=== PATIENT | male | born 1950 | race Hispanic/Latino ===

== ENCOUNTER 2019-02-23 00:08 | Emergency (ER) | payer MEDICARE ==
[2019-02-23] MEDS ORDERED: NACL 0.9% 1000 ML 1,000 ML IV ONE (00:55)
[2019-02-23 01:23] LABS: Basophils % (Auto) 0.7 % (0.0-1.8); Eosinophils # (Auto) 0.1 K/mm3 (0.0-0.4); Eosinophils % (Auto) 2.7 % (0.0-4.3); Hematocrit 44.5 % (35.5-45.6); Hemoglobin 15.5 gm/dl (11.8-15.2); Lymphocytes # (Auto) 1.1 K/mm3 (1.2-5.4); Lymphocytes % (Auto) 27.4 % (13.4-35.0); Mean Corpuscular HGB Conc 35 % (32-34); Mean Corpuscular Volume 98 fl (84-94); Monocytes # (Auto) 0.5 K/mm3 (0.0-0.8); Monocytes % (Auto) 11.7 % (0.0-7.3); Platelet Count 166 K/mm3 (140-440); Red Blood Count 4.55 M/mm3 (3.65-5.03); Red Cell Distribution Width 16.2 % (13.2-15.2)
[2019-02-23 01:31] LABS: INR 0.88 (0.87-1.13)
[2019-02-23 01:43] LABS: Albumin 3.7 g/dL (3.9-5); Calcium 9.4 mg/dL (8.4-10.2)
[2019-02-23 04:02] VITALS: BP 150/85
--- NOTE | 2019-02-23 04:38 | Cat Scan Report ---
PROCEDURE: CT HEAD/BRAIN WO CON TECHNIQUE: Computerized tomography of the head was performed without contrast material. HISTORY: weakness COMPARISONS: None . FINDINGS: Skull and scalp: Normal . Paranasal sinuses: Normal . Ventricles and subarachnoid spaces: Normal . Cerebrum: No evidence of hemorrhage, acute infarction or mass. Mild atrophy is noted . Cerebellum and brainstem: No evidence of hemorrhage, acute infarction or mass . Vasculature: Normal . Other: None . ASPECTS: 10 IMPRESSION: There is no evidence of an acute intracranial process. . This document is electronically signed by Sunshine Holley DO., Feb 23 2019 04:36:45 AM ET
--- NOTE | 2019-02-23 04:55 | Emergency Department Report ---
- General Chief complaint: Weakness Stated complaint: WEAKNESS Time Seen by Provider: 02/23/19 00:54 Source: patient, EMS Mode of arrival: Wheelchair Limitations: Physical Limitation - History of Present Illness Initial comments: Patient presents with generalized weakness, frequent fall for the past two - three months. He denies any focal weakness, n/v, chest pain or sob. His symptoms gets worse after taking his medications. no alleviating factors. he gets around with a cane, which helps a lot. - Related Data Home Medications Medication Instructions Recorded Confirmed Last Taken Divalproex ER [Depakote ER] 500 mg PO QHS 12/18/13 08/01/14 Unknown traZODone [Desyrel] 150 mg PO QHS 12/18/13 08/01/14 Unknown Allergies Allergy/AdvReac Type Severity Reaction Status Date / Time No Known Allergies Allergy Verified 08/01/14 07:29 ED Review of Systems ROS: Stated complaint: WEAKNESS Other details as noted in HPI Comment: All other systems reviewed and negative Respiratory: denies: cough Cardiovascular: denies: chest pain, dyspnea on exertion Gastrointestinal: denies: abdominal pain, nausea, vomiting Genitourinary: denies: urgency Musculoskeletal: denies: back pain Skin: denies: rash Neurological: weakness. denies: headache ED Past Medical Hx - Past Medical History Previous Medical History?: Yes Hx Psychiatric Treatment: Yes Additional medical history: Bipolar, anxiety, hyperlipidemia - Social History Smoking Status: Never Smoker Substance Use Type: Alcohol - Medications Home Medications: Home Medications Medication Instructions Recorded Confirmed Last Taken Type Divalproex ER [Depakote ER] 500 mg PO QHS 12/18/13 08/01/14 Unknown History traZODone [Desyrel] 150 mg PO QHS 12/18/13 08/01/14 Unknown History ED Physical Exam - General Limitations: Physical Limitation General appearance: alert - Head Head exam: Present: atraumatic, normocephalic - Eye Eye exam: Present: normal appearance Pupils: Present: normal accommodation - ENT ENT exam: Present: normal exam - Neck Neck exam: Present: normal inspection - Respiratory Respiratory exam: Present: normal lung sounds bilaterally - Cardiovascular Cardiovascular Exam: Present: regular rate - GI/Abdominal GI/Abdominal exam: Present: soft, normal bowel sounds - Rectal Rectal exam: Present: deferred - Extremities Exam Extremities exam: Present: normal inspection, full ROM - Back Exam Back exam: Present: normal inspection, full ROM - Neurological Exam Neurological exam: Present: alert, oriented X3, CN II-XII intact - Assessment Assessment Interval: Baseline - Level of Consciousness 1a. Level of Consciousness: alert/keenly responsive - LOC Questions 1b. LOC Questions: answers both correctly - LOC Command 1c. LOC Commands: performs tasks correctly - Best Gaze 2. Best Gaze: normal - Visual 3. Visual: no visual loss - Facial Palsy 4. Facial Palsy: normal symmetrical movement - Motor Arm 5a. Motor Arm Left: no drift 5b. Motor Arm Right: no drift - Motor Leg 6a. Motor Leg Left: no drift 6b. Motor Leg Right: no drift - Limb Ataxia 7. Limb Ataxia: absent - Sensory 8. Sensory: normal - Best Language 9. Best Language: no aphasia - Dysarthria 10. Dysarthria: normal - Extinction and Inattention 11. Extinction/Inattention: no abnormality - Scoring Total Score: 0 Stroke Severity: No Stroke Symptoms ED Course Vital Signs 02/23/19 02/23/19 02/23/19 00:12 00:15 00:16 Temperature 97.9 F Pulse Rate 82 87 Respiratory 20 19 Rate Blood Pressure 129/82 O2 Sat by Pulse 99 99 99 Oximetry 02/23/19 02/23/19 02/23/19 00:30 00:45 01:00 Temperature Pulse Rate 79 79 70 Respiratory 19 19 13 Rate Blood Pressure 155/95 156/97 152/91 O2 Sat by Pulse 96 94 94 Oximetry 02/23/19 02/23/19 02/23/19 01:16 01:30 01:46 Temperature Pulse Rate 73 80 56 L Respiratory 16 18 14 Rate Blood Pressure 152/91 152/91 151/79 O2 Sat by Pulse 100 95 100 Oximetry 02/23/19 02/23/19 02/23/19 02:00 02:15 02:30 Temperature Pulse Rate 55 L 55 L 53 L Respiratory 10 L 9 L 7 L Rate Blood Pressure 151/79 152/82 152/82 O2 Sat by Pulse 99 98 99 Oximetry 02/23/19 02/23/19 02/23/19 02:45 03:00 03:15 Temperature Pulse Rate 54 L 54 L 60 Respiratory 11 L 16 20 Rate Blood Pressure 151/83 148/79 141/74 O2 Sat by Pulse 100 100 96 Oximetry 0502/23/19 02/23/19 03:30 03:45 04:00 Temperature Pulse Rate 56 L 54 L 59 L Respiratory 16 20 14 Rate Blood Pressure 136/75 138/76 150/85 O2 Sat by Pulse 98 98 98 Oximetry ED Medical Decision Making - Lab Data Result diagrams: 02/23/19 01:08 02/23/19 01:08 Critical care attestation.: If time is entered above; I have spent that time in minutes in the direct care of this critically ill patient, excluding procedure time. ED Disposition Clinical Impression: Weakness Disposition: DC-01 TO HOME OR SELFCARE Is pt being admited?: No Does the pt Need Aspirin: No Condition: Stable Instructions: Weakness (ED) Referrals: REDDY YAO MD [Primary Care Provider] - 3-5 Days
== END 2019-02-23 06:46 | disposition home or self-care (01) ==
LOC: ED 00:08
DX: R53.1 Weakness (principal); E78.5 Hyperlipidemia, unspecified
CPT/HCPCS: 36415; 70450; 80053; 85025; 85610; 99284; J7030; 96360

== ENCOUNTER 2019-04-23 23:23 | Emergency (ER) | payer MEDICARE ==
[2019-04-24] MEDS ORDERED: ATIVAN PO ONE (00:40)
[2019-04-24] MEDS ORDERED: ATIVAN ONE (00:40)
--- NOTE | 2019-04-24 00:41 | Emergency Department Report ---
<DAVID SNYDER - Last Filed: 04/24/19 10:13> ED General Adult HPI - General Chief complaint: Urogenital-Male Stated complaint: UNCONTROLLED BADDER AND BOWELS Time Seen by Provider: 04/24/19 00:28 - Related Data Home Medications Medication Instructions Recorded Confirmed Last Taken Divalproex ER [Depakote ER] 500 mg PO QHS 12/18/13 04/24/19 Unknown traZODone [Desyrel] 100 mg PO QHS 12/18/13 04/24/19 Unknown Allergies Allergy/AdvReac Type Severity Reaction Status Date / Time No Known Allergies Allergy Verified 08/01/14 07:29 ED Past Medical Hx - Medications Home Medications: Home Medications Medication Instructions Recorded Confirmed Last Taken Type Divalproex ER [Depakote ER] 500 mg PO QHS 12/18/13 04/24/19 Unknown History traZODone [Desyrel] 100 mg PO QHS 12/18/13 04/24/19 Unknown History ED Course - Consultations Consultation #1: 04/24/19 10:13 case management consult performed. handwritten script for wheelchair provided. ED Medical Decision Making - Lab Data Result diagrams: 04/24/19 00:49 04/24/19 00:49 - Medical Decision Making case management consult compelted at 11:57 pt will have a wheelchair coming to his house Pt did receive po potassium in ed for mild hypokalemia Patient will be discharged home ED Disposition Clinical Impression: Ankle fracture, left, Unable to ambulate, Encounter for wheelchair assessment Disposition: DC-01 TO HOME OR SELFCARE Is pt being admited?: No Does the pt Need Aspirin: No Condition: Stable Instructions: Ankle Fracture (ED) Additional Instructions: . Follow up with your doctor or the clinic/doctor provided. Return if symptoms worsen as indicated by your discharge instructions Referrals: your, orthopedic doctor [Other] - 3-5 Days MICKEY BRENNAN MD [Staff Physician] - 3-5 Days (Orthopedic) Time of Disposition: 11:58 <OLGA LIDIA PISANO - Last Filed: 04/24/19 20:16> ED General Adult HPI - General Source: patient, EMS Mode of arrival: Stretcher Limitations: Physical Limitation - History of Present Illness Initial comments: Patient is 68 years old male with history of hypertension, bipolar disorder and alcohol the Bipolar disorder. Patient brought to the emergency room from home by EMS. Patient called 911 stating that he is unable to care for himself. EMS stated that patient was found crawling on the floor. Patient had a left ankle fracture status post surgery at [facility] with a left leg cast in place. Patient stated that he lived by himself but he is unable to take care of himself since this injury. Patient was recently discharged from a rehabilitation from [facility]. Patient stated that he started urinating and defecating on himself because he is unable to move. Patient denied any chest pain, shortness of breath, abdominal pain or any other symptoms. Severity scale (0 -10): 0 ED Review of Systems ROS: Stated complaint: UNCONTROLLED BADDER AND BOWELS Other details as noted in HPI Comment: All other systems reviewed and negative Constitutional: denies: chills, fever Respiratory: denies: cough, shortness of breath, SOB with exertion, wheezing Cardiovascular: denies: chest pain Gastrointestinal: denies: abdominal pain, nausea ED Past Medical Hx - Past Medical History Previous Medical History?: Yes Hx Hypertension: Yes Hx Psychiatric Treatment: Yes Additional medical history: Bipolar, anxiety, hyperlipidemia, tremors - Surgical History Past Surgical History?: Yes Additional Surgical History: left leg with cast. - Social History Smoking Status: Former Smoker Substance Use Type: None ED Physical Exam - General Limitations: Physical Limitation General appearance: alert, in no apparent distress - Head Head exam: Present: atraumatic, normocephalic, normal inspection - Eye Eye exam: Present: normal appearance, PERRL - ENT ENT exam: Present: normal exam, normal orophraynx, mucous membranes moist - Neck Neck exam: Present: normal inspection, full ROM. Absent: tenderness, meningismus, lymphadenopathy, thyromegaly - Respiratory Respiratory exam: Present: normal lung sounds bilaterally - Cardiovascular Cardiovascular Exam: Present: regular rate, normal rhythm, normal heart sounds - GI/Abdominal GI/Abdominal exam: Present: soft, normal bowel sounds. Absent: distended, tenderness, guarding, rebound, rigid, organomegaly, mass, bruit, pulsatile mass, hernia - Extremities Exam Extremities exam: Present: normal inspection, full ROM, normal capillary refill, other (left leg with a posterior splint.) - Back Exam Back exam: Present: normal inspection, full ROM. Absent: CVA tenderness (R), CVA tenderness (L) - Neurological Exam Neurological exam: Present: alert, oriented X3, CN II-XII intact - Skin Skin exam: Present: warm ED Course Vital Signs 04/23/19 04/24/19 04/24/19 23:48 04:59 06:55 Temperature 98.2 F Pulse Rate 96 H 81 Respiratory 16 16 16 Rate Blood Pressure 122/74 Blood Pressure 122/74 117/68 [Right] O2 Sat by Pulse 99 100 Oximetry ED Medical Decision Making - Lab Data Result diagrams: 04/24/19 00:49 04/24/19 00:49 - EKG Data -: EKG Interpreted by Ct EKG shows normal: sinus rhythm Rate: normal - EKG Data Interpretation: no acute changes - Medical Decision Making Patient is 68 years old male with history of hypertension, bipolar disorder and alcohol the [place]'s. Patient brought to the emergency room from home by EMS. Patient called 911 stating that he is unable to care for himself. EMS stated that patient was found crawling on the floor. Patient had a left ankle fracture status post surgery at [facility] with a left leg cast in place. Patient stated that he lived by himself but he is unable to take care of himself since this injury. Patient was recently discharged from a rehabilitation from [facility]. Patient stated that he started urinating and defecating on himself because he is unable to move. Patient denied any chest pain, shortness of breath, abdominal pain or any other symptoms. Patient labs reviewed that is unremarkable. Patient will need placement. Patient is for social consult in the morning. Critical care attestation.: If time is entered above; I have spent that time in minutes in the direct care of this critically ill patient, excluding procedure time.
[2019-04-24 01:05] LABS: Hematocrit 39.3 % (35.5-45.6); Mean Corpuscular HGB Conc 36 % (32-34); Mean Corpuscular Volume 97 fl (84-94); Platelet Count 243 K/mm3 (140-440); Red Blood Count 4.04 M/mm3 (3.65-5.03); Red Cell Distribution Width 14.6 % (13.2-15.2)
[2019-04-24 01:27] LABS: Alanine Aminotransferase 43 units/L (7-56); Albumin 3.5 g/dL (3.9-5); BUN/Creatinine Ratio 24; Blood Urea Nitrogen 17 mg/dL (9-20); Hemolysis Index 15
[2019-04-24 01:42] LABS: Bilirubin,Direct < 0.2 mg/dL (0-0.2)
[2019-04-24 05:00] VITALS: BP 117/68
[2019-04-24] MEDS ORDERED: K-DUR PO ONE (06:44)
[2019-04-24] MEDS ORDERED: IBUPROFEN PO ONE (06:45)
[2019-04-24] MEDS ORDERED: IBUPROFEN ONE (06:49)
== END 2019-04-24 13:22 | disposition home or self-care (01) ==
LOC: ED 23:23
DX: S82.892A Other fracture of left lower leg, initial encounter for closed fracture (principal); I10 Essential (primary) hypertension; F31.9 Bipolar disorder, unspecified; F41.9 Anxiety disorder, unspecified; E78.5 Hyperlipidemia, unspecified; Z87.891 Personal history of nicotine dependence; Z79.899 Other long term (current) drug therapy; X58.XXXA Exposure to other specified factors, initial encounter; Y93.89 Activity, other specified; Y92.89 Other specified places as the place of occurrence of the external cause; Y99.8 Other external cause status
CPT/HCPCS: 36415; 80053; 80076; 82550; 84484; 85027; 93005; 93010

== ENCOUNTER 2019-06-11 22:52 | Emergency (ER) | payer MEDICARE ==
--- NOTE | 2019-06-11 23:35 | Emergency Department Report ---
HPI - General Chief Complaint: Psych Time Seen by Provider: 06/11/19 23:10 - HPI HPI: 68-year-old male presents to the emergency department via EMS from home with the complaint of depression and suicidal ideations. The patient broke his left ankle about 3 months ago and he has been living at home alone trying to take care of himself, his pet, and says that he is fed up with the living situation. The patient was previously at the [facility] after his injury. He was also in our emergency department in late April for com plaints of having difficulty taking care of himself but he was more of a case management issue then psychiatric, at that time. He says that he has a history of manic depression but previous records state there is a history of bipolar disorder. The patient follows with Dr. Benoit Araiza for psychiatry. He says he is previously on clonazepam but he has been out of this medication for the past month or 2 as he says someone else "picked it up" and therefore he was told he was not able to get any refill. Patient says that he has thoughts of harming himself "if I have to continue living like this." He denies any homicidal ideations. He denies any current hallucinations but says that he will have them sometimes. ED Past Medical Hx - Past Medical History Previous Medical History?: Yes Hx Hypertension: Yes Hx Psychiatric Treatment: Yes Additional medical history: Bipolar, anxiety, hyperlipidemia, tremors - Surgical History Past Surgical History?: Yes Additional Surgical History: left leg with cast. - Social History Smoking Status: Never Smoker Substance Use Type: Alcohol - Medications Home Medications: Home Medications Medication Instructions Recorded Confirmed Last Taken Type Divalproex ER [Depakote ER] 500 mg PO QHS 12/18/13 06/12/19 Unknown History traZODone [Desyrel] 100 mg PO QHS 12/18/13 06/12/19 Unknown History ED Review of Systems ROS: Stated complaint: MH EVAL Other details as noted in HPI Comment: All other systems reviewed and negative Constitutional: denies: chills, fever Eyes: denies: eye pain, vision change ENT: denies: ear pain, throat pain Respiratory: denies: cough, shortness of breath Cardiovascular: denies: chest pain, palpitations Gastrointestinal: denies: abdominal pain, vomiting Genitourinary: denies: dysuria, discharge Musculoskeletal: arthralgia (chronic left ankle and leg pain from fracture). denies: back pain Skin: denies: rash, lesions Neurological: denies: headache, numbness Psychiatric: depression, suicidal thoughts. denies: homicidal thoughts Physical Exam - Physical Exam Vital Signs: Vital Signs 06/11/19 23:24 Temperature 98.2 F Pulse Rate 67 Respiratory 19 Rate Blood Pressure 107/61 [Left] O2 Sat by Pulse 99 Oximetry Physical Exam: GENERAL: The patient is well-developed well-nourished. HENT: Normocephalic. Atraumatic. Patient has moist mucous membranes. EYES: Extraocular motions are intact. NECK: Supple. Trachea is midline. CHEST/LUNGS: Clear to auscultation. There is no respiratory distress noted. HEART/CARDIOVASCULAR: Regular. There is no tachycardia. There is no murmur. ABDOMEN: Abdomen is soft, nontender. Patient has normal bowel sounds. There is no abdominal distention. SKIN: Skin is warm and dry. NEURO: The patient is awake, alert, and oriented. The patient is cooperative. The patient has no focal neurologic deficits. Normal speech. MUSCULOSKELETAL: There is no tenderness or deformity. Left lower extremity in a cast. Capillary refill less than 2 seconds to the affected left toes. ED Course Vital Signs 06/11/19 23:24 Temperature 98.2 F Pulse Rate 67 Respiratory 19 Rate Blood Pressure 107/61 [Left] O2 Sat by Pulse 99 Oximetry ED Medical Decision Making - Lab Data Result diagrams: 06/11/19 23:33 06/11/19 23:33 - Medical Decision Making This patient presents to the emergency department with suicidal ideations and depression secondary to his current living situation. He is having difficulty taking care of himself, his pet, with the broken ankle/leg. He also appears to have a psychiatric history of manic depression versus bipolar disorder and has not been on his medications. He was made a 1013. Labs are unremarkable. Vital signs stable throughout his ED course. The patient is medically cleared for psychiatric placement. - Differential Diagnosis depression, bipolar disorder, substance abuse Critical Care Time: No Critical care attestation.: If time is entered above; I have spent that time in minutes in the direct care of this critically ill patient, excluding procedure time. ED Disposition Clinical Impression: Suicidal ideations Depression Qualifiers: Depression Type: unspecified Qualified Code(s): F32.9 - Major depressive disorder, single episode, unspecified Is pt being admited?: No Condition: Stable Time of Disposition: 06:27
[2019-06-11 23:43] LABS: Basophils % (Auto) 0.8 % (0.0-1.8); Eosinophils % (Auto) 0.9 % (0.0-4.3); Hematocrit 40.2 % (35.5-45.6); Hemoglobin 13.7 gm/dl (11.8-15.2); Lymphocytes # (Auto) 1.4 K/mm3 (1.2-5.4); Lymphocytes % (Auto) 25.3 % (13.4-35.0); Mean Corpuscular HGB Conc 34 % (32-34); Mean Corpuscular Volume 93 fl (84-94); Monocytes # (Auto) 0.4 K/mm3 (0.0-0.8); Monocytes % (Auto) 7.9 % (0.0-7.3); Platelet Count 280 K/mm3 (140-440); Red Blood Count 4.32 M/mm3 (3.65-5.03); Red Cell Distribution Width 13.4 % (13.2-15.2)
[2019-06-12 00:03] LABS: BUN/Creatinine Ratio 11; Blood Urea Nitrogen 12 mg/dL (9-20); Calcium 9.1 mg/dL (8.4-10.2); Hemolysis Index 12
[2019-06-12] MEDS ORDERED: IBUPROFEN PO ONE (01:19)
[2019-06-12] MEDS ORDERED: XANAX PO ONE (01:19)
[2019-06-12 05:38] LABS: Amphetamine Screen,Urine PRESUMPTIVE NEGATIVE; Benzodiazepines Screen,Urine PRESUMPTIVE NEGATIVE; Cannabinoid Screen,Urine PRESUMPTIVE NEGATIVE; Cocaine Screen,Urine PRESUMPTIVE NEGATIVE; Methadone Screen,Urine PRESUMPTIVE NEGATIVE; Opiate Screen,Urine PRESUMPTIVE NEGATIVE
[2019-06-12 05:41] LABS: Bacteria,Urine 1+ /HPF (Negative); Bilirubin,Urine NEG (Negative); Blood,Urine NEG (Negative); Color,Urine Yellow (Yellow); Mucus,Urine FEW /HPF; Protein,Urine <15 mg/dL mg/dL (Negative); Urobilinogen,Urine < 2.0 mg/dL (<2.0)
[2019-06-12 08:07] VITALS: BP 117/80
--- NOTE | 2019-06-12 10:28 | Consultation ---
History of Present Illness - Reason for Consult Consult date: 06/12/19 Reason for consult: Mental Health Evaluation Requesting physician: MELODY GUPTA - Chief Complaint Chief complaint: "I will do it if I return home" - History of Present Psychiatric Illness 68 y.o. white male who presented to the ER for SI's. Today the patient was calm and cooperative during the assessment. He stated that he cannot take care of himself so he feel suicidal. He stated that he "broke his left ankle and was placed in a rehab facility for several weeks. He stated that he was told by staff at the rehab facility that he will have help at home when discharged, he stated, "I don't have any help. I'm all alone" He stated that life is hard for him and do not have any family support at this time. He rate his depression 7 /10, with 10 being the worse. He denies any previous suicide attempts when asked. He stated that he has a hx of depression and took Prozac in the past. He stated. "If I go home I will kill myself." He denies HI's and AVH's. He denies erratic sleep and a poor appetite. He denies recreational drug use, but acknowledged a hx of alcohol abuse. He stated that he have been sober for "21 years." Medications and Allergies Allergies Allergy/AdvReac Type Severity Reaction Status Date / Time No Known Allergies Allergy Verified 08/01/14 07:29 Home Medications Medication Instructions Recorded Confirmed Last Taken Type Divalproex ER [Depakote ER] 500 mg PO QHS 12/18/13 06/12/19 Unknown History traZODone [Desyrel] 100 mg PO QHS 12/18/13 06/12/19 Unknown History Past psychiatric history - Past Medical History Past Medical History: other (fx left ankle) Past Surgical History: No surgical history - past Psychiatric treatment and history psychiatric treatment history: H xof mood/anxiety do per the patient. Denies a fam psy hx. - Social History Social history: Lives alone Mental Status Exam - Vital signs Last Vital Signs Temp 97.5 F L 06/12/19 08:06 Pulse 64 06/12/19 08:06 Resp 18 06/12/19 08:06 BP 117/80 06/12/19 08:06 Pulse Ox 98 06/12/19 08:06 - Exam Narrative exam: MSE: Appearance: calm, cooperative Behavior: regular eye contact Speech: regular rate and low tone Mood: "okay" Affect: congruent to mood Thought Process: circumstantial Thought Content: denies HI's and AVH's Motor Activity: ambulatory Cognition: A/O x 3 Insight: variable Judgment: poor Results Result Diagrams: 06/11/19 23:33 06/11/19 23:33 Abnormal lab results 06/11/19 06/11/19 Range/Units 23:33 23:33 Lamar % (Auto) 7.9 H (0.0-7.3) % Glucose 120 H (75-100) mg/dL All other labs normal. Assessment and Plan Assessment and plan: Impression: MDD. Today the patient was calm during the assessment. The patient endorsed SI's. DDx: Bipolar DO Recommendation/Plan: Continue 1013. Dispo: The patient was accepted at [facility] for inpatient psy services. Staffed with Dr Debbie Canas.
[2019-06-12] MEDS ORDERED: ULTRAM PO ONE (11:23)
[2019-06-12] MEDS ORDERED: ATIVAN PO ONE (11:23)
== END 2019-06-12 12:19 | disposition other institution (70) ==
LOC: ED 22:52 → EEVIPCON 22:52 → ED 06-12 12:19
DX: F32.9 Major depressive disorder, single episode, unspecified (principal)
CPT/HCPCS: 36415; 80048; 80307; 80320; 81001; 85025; G0480

== ENCOUNTER 2019-07-16 02:46 | Emergency (ER) | payer MEDICARE ==
[2019-07-16] MEDS ORDERED: TORADOL IM ONE (04:31)
--- NOTE | 2019-07-16 05:22 | XRay Report ---
LEFT ANKLE, 3 VIEWS 07/16/2019 INDICATION / CLINICAL INFORMATION: ankle pain swelling. COMPARISON: None available. 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 There also appears to be a nonacute posterior tibial fracture which may be united. There are advanced degenerative changes of the ankle. There is posterior talar subluxation.. No acute fractures. Signer Name: Jose Raul Patel MD Signed: 07/16/2019 5:17 AM Workstation Name: [id number]
--- NOTE | 2019-07-16 05:30 | Emergency Department Report ---
ED Lower Extremity HPI - General Chief Complaint: Extremity Injury, Lower Stated Complaint: LEG PAIN Time Seen by Provider: 07/16/19 04:31 Source: patient, EMS Mode of arrival: Ambulatory Limitations: No Limitations - History of Present Illness Initial Comments: This is a 68-year-old white male who presents for left ankle pain patient states follow ankle fracture 4 months ago, patient was followed by orthopedics Dr. Reyes states he hadn't taken the splint off because it was bothering him and got too tight. patient presents tonight requesting splint and crutches. PT denies new fall injury or trauma, pt has been walking on ankle up to this point. symptoms include swelling and pain. MD Complaint: ankle injury Onset/Timin -: month(s) Injury: Ankle: Left (pain swelling ) Type of Injury: hyperextension Place: home Severity: moderate Severity scale (0 -10): 5 Worsens With: weight bearing, movement, palpation Context: fall Other Symptoms: other (none) Associated Symptoms: swelling, tingling, able to partially bear weight. denies: snap/pop sensation, numbness - Related Data Home Medications Medication Instructions Recorded Confirmed Last Taken Divalproex ER [Depakote ER] 500 mg PO QHS 12/18/13 06/12/19 Unknown traZODone [Desyrel] 100 mg PO QHS 12/18/13 06/12/19 Unknown Previous Rx's Medication Instructions Recorded Last Taken Type Acetaminophen/Codeine [Tylenol 1 tab PO Q6H PRN #12 tab 07/16/19 Unknown Rx /Codeine # 3 tab] Allergies Allergy/AdvReac Type Severity Reaction Status Date / Time No Known Allergies Allergy Verified 08/01/14 07:29 ED Review of Systems ROS: Stated complaint: LEG PAIN Other details as noted in HPI Constitutional: denies: chills, fever Eyes: denies: eye pain, eye discharge, vision change ENT: denies: ear pain, throat pain Respiratory: denies: cough, shortness of breath, wheezing Cardiovascular: denies: chest pain, palpitations Endocrine: no symptoms reported Gastrointestinal: denies: abdominal pain, nausea, diarrhea Genitourinary: denies: urgency, dysuria Musculoskeletal: joint swelling (left ankle ), arthralgia Skin: denies: rash, lesions Neurological: denies: headache, weakness, paresthesias Psychiatric: denies: anxiety, depression Hematological/Lymphatic: denies: easy bleeding, easy bruising ED Past Medical Hx - Past Medical History Previous Medical History?: Yes Hx Hypertension: Yes Hx Psychiatric Treatment: Yes Additional medical history: Bipolar, anxiety, hyperlipidemia, tremors - Surgical History Past Surgical History?: No Additional Surgical History: left leg with cast. - Social History Smoking Status: Never Smoker Substance Use Type: None - Medications Home Medications: Home Medications Medication Instructions Recorded Confirmed Last Taken Type Divalproex ER [Depakote ER] 500 mg PO QHS 12/18/13 06/12/19 Unknown History traZODone [Desyrel] 100 mg PO QHS 12/18/13 06/12/19 Unknown History Acetaminophen/Codeine [Tylenol 1 tab PO Q6H PRN #12 tab 07/16/19 Unknown Rx /Codeine # 3 tab] ED Physical Exam - General Limitations: No Limitations General appearance: alert, in no apparent distress - Head Head exam: Present: atraumatic, normocephalic - Eye Eye exam: Present: normal appearance, PERRL, EOMI Pupils: Present: normal accommodation - ENT ENT exam: Present: mucous membranes moist - Neck Neck exam: Present: normal inspection, full ROM. Absent: tenderness - Respiratory Respiratory exam: Present: normal lung sounds bilaterally. Absent: respiratory distress, wheezes, stridor, chest wall tenderness - Cardiovascular Cardiovascular Exam: Present: regular rate, normal rhythm, normal heart sounds. Absent: systolic murmur, diastolic murmur, rubs, gallop - GI/Abdominal GI/Abdominal exam: Present: soft, normal bowel sounds - Rectal Rectal exam: Present: deferred - Extremities Exam Extremities exam: Present: normal inspection, tenderness, normal capillary refill, joint swelling - Back Exam Back exam: Present: normal inspection, full ROM. Absent: tenderness, CVA tenderness (R), CVA tenderness (L) - Neurological Exam Neurological exam: Present: alert, oriented X3 - Psychiatric Psychiatric exam: Present: normal mood, anxious - Skin Skin exam: Present: warm, dry, intact, normal color. Absent: rash ED Course Vital Signs 07/16/19 07/16/19 02:56 04:52 Temperature 97.6 F Pulse Rate 85 Respiratory 18 16 Rate Blood Pressure 143/90 O2 Sat by Pulse 96 Oximetry ED Lower Extremity MDM - EKG Data Interpretation: normal EKG - Radiology Data Radiology results: report reviewed, image reviewed Loc: ED Attending Dr: Ordering Physician: HANH JOHNS NP Date of Service: 07/16/19 Procedure(s): XR ankle 3+V LT Accession Number(s): [id number] cc: HANH JOHNS NP Fluoro Time In Minutes: LEFT ANKLE, 3 VIEWS 07/16/2019 INDICATION / CLINICAL INFORMATION: ankle pain swelling. COMPARISON: None available. 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 There also appears to be a nonacute posterior tibial fracture which may be united. There are advanced degenerative changes of the ankle. There is posterior talar subluxation.. No acute fractures. Signer Name: Jose Raul Patel MD Signed: 07/16/2019 5:17 AM Workstation Name: [id number] Transcribed By: GA Dictated By: Jose Raul Patel MD Electronically Authenticated By: Jose Raul Patel MD Signed Date/Time: 07/16/19 0517 - Medical Decision Making Mrs. an old fracture patient continues to walk on leg and removed symptoms for plan we'll place velcro ankle stirrup, crutches and follow up with orthopedic surgery, in 2-3 days, tylenol #3 prn pain , pt verbalized agreement and understanding of discharge plan, splint check, distal pusles +2, splint spacing is appropriate. Critical care attestation.: If time is entered above; I have spent that time in minutes in the direct care of this critically ill patient, excluding procedure time. ED Disposition Clinical Impression: Musculoskeletal pain Ankle fracture, left Qualifiers: Encounter type: initial encounter Fracture type: closed Qualified Code(s): S82.892A - Other fracture of left lower leg, initial encounter for closed fracture Disposition: -01 TO HOME OR SELFCARE Is pt being admited?: No Does the pt Need Aspirin: No Condition: Stable Instructions: Ankle Fracture (ED), Crutch Instructions (ED), Splint Care (ED) Prescriptions: Acetaminophen/Codeine [Tylenol /Codeine # 3 tab] 1 tab PO Q6H PRN #12 tab PRN Reason: pain Referrals: MICKEY BRENNAN MD [Staff Physician] - 3-5 Days Time of Disposition: 05:56
[2019-07-16 07:03] VITALS: BP 141/92
== END 2019-07-16 07:01 | disposition home or self-care (01) ==
LOC: ED 02:46
DX: S82.892A Other fracture of left lower leg, initial encounter for closed fracture (principal); I10 Essential (primary) hypertension; F31.9 Bipolar disorder, unspecified; Z79.899 Other long term (current) drug therapy; X58.XXXA Exposure to other specified factors, initial encounter; Y93.89 Activity, other specified; Y92.89 Other specified places as the place of occurrence of the external cause; Y99.8 Other external cause status
CPT/HCPCS: 29515; 73610; 96372; 99283; J1885

== ENCOUNTER 2019-09-23 14:33 | Emergency (ER) | payer MEDICARE ==
[2019-09-23] MEDS ORDERED: HYDROcodone/ACETAMINOPHEN 5-325 MG TAB PO ONE (19:26)
--- NOTE | 2019-09-23 19:35 | Emergency Department Report ---
ED Lower Extremity HPI - General Chief Complaint: Extremity Injury, Lower Stated Complaint: CHEST PAIN/LT ANKLE PAIN Time Seen by Provider: 09/23/19 18:36 Source: patient, EMS Mode of arrival: Ambulatory Limitations: Physical Limitation - History of Present Illness Initial Comments: Mr. Berry is a 68-year-old white male who presents for left ankle pain , this is acute on chronic 02/09, patient denies no fall injury or trauma. Patient is status post ORIF repair of same In April of this year. Mr. Peacock denies chest pain ,or shortness of breath, no nausea vomiting ,no diaphoresis. He states that quickly or chest pain, [place] have any chest pain, problems my ankle. Patient states his taken hydrocodone when necessary for pain and is out of medi cation. Mr. Flores was handed to the [facility] gait at this time witnessed by this provider and treatment and evaluation room. MD Complaint: ankle injury Onset/Timin -: month(s) Injury: Ankle: Left Type of Injury: other (hx of fx with orif ) Place: home Severity: moderate Severity scale (0 -10): 5 Improves With: NSAID Worsens With: weight bearing, movement, palpation Context: walking Associated Symptoms: swelling, ambulatory. denies: snap/pop sensation, numbness, tingling - Related Data Home Medications Medication Instructions Recorded Confirmed Last Taken Divalproex ER [Depakote ER] 500 mg PO QHS 12/18/13 08/01/19 Unknown traZODone [Desyrel] 100 mg PO QHS 12/18/13 08/01/19 Unknown Previous Rx's Medication Instructions Recorded Last Taken Type Nitrofurantoin Macrocrysta(Nf) 100 mg PO BID #10 capsule 08/01/19 Unknown Rx [Macrodantin CAP] Folic Acid [Folvite] 1 mg PO QDAY #30 tablet 08/03/19 Unknown Rx Multivitamin Tab [Multiple Vitamin 1 each PO QDAY #30 tablet 08/03/19 Unknown Rx TAB (Theragran)] Primidone [Mysoline] 50 mg PO BID #60 tablet 08/03/19 Unknown Rx Thiamine [Vitamin B-1] 100 mg PO QDAY #30 tablet 08/03/19 Unknown Rx Acetaminophen [Tylenol] 1,000 mg PO Q6HR PRN #30 tablet 09/23/19 Unknown Rx Diclofenac 1% [Diclofenac 1% 1 applicatio TP QID PRN #1 tube 09/23/19 Unknown Rx topical gel] Allergies Allergy/AdvReac Type Severity Reaction Status Date / Time No Known Allergies Allergy Verified 08/01/14 07:29 ED Review of Systems ROS: Stated complaint: CHEST PAIN/LT ANKLE PAIN Other details as noted in HPI Constitutional: denies: chills, fever Eyes: denies: eye pain, eye discharge, vision change ENT: denies: ear pain, throat pain Respiratory: denies: cough, shortness of breath, wheezing Cardiovascular: denies: chest pain, palpitations Endocrine: no symptoms reported Gastrointestinal: denies: abdominal pain, nausea, diarrhea Genitourinary: denies: urgency, dysuria Musculoskeletal: joint swelling, arthralgia, myalgia. denies: back pain Skin: denies: rash, lesions Neurological: denies: headache, weakness, paresthesias Psychiatric: denies: anxiety, depression Hematological/Lymphatic: denies: easy bleeding, easy bruising ED Past Medical Hx - Past Medical History Previous Medical History?: Yes Hx Hypertension: Yes Hx Seizures: Yes Hx Psychiatric Treatment: Yes Additional medical history: Bipolar, anxiety, hyperlipidemia, tremors, alcohol abuse, Chest pain - Surgical History Past Surgical History?: No Additional Surgical History: left leg with cast. - Social History Smoking Status: Never Smoker Substance Use Type: None - Medications Home Medications: Home Medications Medication Instructions Recorded Confirmed Last Taken Type Divalproex ER [Depakote ER] 500 mg PO QHS 12/18/13 08/01/19 Unknown History traZODone [Desyrel] 100 mg PO QHS 12/18/13 08/01/19 Unknown History Nitrofurantoin Macrocrysta(Nf) 100 mg PO BID #10 capsule 08/01/19 Unknown Rx [Macrodantin CAP] Folic Acid [Folvite] 1 mg PO QDAY #30 tablet 08/03/19 Unknown Rx Multivitamin Tab [Multiple Vitamin 1 each PO QDAY #30 tablet 08/03/19 Unknown Rx TAB (Theragran)] Primidone [Mysoline] 50 mg PO BID #60 tablet 08/03/19 Unknown Rx Thiamine [Vitamin B-1] 100 mg PO QDAY #30 tablet 08/03/19 Unknown Rx Acetaminophen [Tylenol] 1,000 mg PO Q6HR PRN #30 tablet 09/23/19 Unknown Rx Diclofenac 1% [Diclofenac 1% 1 applicatio TP QID PRN #1 tube 09/23/19 Unknown Rx topical gel] ED Physical Exam - General Limitations: Physical Limitation General appearance: alert, in no apparent distress - Head Head exam: Present: atraumatic, normocephalic - Eye Eye exam: Present: normal appearance, PERRL, EOMI Pupils: Present: normal accommodation - ENT ENT exam: Present: mucous membranes moist - Neck Neck exam: Present: normal inspection - Respiratory Respiratory exam: Present: normal lung sounds bilaterally, chest wall tenderness. Absent: respiratory distress, wheezes, stridor - Cardiovascular Cardiovascular Exam: Present: regular rate, normal rhythm, normal heart sounds. Absent: systolic murmur, diastolic murmur, rubs, gallop - GI/Abdominal GI/Abdominal exam: Present: soft, normal bowel sounds. Absent: distended, tenderness, bruit, hernia - Rectal Rectal exam: Present: deferred - Extremities Exam Extremities exam: Present: normal inspection, full ROM, normal capillary refill, joint swelling. Absent: tenderness - Expanded Lower Extremity Exam Left Ankle exam: Present: full ROM, swelling, deformity (this is chronic ). Absent: tenderness, abrasion, laceration, ecchymosis, crepidus, dislocation, erythema, anterior draw sign Foot/Toe exam: Present: full ROM. Absent: tenderness, swelling Neuro vascular tendon exam: Absent: pulse deficit, motor deficit, sensory deficit, tendon deficit - Back Exam Back exam: Present: normal inspection, full ROM - Neurological Exam Neurological exam: Present: alert, oriented X3, CN II-XII intact, normal gait, reflexes normal. Absent: motor sensory deficit - Psychiatric Psychiatric exam: Present: normal affect, normal mood - Skin Skin exam: Present: warm, dry, intact, normal color. Absent: rash ED Course Vital Signs 09/23/19 15:17 Temperature 97.8 F Pulse Rate 63 Respiratory 18 Rate Blood Pressure 115/75 O2 Sat by Pulse 100 Oximetry ED Lower Extremity MDM - Medical Decision Making This is arthralgia, chronic ankle pain, plan: DC home prescription for Tylenol allergies mom follow-up with PCP in 2-3 days patient's alert oriented 3 and a steady gait DC'd in stable condition at this time Critical care attestation.: If time is entered above; I have spent that time in minutes in the direct care of this critically ill patient, excluding procedure time. ED Disposition Clinical Impression: Ankle pain, left Qualifiers: Chronicity: acute Qualified Code(s): M25.572 - Pain in left ankle and joints of left foot Disposition: TO HOME OR SELFCARE Is pt being admited?: No Does the pt Need Aspirin: No Condition: Stable Instructions: Arthralgia (ED) Prescriptions: Acetaminophen [Tylenol] 1,000 mg PO Q6HR PRN #30 tablet PRN Reason: pain Diclofenac 1% [Diclofenac 1% topical gel] 1 applicatio TP QID PRN #1 tube PRN Reason: pain Referrals: EDUAR YEE MD [Staff Physician] - 3-5 Days Forms: Work/School Release Form(ED) Time of Disposition: 19:44
[2019-09-23 20:26] VITALS: BP 118/77
[2019-09-24] MEDS ORDERED: ACETAMINOPHEN 325 MG TAB PO ONE (03:30)
[2019-09-24] MEDS ORDERED: ACETAMINOPHEN 325 MG TAB ONE (03:31)
== END 2019-09-24 04:30 | disposition home or self-care (01) ==
LOC: ED 14:33
DX: M25.572 Pain in left ankle and joints of left foot (principal); I10 Essential (primary) hypertension; G40.909 Epilepsy, unspecified, not intractable, without status epilepticus; F31.9 Bipolar disorder, unspecified; Z98.890 Other specified postprocedural states; Z79.899 Other long term (current) drug therapy

== ENCOUNTER 2019-10-30 19:17 | Observation (INO) | payer MEDICARE ==
[2019-10-30 21:19] LABS: Basophils % (Auto) 0.4 % (0.0-1.8); Eosinophils # (Auto) 0.1 K/mm3 (0.0-0.4); Eosinophils % (Auto) 1.6 % (0.0-4.3); Hematocrit 38.4 % (35.5-45.6); Hemoglobin 13.7 gm/dl (11.8-15.2); Lymphocytes # (Auto) 1.6 K/mm3 (1.2-5.4); Lymphocytes % (Auto) 21.7 % (13.4-35.0); Mean Corpuscular HGB Conc 36 % (32-34); Mean Corpuscular Volume 91 fl (84-94); Monocytes # (Auto) 0.5 K/mm3 (0.0-0.8); Monocytes % (Auto) 7.3 % (0.0-7.3); Platelet Count 197 K/mm3 (140-440); Red Blood Count 4.22 M/mm3 (3.65-5.03); Red Cell Distribution Width 13.9 % (13.2-15.2)
[2019-10-30 21:46] LABS: Alanine Aminotransferase 19 units/L (7-56); Albumin 4.1 g/dL (3.9-5); BUN/Creatinine Ratio 10; Blood Urea Nitrogen 13 mg/dL (9-20); Calcium 9.5 mg/dL (8.4-10.2); Hemolysis Index 3
--- NOTE | 2019-10-30 22:32 | Cat Scan Report ---
CT HEAD WITHOUT CONTRAST INDICATION / CLINICAL INFORMATION: Syncope. TECHNIQUE: All CT scans at this location are performed using CT dose reduction for ALARA by means of automated e xposure control. COMPARISON: Head CT dated 05/26/2019 FINDINGS: HEMORRHAGE: No evidence of intracranial hemorrhage or extra-axial fluid collection. EXTRA-AXIAL SPACES: Cortical sulci and sylvian fissures are enlarged reflecting a degree of parenchym al volume loss which is within normal limits for the patient's age. Basilar cisterns have an unremark able appearance. VENTRICULAR SYSTEM: The third and lateral ventricles are enlarged reflecting resonance of age related parenchymal volume loss. CEREBRAL PARENCHYMA: Mild periventricular and deep white matter lucency is observed. This is probably secondary to microvascular ischemic change. There is no indication of recent infarction. No areas of encephalomalacia are identified. MIDLINE SHIFT OR HERNIATION: There is no mass effect. CEREBELLUM / BRAINSTEM: Brainstem and cerebellum have an unremarkable appearance. INTRACRANIAL VESSELS:Calcified atherosclerotic plaque is present along the course of the cavernous se gments of both internal carotid arteries. Similar findings are seen at the distal vertebral arteries. ORBITS: visualized portions of the orbits have an unremarkable appearance. SOFT TISSUES of HEAD: No significant abnormality. CALVARIUM: Evaluation of bone windows reveals no abnormalities. PARANASAL SINUSES / MASTOID AIR CELLS: Paranasal sinuses are free from inflammatory mucosal disease. Mastoid air cells are normally pneumatized. IMPRESSION: 1. Mild age-related involutional changes of parenchymal volume loss and microvascular ischemia. 2. No acute intracranial abnormality. No interval change. Signer Name: Blaine Haas MD Signed: 10/30/2019 10:28 PM Workstation Name: [id number]
[2019-10-30 22:44] LABS: Bilirubin,Urine NEG (Negative); Blood,Urine NEG (Negative); Color,Urine Yellow (Yellow); Protein,Urine <15 mg/dL mg/dL (Negative); Urobilinogen,Urine < 2.0 mg/dL (<2.0); WBC,Urine < 1.0 /HPF (0.0-6.0)
--- NOTE | 2019-10-30 23:04 | Emergency Department Report ---
HPI <DAVID PRUITT - Last Filed: 10/31/19 05:14> - HPI HPI: 68-year-old male presents to the emergency department via EMS from his correction or assisted living facility after he had a syncopal episode. The patient says that he has to go upstairs to use the bathroom and was unable to make it. The patient soiled himself. Shortly after this the patient became lightheaded and passed out. Either prior to passing out or just afterwards the patient also vomited on himself. 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 He has a history of hypertension, bipolar disorder and early dementia. He did not take anything and was not given anything for his symptoms prior to presentation. At the time of my examination the patient has no complaints. He has a history of a broken ankle from March 2019 and still has some difficulty with ambulation secondary to this injury. <CANDYMELODY - Last Filed: 10/31/19 22:05> - General Chief Complaint: Syncope Time Seen by Provider: 10/30/19 20:47 ED Past Medical Hx <DAVID PRUITT - Last Filed: 10/31/19 05:14> - Past Medical History Hx Hypertension: Yes Hx Seizures: Yes Hx Psychiatric Treatment: Yes Additional medical history: Bipolar, anxiety, hyperlipidemia, tremors, alcohol abuse, Chest pain - Surgical History Additional Surgical History: left leg with cast. - Social History Smoking Status: Never Smoker Substance Use Type: None <MELODY GUPTA - Last Filed: 10/31/19 22:05> - Medications Home Medications: Home Medications Medication Instructions Recorded Confirmed Last Taken Type Propranolol [Inderal] 10 mg PO DAILY 10/31/19 10/31/19 Unknown History Ramelteon 8 mg PO DAILY 10/31/19 10/31/19 Unknown History Trazodone HCl [traZODone] 150 mg PO DAILY 10/31/19 10/31/19 Unknown History clonazePAM [Klonopin] 1 mg PO DAILY 10/31/19 10/31/19 Unknown History ED Review of Systems ROS: Stated complaint: SYNCOPE Other details as noted in HPI <DAVID PRUITT - Last Filed: 10/31/19 05:14> ROS: Stated complaint: SYNCOPE Other details as noted in HPI Comment: All other systems reviewed and negative Constitutional: denies: chills, fever Eyes: denies: eye pain, vision change ENT: denies: ear pain, throat pain Respiratory: denies: cough, shortness of breath Cardiovascular: syncope. denies: chest pain Gastrointestinal: other (one episode of bowel incontinence). denies: vomiting Genitourinary: denies: dysuria, discharge Musculoskeletal: denies: back pain, arthralgia Skin: denies: rash, lesions Neurological: denies: headache, weakness <SHEAR,MELODY S - Last Filed: 10/31/19 22:05> Physical Exam - Physical Exam Vital Signs: Vital Signs 10/30/19 10/30/19 10/30/19 20:40 20:41 20:42 Temperature 97.6 F Pulse Rate 51 L Respiratory 14 7 L Rate Blood Pressure 105/50 Blood Pressure [Right] O2 Sat by Pulse 97 97 Oximetry 10/30/19 10/30/19 10/30/19 20:45 21:00 21:15 Temperature Pulse Rate 51 L 50 L 52 L Respiratory 9 L 16 16 Rate Blood Pressure 97/59 106/63 96/61 Blood Pressure [Right] O2 Sat by Pulse 98 98 98 Oximetry 10/30/19 10/30/19 10/30/19 22:16 22:30 22:46 Temperature Pulse Rate 48 L 49 L 62 Respiratory 10 L 19 16 Rate Blood Pressure 108/59 107/57 114/57 Blood Pressure [Right] O2 Sat by Pulse 98 99 96 Oximetry 10/30/19 10/30/19 10/30/19 23:00 23:30 23:46 Temperature Pulse Rate 53 L 53 L 54 L Respiratory 17 19 18 Rate Blood Pressure 114/57 98/56 94/61 Blood Pressure [Right] O2 Sat by Pulse 97 98 94 Oximetry 10/31/19 10/31/19 10/31/19 00:00 00:15 00:30 Temperature Pulse Rate 50 L 51 L 51 L Respiratory 22 23 22 Rate Blood Pressure 93/49 90/52 89/53 Blood Pressure [Right] O2 Sat by Pulse 97 98 97 Oximetry 10/31/19 10/31/19 10/31/19 00:45 01:15 01:16 Temperature 98.0 F Pulse Rate 50 L 54 L 55 L Respiratory 23 12 18 Rate Blood Pressure 94/53 90/42 Blood Pressure 104/58 [Right] O2 Sat by Pulse 96 99 100 Oximetry 10/31/19 10/31/19 10/31/19 01:45 02:00 02:15 Temperature Pulse Rate 53 L 56 L 60 Respiratory 13 13 22 Rate Blood Pressure 108/62 108/62 105/53 Blood Pressure [Right] O2 Sat by Pulse 100 99 100 Oximetry 10/31/19 10/31/19 10/31/19 02:30 02:45 03:00 Temperature Pulse Rate 63 62 60 Respiratory 11 L 22 21 Rate Blood Pressure 111/50 105/49 104/45 Blood Pressure [Right] O2 Sat by Pulse 100 100 98 Oximetry <DAVID PRUITT - Last Filed: 10/31/19 05:14> - Physical Exam Vital Signs: Vital Signs 10/30/19 10/30/19 10/30/19 20:40 20:41 20:42 Temperature 97.6 F Pulse Rate 51 L Respiratory 14 7 L Rate Blood Pressure 105/50 O2 Sat by Pulse 97 97 Oximetry 10/30/19 10/30/19 10/30/19 20:45 21:00 21:15 Temperature Pulse Rate 51 L 50 L 52 L Respiratory 9 L 16 16 Rate Blood Pressure 97/59 106/63 96/61 O2 Sat by Pulse 98 98 98 Oximetry 10/30/19 22:16 Temperature Pulse Rate 48 L Respiratory 10 L Rate Blood Pressure 108/59 O2 Sat by Pulse 98 Oximetry Physical Exam: GENERAL: The patient is well-developed well-nourished. HEENT: Normocephalic. Atraumatic. Patient has moist mucous membranes. EYES: Extraocular motions are intact. Pupils equal and reactive to light bilat erally. No nystagmus. NECK: Supple. Trachea is midline. CHEST/LUNGS: Clear to auscultation. There is no respiratory distress noted. HEART/CARDIOVASCULAR: Regular. There is no tachycardia. There is no murmur. ABDOMEN: Abdomen is soft, nontender. Patient has normal bowel sounds. There is no abdominal distention. SKIN:Skin is warm and dry. . NEURO: The patient is awake, alert, and cooperative. The patient has no focal neurologic deficits. Normal speech. Cranial nerves II through XII grossly intact. No facial asymmetry. No pronator drift. MUSCULOSKELETAL: There is no tenderness or deformity. There is no evidence of acute injury. <SHEAR,MELODY S - Last Filed: 10/31/19 22:05> ED Course Vital Signs 10/30/19 10/30/19 10/30/19 20:40 20:41 20:42 Temperature 97.6 F Pulse Rate 51 L Respiratory 14 7 L Rate Blood Pressure 105/50 Blood Pressure [Right] O2 Sat by Pulse 97 97 Oximetry 10/30/19 10/30/19 10/30/19 20:45 21:00 21:15 Temperature Pulse Rate 51 L 50 L 52 L Respiratory 9 L 16 16 Rate Blood Pressure 97/59 106/63 96/61 Blood Pressure [Right] O2 Sat by Pulse 98 98 98 Oximetry 10/30/19 10/30/19 10/30/19 22:16 22:30 22:46 Temperature Pulse Rate 48 L 49 L 62 Respiratory 10 L 19 16 Rate Blood Pressure 108/59 107/57 114/57 Blood Pressure [Right] O2 Sat by Pulse 98 99 96 Oximetry 10/30/19 10/30/19 10/30/19 23:00 23:30 23:46 Temperature Pulse Rate 53 L 53 L 54 L Respiratory 17 19 18 Rate Blood Pressure 114/57 98/56 94/61 Blood Pressure [Right] O2 Sat by Pulse 97 98 94 Oximetry 10/31/19 10/31/19 10/31/19 00:00 00:15 00:30 Temperature Pulse Rate 50 L 51 L 51 L Respiratory 22 23 22 Rate Blood Pressure 93/49 90/52 89/53 Blood Pressure [Right] O2 Sat by Pulse 97 98 97 Oximetry 10/31/19 10/31/19 10/31/19 00:45 01:15 01:16 Temperature 98.0 F Pulse Rate 50 L 54 L 55 L Respiratory 23 12 18 Rate Blood Pressure 94/53 90/42 Blood Pressure 104/58 [Right] O2 Sat by Pulse 96 99 100 Oximetry 10/31/19 10/31/19 10/31/19 01:45 02:00 02:15 Temperature Pulse Rate 53 L 56 L 60 Respiratory 13 13 22 Rate Blood Pressure 108/62 108/62 105/53 Blood Pressure [Right] O2 Sat by Pulse 100 99 100 Oximetry 10/31/19 10/31/19 10/31/19 02:30 02:45 03:00 Temperature Pulse Rate 63 62 60 Respiratory 11 L 22 21 Rate Blood Pressure 111/50 105/49 104/45 Blood Pressure [Right] O2 Sat by Pulse 100 100 98 Oximetry - Reevaluation(s) Reevaluation #1: 10/31/19 03:28 Patient was signed out to myself. I went to evaluate the patient. He was found to be bradycardic in the 40s and 50s, with an initial blood pressure 80s over 50s. IV fluids ordered. The patient complained of chest pain and abdominal pain. He is a poor historian, I was not able to further describe the nature of the pain. Nursing team contacted patient's care facility, and there was concern for a possible propanolol overdose. The patient did indicate that he may have taken some propanolol. CT scan chest, abdomen and pelvis ordered because of complaint of chest pain, abdominal pain, bradycardia and hypotension. D-dimer is elevated. In addition, Poison Control Center was contacted, and they recommend o bservation, and further inpatient management. I agree with this plan of care. Blood pressure is improved after IV fluids, patient is mentating at what appears to be his baseline. Once CT scan results, we will admit the patient to the medical service for bradycardia, and observation for possible overdose, syncope evaluation. Reevaluation #2: 10/31/19 05:14 CT scan chest, abdomen and pelvis negative for acute disease. Case presented to Hospital physician, Dr. Orona, who graciously accepts the patient to the medical service. <DAVID PRUITT - Last Filed: 10/31/19 05:14> Vital Signs 10/30/19 10/30/19 10/30/19 20:40 20:41 20:42 Temperature 97.6 F Pulse Rate 51 L Respiratory 14 7 L Rate Blood Pressure 105/50 O2 Sat by Pulse 97 97 Oximetry 10/30/19 10/30/19 10/30/19 20:45 21:00 21:15 Temperature Pulse Rate 51 L 50 L 52 L Respiratory 9 L 16 16 Rate Blood Pressure 97/59 106/63 96/61 O2 Sat by Pulse 98 98 98 Oximetry 10/30/19 22:16 Temperature Pulse Rate 48 L Respiratory 10 L Rate Blood Pressure 108/59 O2 Sat by Pulse 98 Oximetry <MELODY GUPTA - Last Filed: 10/31/19 22:05> ED Medical Decision Making - Lab Data Result diagrams: 10/30/19 21:03 10/30/19 21:03 Vital Signs 10/30/19 10/30/19 10/30/19 20:40 20:41 20:42 Temperature 97.6 F Pulse Rate 51 L Respiratory 14 7 L Rate Blood Pressure 105/50 Blood Pressure [Right] O2 Sat by Pulse 97 97 Oximetry 10/30/19 10/30/19 10/30/19 20:45 21:00 21:15 Temperature Pulse Rate 51 L 50 L 52 L Respiratory 9 L 16 16 Rate Blood Pressure 97/59 106/63 96/61 Blood Pressure [Right] O2 Sat by Pulse 98 98 98 Oximetry 10/30/19 10/30/19 10/30/19 22:16 22:30 22:46 Temperature Pulse Rate 48 L 49 L 62 Respiratory 10 L 19 16 Rate Blood Pressure 108/59 107/57 114/57 Blood Pressure [Right] O2 Sat by Pulse 98 99 96 Oximetry 10/30/19 10/30/19 10/30/19 23:00 23:30 23:46 Temperature Pulse Rate 53 L 53 L 54 L Respiratory 17 19 18 Rate Blood Pressure 114/57 98/56 94/61 Blood Pressure [Right] O2 Sat by Pulse 97 98 94 Oximetry 10/31/19 10/31/19 10/31/19 00:00 00:15 00:30 Temperature Pulse Rate 50 L 51 L 51 L Respiratory 22 23 22 Rate Blood Pressure 93/49 90/52 89/53 Blood Pressure [Right] O2 Sat by Pulse 97 98 97 Oximetry 10/31/19 10/31/19 10/31/19 00:45 01:15 01:16 Temperature 98.0 F Pulse Rate 50 L 54 L 55 L Respiratory 23 12 18 Rate Blood Pressure 94/53 90/42 Blood Pressure 104/58 [Right] O2 Sat by Pulse 96 99 100 Oximetry 10/31/19 10/31/19 10/31/19 01:45 02:00 02:15 Temperature Pulse Rate 53 L 56 L 60 Respiratory 13 13 22 Rate Blood Pressure 108/62 108/62 105/53 Blood Pressure [Right] O2 Sat by Pulse 100 99 100 Oximetry 10/31/19 10/31/19 10/31/19 02:30 02:45 03:00 Temperature Pulse Rate 63 62 60 Respiratory 11 L 22 21 Rate Blood Pressure 111/50 105/49 104/45 Blood Pressure [Right] O2 Sat by Pulse 100 100 98 Oximetry Lab Results 10/30/19 10/30/19 10/30/19 Range/Units 21:03 21:03 21:03 WBC 7.4 (4.5-11.0) K/mm3 RBC 4.22 (3.65-5.03) M/mm3 Hgb 13.7 (11.8-15.2) gm/dl Hct 38.4 (35.5-45.6) % MCV 91 (84-94) fl MCH 33 H (28-32) pg MCHC 36 H (32-34) % RDW 13.9 (13.2-15.2) % Plt Count 197 (140-440) K/mm3 Lymph % (Auto) 21.7 (13.4-35.0) % Daniels % (Auto) 7.3 (0.0-7.3) % Eos % (Auto) 1.6 (0.0-4.3) % Baso % (Auto) 0.4 (0.0-1.8) % Lymph # 1.6 (1.2-5.4) K/mm3 Daniels # 0.5 (0.0-0.8) K/mm3 Eos # 0.1 (0.0-0.4) K/mm3 Baso # 0.0 (0.0-0.1) K/mm3 Seg Neutrophils % 69.0 (40.0-70.0) % Seg Neutrophils # 5.1 (1.8-7.7) K/mm3 PT (12.2-14.9) Sec. INR (0.87-1.13) APTT (24.2-36.6) Sec. D-Dimer (0-234) ng/mlDDU Sodium 140 (137-145) mmol/L Potassium 3.9 (3.6-5.0) mmol/L Chloride 101.3 (98-107) mmol/L Carbon Dioxide 24 (22-30) mmol/L Anion Gap 19 mmol/L BUN 13 (9-20) mg/dL Creatinine 1.3 (0.8-1.5) mg/dL Estimated GFR 55 ml/min BUN/Creatinine Ratio 10 % Glucose 140 H (75-100) mg/dL Lactic Acid (0.7-2.0) mmol/L Calcium 9.5 (8.4-10.2) mg/dL Magnesium (1.7-2.3) mg/dL Total Bilirubin 0.30 (0.1-1.2) mg/dL AST 12 (5-40) units/L ALT 19 (7-56) units/L Alkaline Phosphatase 51 (35-129) units/L Total Creatine Kinase (55-170) units/L Troponin T < 0.010 (0.00-0.029) ng/mL Total Protein 6.7 (6.3-8.2) g/dL Albumin 4.1 (3.9-5) g/dL Albumin/Globulin Ratio 1.6 % TSH 7.300 H (0.270-4.200) mlU/mL Free T4 (0.76-1.46) ng/dL Urine Color (Yellow) Urine Turbidity (Clear) Urine pH (5.0-7.0) Ur Specific [place] (1.003-1.030) Urine Protein (Negative) mg/dL Urine Glucose (UA) (Negative) mg/dL Urine Ketones (Negative) mg/dL Urine Blood (Negative) Urine Nitrite (Negative) Urine Bilirubin (Negative) Urine Urobilinogen (<2.0) mg/dL Ur Leukocyte Esterase (Negative) Urine WBC (Auto) (0.0-6.0) /HPF Urine RBC (Auto) (0.0-6.0) /HPF Salicylates (2.8-20.0) mg/dL Acetaminophen (10.0-30.0) ug/mL Plasma/Serum Alcohol (0-0.07) % 10/30/19 10/30/19 10/31/19 Range/Units 21:03 Unknown 01:23 WBC (4.5-11.0) K/mm3 RBC (3.65-5.03) M/mm3 Hgb (11.8-15.2) gm/dl Hct (35.5-45.6) % MCV (84-94) fl MCH (28-32) pg MCHC (32-34) % RDW (13.2-15.2) % Plt Count (140-440) K/mm3 Lymph % (Auto) (13.4-35.0) % Daniels % (Auto) (0.0-7.3) % Eos % (Auto) (0.0-4.3) % Baso % (Auto) (0.0-1.8) % Lymph # (1.2-5.4) K/mm3 Daniels # (0.0-0.8) K/mm3 Eos # (0.0-0.4) K/mm3 Baso # (0.0-0.1) K/mm3 Seg Neutrophils % (40.0-70.0) % Seg Neutrophils # (1.8-7.7) K/mm3 PT (12.2-14.9) Sec. INR (0.87-1.13) APTT (24.2-36.6) Sec. D-Dimer (0-234) ng/mlDDU Sodium (137-145) mmol/L Potassium (3.6-5.0) mmol/L Chloride (98-107) mmol/L Carbon Dioxide (22-30) mmol/L Anion Gap mmol/L BUN (9-20) mg/dL Creatinine (0.8-1.5) mg/dL Estimated GFR ml/min BUN/Creatinine Ratio % Glucose (75-100) mg/dL Lactic Acid 1.00 (0.7-2.0) mmol/L Calcium (8.4-10.2) mg/dL Magnesium (1.7-2.3) mg/dL Total Bilirubin (0.1-1.2) mg/dL AST (5-40) units/L ALT (7-56) units/L Alkaline Phosphatase (35-129) units/L Total Creatine Kinase (55-170) units/L Troponin T (0.00-0.029) ng/mL Total Protein (6.3-8.2) g/dL Albumin (3.9-5) g/dL Albumin/Globulin Ratio % TSH (0.270-4.200) mlU/mL Free T4 1.25 (0.76-1.46) ng/dL Urine Color Yellow (Yellow) Urine Turbidity Clear (Clear) Urine pH 7.0 (5.0-7.0) Ur Specific [place] 1.008 (1.003-1.030) Urine Protein <15 mg/dl (Negative) mg/dL Urine Glucose (UA) Neg (Negative) mg/dL Urine Ketones Neg (Negative) mg/dL Urine Blood Neg (Negative) Urine Nitrite Neg (Negative) Urine Bilirubin Neg (Negative) Urine Urobilinogen < 2.0 (<2.0) mg/dL Ur Leukocyte Esterase Neg (Negative) Urine WBC (Auto) < 1.0 (0.0-6.0) /HPF Urine RBC (Auto) 1.0 (0.0-6.0) /HPF Salicylates (2.8-20.0) mg/dL Acetaminophen (10.0-30.0) ug/mL Plasma/Serum Alcohol (0-0.07) % 10/31/19 10/31/19 10/31/19 Range/Units 01:23 01:23 02:00 WBC (4.5-11.0) K/mm3 RBC (3.65-5.03) M/mm3 Hgb (11.8-15.2) gm/dl Hct (35.5-45.6) % MCV (84-94) fl MCH (28-32) pg MCHC (32-34) % RDW (13.2-15.2) % Plt Count (140-440) K/mm3 Lymph % (Auto) (13.4-35.0) % Daniels % (Auto) (0.0-7.3) % Eos % (Auto) (0.0-4.3) % Baso % (Auto) (0.0-1.8) % Lymph # (1.2-5.4) K/mm3 Daniels # (0.0-0.8) K/mm3 Eos # (0.0-0.4) K/mm3 Baso # (0.0-0.1) K/mm3 Seg Neutrophils % (40.0-70.0) % Seg Neutrophils # (1.8-7.7) K/mm3 PT 13.8 (12.2-14.9) Sec. INR 1.05 (0.87-1.13) APTT 27.5 (24.2-36.6) Sec. D-Dimer 282.25 H (0-234) ng/mlDDU Sodium (137-145) mmol/L Potassium (3.6-5.0) mmol/L Chloride (98-107) mmol/L Carbon Dioxide (22-30) mmol/L Anion Gap mmol/L BUN (9-20) mg/dL Creatinine (0.8-1.5) mg/dL Estimated GFR ml/min BUN/Creatinine Ratio % Glucose (75-100) mg/dL Lactic Acid (0.7-2.0) mmol/L Calcium (8.4-10.2) mg/dL Magnesium 2.10 (1.7-2.3) mg/dL Total Bilirubin (0.1-1.2) mg/dL AST (5-40) units/L ALT (7-56) units/L Alkaline Phosphatase (35-129) units/L Total Creatine Kinase 47 L (55-170) units/L Troponin T < 0.010 (0.00-0.029) ng/mL Total Protein (6.3-8.2) g/dL Albumin (3.9-5) g/dL Albumin/Globulin Ratio % TSH (0.270-4.200) mlU/mL Free T4 (0.76-1.46) ng/dL Urine Color (Yellow) Urine Turbidity (Clear) Urine pH (5.0-7.0) Ur Specific [place] (1.003-1.030) Urine Protein (Negative) mg/dL Urine Glucose (UA) (Negative) mg/dL Urine Ketones (Negative) mg/dL Urine Blood (Negative) Urine Nitrite (Negative) Urine Bilirubin (Negative) Urine Urobilinogen (<2.0) mg/dL Ur Leukocyte Esterase (Negative) Urine WBC (Auto) (0.0-6.0) /HPF Urine RBC (Auto) (0.0-6.0) /HPF Salicylates < 0.3 L (2.8-20.0) mg/dL Acetaminophen (10.0-30.0) ug/mL Plasma/Serum Alcohol (0-0.07) % 10/31/19 10/31/19 Range/Units 02:00 02:00 WBC (4.5-11.0) K/mm3 RBC (3.65-5.03) M/mm3 Hgb (11.8-15.2) gm/dl Hct (35.5-45.6) % MCV (84-94) fl MCH (28-32) pg MCHC (32-34) % RDW (13.2-15.2) % Plt Count (140-440) K/mm3 Lymph % (Auto) (13.4-35.0) % Daniels % (Auto) (0.0-7.3) % Eos % (Auto) (0.0-4.3) % Baso % (Auto) (0.0-1.8) % Lymph # (1.2-5.4) K/mm3 Daniels # (0.0-0.8) K/mm3 Eos # (0.0-0.4) K/mm3 Baso # (0.0-0.1) K/mm3 Seg Neutrophils % (40.0-70.0) % Seg Neutrophils # (1.8-7.7) K/mm3 PT (12.2-14.9) Sec. INR (0.87-1.13) APTT (24.2-36.6) Sec. D-Dimer (0-234) ng/mlDDU Sodium (137-145) mmol/L Potassium (3.6-5.0) mmol/L Chloride (98-107) mmol/L Carbon Dioxide (22-30) mmol/L Anion Gap mmol/L BUN (9-20) mg/dL Creatinine (0.8-1.5) mg/dL Estimated GFR ml/min BUN/Creatinine Ratio % Glucose (75-100) mg/dL Lactic Acid (0.7-2.0) mmol/L Calcium (8.4-10.2) mg/dL Magnesium (1.7-2.3) mg/dL Total Bilirubin (0.1-1.2) mg/dL AST (5-40) units/L ALT (7-56) units/L Alkaline Phosphatase (35-129) units/L Total Creatine Kinase (55-170) units/L Troponin T (0.00-0.029) ng/mL Total Protein (6.3-8.2) g/dL Albumin (3.9-5) g/dL Albumin/Globulin Ratio % TSH (0.270-4.200) mlU/mL Free T4 (0.76-1.46) ng/dL Urine Color (Yellow) Urine Turbidity (Clear) Urine pH (5.0-7.0) Ur Specific [place] (1.003-1.030) Urine Protein (Negative) mg/dL Urine Glucose (UA) (Negative) mg/dL Urine Ketones (Negative) mg/dL Urine Blood (Negative) Urine Nitrite (Negative) Urine Bilirubin (Negative) Urine Urobilinogen (<2.0) mg/dL Ur Leukocyte Esterase (Negative) Urine WBC (Auto) (0.0-6.0) /HPF Urine RBC (Auto) (0.0-6.0) /HPF Salicylates (2.8-20.0) mg/dL Acetaminophen < 5.0 L (10.0-30.0) ug/mL Plasma/Serum Alcohol < 0.01 (0-0.07) % - EKG Data -: EKG Interpreted by Sd EKG shows normal: sinus rhythm Rate: bradycardia - Radiology Data Radiology results: report reviewed, image reviewed <DAVID PRUITT - Last Filed: 10/31/19 05:14> - Lab Data Result diagrams: 10/30/19 21:03 10/30/19 21:03 - EKG Data -: EKG Interpreted by Sd EKG shows normal: sinus rhythm, axis, intervals (prolonged MS interval), QRS complexes (right bundle-branch block), ST-T waves Rate: bradycardia (50 bpm) - EKG Data When compared to previous EKG there are: no significant change Interpretation: unchanged when compared t (07/2019 except for current EKG has prolonged MS interval) - Radiology Data Radiology results: report reviewed CT HEAD WITHOUT CONTRAST INDICATION / CLINICAL INFORMATION: Syncope. TECHNIQUE: All CT scans at this location are performed using CT dose reduction for ALARA by means of automated exposure control. COMPARISON: Head CT dated 05/26/2019 FINDINGS: HEMORRHAGE: No evidence of intracranial hemorrhage or extra-axial fluid collection. EXTRA-AXIAL SPACES: Cortical sulci and sylvian fissures are enlarged reflecting a degree of parenchymal volume loss which is within normal limits for the patient's age. Basilar cisterns have an unremarkable appearance. VENTRICULAR SYSTEM: The third and lateral ventricles are enlarged reflecting resonance of age related parenchymal volume loss. CEREBRAL PARENCHYMA: Mild periventricular and deep white matter lucency is observed. This is probably secondary to microvascular ischemic change. There is no indication of recent infarction. No areas of encephalomalacia are identified. MIDLINE SHIFT OR HERNIATION: There is no mass effect. CEREBELLUM / BRAINSTEM: Brainstem and cerebellum have an unremarkable appearance. INTRACRANIAL VESSELS:Calcified atherosclerotic plaque is present along the course of the cavernous segments of both internal carotid arteries. Similar findings are seen at the distal vertebral arteries. ORBITS: visualized portions of the orbits have an unremarkable appearance. SOFT TISSUES of HEAD: No significant abnormality. CALVARIUM: Evaluation of bone windows reveals no abnormalities. PARANASAL SINUSES / MASTOID AIR CELLS: Paranasal sinuses are free from inflammatory mucosal disease. Mastoid air cells are normally pneumatized. IMPRESSION: 1. Mild age-related involutional changes of parenchymal volume loss and microvascular ischemia. 2. No acute intracranial abnormality. No interval change. - Medical Decision Making This patient initially presented with complaint of a syncopal episode prior to presentation. CT of the head did not show any bleed, shift, mass, ischemia, or any other acute process. EKG did not show any morphology consistent with ST elevation [place]. Labs have thus far been unremarkable. Patient was signed out to my colleague to follow the rest of the lab results including his thyroid function. In reviewing the rest of the patient's ED course it appears that he started having some significant bradycardic episodes and complaining of some chest pain. A CT of the abdomen and pelvis, as well as a CT angiography of the chest were completed, that do not appear to have shown any acute abnormalities. The patient was then admitted to the hospital for further evaluation. - Differential Diagnosis dysrhythmia, vasovagal, [place], CVA, TIA <MELODY GUPTA S - Last Filed: 10/31/19 22:05> Critical care attestation.: If time is entered above; I have spent that time in minutes in the direct care of this critically ill patient, excluding procedure time. <DAVID PRUITT - Last Filed: 10/31/19 05:14> Critical Care Time: No Critical care attestation.: If time is entered above; I have spent that time in minutes in the direct care of this critically ill patient, excluding procedure time. <MELODY GUPTA - Last Filed: 10/31/19 22:05> ED Disposition Is pt being admited?: Yes <DAVID PRUITT - Last Filed: 10/31/19 05:14> Is pt being admited?: Yes <MELODY GUPTA - Last Filed: 10/31/19 22:05> Clinical Impression: 1st degree AV block, Bradycardia, Debility, Hx of drug overdose Syncope Qualifiers: Syncope type: unspecified Qualified Code(s): R55 - Syncope and collapse Chest pain Qualifiers: Chest pain type: unspecified Qualified Code(s): R07.9 - Chest pain, unspecified Abdominal pain Qualifiers: Abdominal location: unspecified location Qualified Code(s): R10.9 - Unspecified abdominal pain Disposition: [id number] OP ADMIT IP TO THIS HOSP Condition: Fair
[2019-10-31] MEDS ORDERED: SODIUM CHLORIDE 0.9% 1000 ML 2,000 ML IV ONE (01:09)
[2019-10-31 02:07] LABS: INR 1.05 (0.87-1.13)
[2019-10-31 02:08] LABS: Partial Thromboplastin Time 27.5 Sec. (24.2-36.6)
--- NOTE | 2019-10-31 05:00 | Cat Scan Report ---
CT abdomen pelvis w con INDICATION: Abdominal pain, Bradycardia, Hypotension. TECHNIQUE: All CT scans at this location are performed using the following dose modulation technique: Automated exposure control. Helical slices were obtained through the abdomen and pelvis following the administr ation of 100 cc of Omnipaque 350 COMPARISON: Abdominal pain FINDINGS: The liver, spleen, pancreas, adrenal glands, and kidneys show no acute abnormalities. The aorta is no rmal in diameter. There is a retroaortic left renal vein which is an anatomic variant. There is no ad enopathy. There is no obstruction, inflammation, or free air. There are no abnormal fluid collections. The appe ndix is unremarkable Pelvis: There is no obstruction or inflammation. There are no abnormal fluid collections. On review of bone windows, no acute osseous abnormalities are seen. IMPRESSION: 1. There is no obstruction, inflammation, or free air. There are no abnormal fluid collections. No ac [place] abnormality is seen in the abdomen and pelvis. Signer Name: Enrike Bateman MD Signed: 10/31/2019 4:56 AM Workstation Name: [id number]
--- NOTE | 2019-10-31 05:04 | Cat Scan Report ---
CTA of the chest with 3D Reconstruction Indication: ,P.E. PROTOCOL!!! Chest pain, Bradycardia, Hypotension Technique: TECHNIQUE: Axial CT images were obtained through the chest after injection of 100 cc of Omnipaque 350 IV contrast. 3 plane MIP reconstructions were produced. All CT scans at this location are performed using CT dose reduction for ALARA by means of automated exposure control. COMPARISON: None Automatic exposure control was utilized in an attempt to reduce radiation dose. Findings: Pulmonary arteries: The main pulmonary artery and right and left pulmonary artery branches fill satis factorily with contrast. No pulmonary embolus is seen. Lungs: There is minimal dependent left basilar atelectasis Mediastinum: Heart size is normal. No adenopathy is seen. Aorta: Normal in diameter. No dissection seen within limits of this exam. Impression: No pulmonary embolus is seen Signer Name: Enrike Bateman MD Signed: 10/31/2019 4:59 AM Workstation Name: [id number]
[2019-10-31] MEDS ORDERED: ACETAMINOPHEN 325 MG TAB PO PRN (05:30)
[2019-10-31] MEDS ORDERED: ONDANSETRON 4 MG/2 ML INJ IV PRN (05:30)
[2019-10-31] MEDS ORDERED: SODIUM CHLORIDE 0.9% 1000 ML 1,000 ML ONE ×2 (05:47→10:28)
[2019-10-31] MEDS ORDERED: SODIUM CHLORIDE 0.9% 500 ML 500 ML ONE (05:48)
--- NOTE | 2019-10-31 05:51 | History and Physical Report ---
<REYNACARL Erwin - Last Filed: 10/31/19 05:53> History of Present Illness Date of examination: 10/31/19 Date of admission: 10/31/2019 Chief complaint: syncope History of present illness: 68-year-old male with history of hypertension, seizure, bipolar, anxiety, HLD, tremors, EtOH abuse, and angina who presents to [facility] ED via EMS after witnessed syncopal episode at personal-long-term. Of note pt is a poor historian and unable to provide detailed history. Patient states he was attempting to go up the stairs to use the restroom but was unable to make it. Subsequently he saw his self and shortly after became lightheaded and passed out. Patient also states that he had emesis x1 but is unsure whether this happened before or after the syncopal episode. EMS was called and patient was transported to our facility for further evaluation. Upon arrival to our facility patient was found to be profoundly hypertensive and complained of abdominal pain. CT abdomen/pelvis was negative. Patient received fluid bolus and was responsive but shortly after became hypotensive again. He was given another bolus and will be maintained on maintenance fluids. Will admit as OBS for further evaluation. Past History Past Medical History: hypertension, hyperlipidemia, seizures, other (Bipolar, anxiety, EtOH abuse, angina, tremors) Past Surgical History: Other (Left leg with cast) Social history: other (Resident of personal long-term) Family history: no significant family history Medications and Allergies Allergies Allergy/AdvReac Type Severity Reaction Status Date / Time No Known Allergies Allergy Verified 08/01/14 07:29 Home Medications Medication Instructions Recorded Confirmed Last Taken Type Propranolol [Inderal] 10 mg PO DAILY 10/31/19 10/31/19 Unknown History Ramelteon 8 mg PO DAILY 10/31/19 10/31/19 Unknown History Trazodone HCl [traZODone] 150 mg PO DAILY 10/31/19 10/31/19 Unknown History clonazePAM [Klonopin] 1 mg PO DAILY 10/31/19 10/31/19 Unknown History Review of Systems All systems: negative Cardiovascular: other (Hypotensive) Gastrointestinal: abdominal pain (Mild) Neurological: other (Syncope) Exam - Physical Exam Narrative exam: Physical exam General appearance: Present: No acute distress, alert and oriented 2, adult male - EENT Eyes: Present: PERRL, EOM intact ENT: hearing intact, missing teeth - Neck Neck: Present: supple, normal ROM - Respiratory Respiratory effort: Non-labored Respiratory: Clear throughout - Cardiovascular Heart rate: 60 (bpm) Rhythm: Sinus rhythm Heart Sounds: Present: S1 & S2. Absent: rub, click - Extremities Extremities: no ischemia, pulses intact, - Peripheral Assessment Peripheral Pulses: within normal limits - Abdominal General gastrointestinal: soft, non-tender, normal bowel sounds - Integumentary Integumentary: Present: warm, dry - Musculoskeletal Musculoskeletal: Able to move all extremities -Neurological Neurological: CN II-XII intact - Psychiatric Psychiatric: cooperative - Constitutional Vitals: Temp Pulse Resp BP Pulse Ox 98.0 F 69 18 101/58 99 10/31/19 01:16 10/31/19 05:02 10/31/19 05:02 10/31/19 05:02 10/31/19 03:30 Results - Labs CBC & Chem 7: 10/30/19 21:03 10/30/19 21:03 Labs: Laboratory Last Values WBC 7.4 K/mm3 (4.5-11.0) 10/30/19 21:03 RBC 4.22 M/mm3 (3.65-5.03) 10/30/19 21:03 Hgb 13.7 gm/dl (11.8-15.2) 10/30/19 21:03 Hct 38.4 % (35.5-45.6) 10/30/19 21:03 MCV 91 fl (84-94) 10/30/19 21:03 MCH 33 pg (28-32) H 10/30/19 21:03 MCHC 36 % (32-34) H 10/30/19 21:03 RDW 13.9 % (13.2-15.2) 10/30/19 21:03 Plt Count 197 K/mm3 (140-440) 10/30/19 21:03 Lymph % (Auto) 21.7 % (13.4-35.0) 10/30/19 21:03 [place] % (Auto) 7.3 % (0.0-7.3) 10/30/19 21:03 Eos % (Auto) 1.6 % (0.0-4.3) 10/30/19 21:03 Baso % (Auto) 0.4 % (0.0-1.8) 10/30/19 21:03 Lymph # 1.6 K/mm3 (1.2-5.4) 10/30/19 21:03 [place] # 0.5 K/mm3 (0.0-0.8) 10/30/19 21:03 Eos # 0.1 K/mm3 (0.0-0.4) 10/30/19 21:03 Baso # 0.0 K/mm3 (0.0-0.1) 10/30/19 21:03 Seg Neutrophils % 69.0 % (40.0-70.0) 10/30/19 21:03 Seg Neutrophils # 5.1 K/mm3 (1.8-7.7) 10/30/19 21:03 PT 13.8 Sec. (12.2-14.9) 10/31/19 01:23 INR 1.05 (0.87-1.13) 10/31/19 01:23 APTT 27.5 Sec. (24.2-36.6) 10/31/19 01:23 D-Dimer 282.25 ng/mlDDU (0-234) H 10/31/19 01:23 Sodium 140 mmol/L (137-145) 10/30/19 21:03 Potassium 3.9 mmol/L (3.6-5.0) 10/30/19 21:03 Chloride 101.3 mmol/L (98-107) 10/30/19 21:03 Carbon Dioxide 24 mmol/L (22-30) 10/30/19 21:03 Anion Gap 19 mmol/L 10/30/19 21:03 BUN 13 mg/dL (9-20) 10/30/19 21:03 Creatinine 1.3 mg/dL (0.8-1.5) 10/30/19 21:03 Estimated GFR 55 ml/min 10/30/19 21:03 BUN/Creatinine Ratio 10 % 10/30/19 21:03 Glucose 140 mg/dL (75-100) H 10/30/19 21:03 Lactic Acid 1.00 mmol/L (0.7-2.0) 10/31/19 01:23 Calcium 9.5 mg/dL (8.4-10.2) 10/30/19 21:03 Magnesium 2.10 mg/dL (1.7-2.3) 10/31/19 01: Total Bilirubin 0.30 mg/dL (0.1-1.2) 10/30/19 21:03 AST 12 units/L (5-40) 10/30/19 21:03 ALT 19 units/L (7-56) 10/30/19 21:03 Alkaline Phosphatase 51 units/L (35-129) 10/30/19 21:03 Total Creatine Kinase 47 units/L (55-170) L 10/31/19 01: Troponin T < 0.010 ng/mL (0.00-0.029) 10/31/19 01: Total Protein 6.7 g/dL (6.3-8.2) 10/30/19 21:03 Albumin 4.1 g/dL (3.9-5) 10/30/19 21:03 Albumin/Globulin Ratio 1.6 % 10/30/19 21:03 TSH 7.300 mlU/mL (0.270-4.200) H 10/30/19 21:03 Free T4 1.25 ng/dL (0.76-1.46) 10/30/19 21:03 Urine Color Yellow (Yellow) 10/30/19 Unknown Urine Turbidity Clear (Clear) 10/30/19 Unknown Urine pH 7.0 (5.0-7.0) 10/30/19 Unknown Ur Specific [place] 1.008 (1.003-1.030) 10/30/19 Unknown Urine Protein <15 mg/dl mg/dL (Negative) 10/30/19 Unknown Urine Glucose (UA) Neg mg/dL (Negative) 10/30/19 Unknown Urine Ketones Neg mg/dL (Negative) 10/30/19 Unknown Urine Blood Neg (Negative) 10/30/19 Unknown Urine Nitrite Neg (Negative) 10/30/19 Unknown Urine Bilirubin Neg (Negative) 10/30/19 Unknown Urine Urobilinogen < 2.0 mg/dL (<2.0) 10/30/19 Unknown Ur Leukocyte Esterase Neg (Negative) 10/30/19 Unknown Urine WBC (Auto) < 1.0 /HPF (0.0-6.0) 10/30/19 Unknown Urine RBC (Auto) 1.0 /HPF (0.0-6.0) 10/30/19 Unknown Salicylates < 0.3 mg/dL (2.8-20.0) L 10/31/19 02:00 Acetaminophen < 5.0 ug/mL (10.0-30.0) L 10/31/19 02:00 Plasma/Serum Alcohol < 0.01 % (0-0.07) 10/31/19 02:00 - Imaging and Cardiology Imaging and Cardiology: CT angio Chest: Impression: No pulmonary embolus is seen CT Abdomen/ Pelvis: FINDINGS: The liver, spleen, pancreas, adrenal glands, and kidneys show no acute abnormalities. The aorta is normal in diameter. There is a retroaortic left renal vein which is an anatomic variant. There is no adenopathy. There is no obstruction, inflammation, or free air. There are no abnormal fluid collections. The appendix is unremarkable Pelvis: There is no obstruction or inflammation. There are no abnormal fluid collections. On review of bone windows, no acute osseous abnormalities are seen. IMPRESSION: 1. There is no obstruction, inflammation, or free air. There are no abnormal fluid collections. No acute abnormality is seen in the abdomen and pelvis. Assessment and Plan Assessment and plan: 68-year-old male with history of hypertension, seizure, bipolar, anxiety, HLD, tremors, EtOH abuse, and angina who presents to [facility] ED via EMS after witnessed syncopal episode at personal-long-term. Syncope -Witnessed episode x1 -Neurochecks -Echo pending -Continue supportive care Hypotension -Initial BP 89/53 -Responsive to fluid resuscitation -On maintenance fluids -History of hypertension -Continue to monitor BP -Hold all antihypertensive meds for now -?? Possible of extra dose of Inderal ingestion -Poison control contacted and recommends monitoring patient R/o PE -Elevated d-dimer 282.25 -CT angios chest negative for PE Elevated TSH -at 7.3 -Free T4 within normal limits -Patient unsure whether he has history of hypothyroidism -Oncoming shift to follow-up on elevated TSH DVT PPX -On Heparin Advance Directives: No VTE prophylaxis?: Chemical Plan of care discussed with patient/family: Yes <LEIGH PRECIADO - Last Filed: 10/31/19 06:15> Medications and Allergies Active Meds: Active Medications Acetaminophen (Tylenol) 650 mg PO Q4H PRN PRN Reason: Pain MILD(1-3)/Fever >100.5/WINSLOW Docusate Sodium (Colace) 100 mg PO BID [place] Heparin Sodium (Porcine) (Heparin) 5,000 unit SUB-Q Q12HR [place] Sodium Chloride (Nacl 0.9% 1000 Ml) 1,000 mls @ 100 mls/hr IV DIRECT [place] Sodium Chloride (Nacl 0.9% 500 Ml) 500 mls @ 999 mls/hr IV ONCE ONE Stop: 10/31/19 06:23 Ondansetron HCl (Zofran) 4 mg IV Q8H PRN PRN Reason: Nausea And Vomiting Sodium Chloride (Sodium Chloride Flush Syringe 10 Ml) 10 ml IV BID [place] Sodium Chloride (Sodium Chloride Flush Syringe 10 Ml) 10 ml IV PRN PRN PRN Reason: LINE FLUSH Exam - Constitutional Vitals: Temp Pulse Resp BP Pulse Ox 98.0 F 69 18 101/58 99 10/31/19 01:16 10/31/19 05:02 10/31/19 05:02 10/31/19 05:02 10/31/19 03:30 Results - Labs CBC & Chem 7: 10/30/19 21:03 10/30/19 21:03 Labs: Laboratory Last Values WBC 7.4 K/mm3 (4.5-11.0) 10/30/19 21:03 RBC 4.22 M/mm3 (3.65-5.03) 10/30/19 21:03 Hgb 13.7 gm/dl (11.8-15.2) 10/30/19 21:03 Hct 38.4 % (35.5-45.6) 10/30/19 21:03 MCV 91 fl (84-94) 10/30/19 21:03 MCH 33 pg (28-32) H 10/30/19 21:03 MCHC 36 % (32-34) H 10/30/19 21:03 RDW 13.9 % (13.2-15.2) 10/30/19 21:03 Plt Count 197 K/mm3 (140-440) 10/30/19 21:03 Lymph % (Auto) 21.7 % (13.4-35.0) 10/30/19 21:03 [place] % (Auto) 7.3 % (0.0-7.3) 10/30/19 21:03 Eos % (Auto) 1.6 % (0.0-4.3) 10/30/19 21:03 Baso % (Auto) 0.4 % (0.0-1.8) 10/30/19 21:03 Lymph # 1.6 K/mm3 (1.2-5.4) 10/30/19 21:03 [place] # 0.5 K/mm3 (0.0-0.8) 10/30/19 21:03 Eos # 0.1 K/mm3 (0.0-0.4) 10/30/19 21:03 Baso # 0.0 K/mm3 (0.0-0.1) 10/30/19 21:03 Seg Neutrophils % 69.0 % (40.0-70.0) 10/30/19 21:03 Seg Neutrophils # 5.1 K/mm3 (1.8-7.7) 10/30/19 21:03 PT 13.8 Sec. (12.2-14.9) 10/31/19 01: INR 1.05 (0.87-1.13) 10/31/19 01:23 APTT 27.5 Sec. (24.2-36.6) 10/31/19 01:23 D-Dimer 282.25 ng/mlDDU (0-234) H 10/31/19 01:23 Sodium 140 mmol/L (137-145) 10/30/19 21:03 Potassium 3.9 mmol/L (3.6-5.0) 10/30/19 21:03 Chloride 101.3 mmol/L (98-107) 10/30/19 21:03 Carbon Dioxide 24 mmol/L (22-30) 10/30/19 21:03 Anion Gap 19 mmol/L 10/30/19 21:03 BUN 13 mg/dL (9-20) 10/30/19 21:03 Creatinine 1.3 mg/dL (0.8-1.5) 10/30/19 21:03 Estimated GFR 55 ml/min 10/30/19 21:03 BUN/Creatinine Ratio 10 % 10/30/19 21:03 Glucose 140 mg/dL (75-100) H 10/30/19 21:03 Lactic Acid 1.00 mmol/L (0.7-2.0) 10/31/19 01:23 Calcium 9.5 mg/dL (8.4-10.2) 10/30/19 21:03 Magnesium 2.10 mg/dL (1.7-2.3) 10/31/19 01:23 Total Bilirubin 0.30 mg/dL (0.1-1.2) 10/30/19 21:03 AST 12 units/L (5-40) 10/30/19 21:03 ALT 19 units/L (7-56) 10/30/19 21:03 Alkaline Phosphatase 51 units/L (35-129) 10/30/19 21:03 Total Creatine Kinase 47 units/L (55-170) L 10/31/19 01: Troponin T < 0.010 ng/mL (0.00-0.029) 10/31/19 01: Total Protein 6.7 g/dL (6.3-8.2) 10/30/19 21:03 Albumin 4.1 g/dL (3.9-5) 10/30/19 21:03 Albumin/Globulin Ratio 1.6 % 10/30/19 21:03 TSH 7.300 mlU/mL (0.270-4.200) H 10/30/19 21:03 Free T4 1.25 ng/dL (0.76-1.46) 10/30/19 21:03 Urine Color Yellow (Yellow) 10/30/19 Unknown Urine Turbidity Clear (Clear) 10/30/19 Unknown Urine pH 7.0 (5.0-7.0) 10/30/19 Unknown Ur Specific [place] 1.008 (1.003-1.030) 10/30/19 Unknown Urine Protein <15 mg/dl mg/dL (Negative) 10/30/19 Unknown Urine Glucose (UA) Neg mg/dL (Negative) 10/30/19 Unknown Urine Ketones Neg mg/dL (Negative) 10/30/19 Unknown Urine Blood Neg (Negative) 10/30/19 Unknown Urine Nitrite Neg (Negative) 10/30/19 Unknown Urine Bilirubin Neg (Negative) 10/30/19 Unknown Urine Urobilinogen < 2.0 mg/dL (<2.0) 10/30/19 Unknown Ur Leukocyte Esterase Neg (Negative) 10/30/19 Unknown Urine WBC (Auto) < 1.0 /HPF (0.0-6.0) 10/30/19 Unknown Urine RBC (Auto) 1.0 /HPF (0.0-6.0) 10/30/19 Unknown Salicylates < 0.3 mg/dL (2.8-20.0) L 10/31/19 02:00 Acetaminophen < 5.0 ug/mL (10.0-30.0) L 10/31/19 02:00 Plasma/Serum Alcohol < 0.01 % (0-0.07) 10/31/19 02:00 Assessment and Plan Assessment and plan: Patient seen and examined, discussed with nurse practitioner. Took extra dose of his Inderal. Agree with plan as stated above, in addition check carotid Doppler, orthostatics
[2019-10-31] MEDS ORDERED: SODIUM CHLORIDE 0.9% 500 ML 500 ML IV ONE (05:53)
[2019-10-31] MEDS ORDERED: SODIUM CHLORIDE 0.9% 1000 ML 1,000 ML IV SCH (06:00)
[2019-10-31 07:19] LABS: Creatine Kinase MB < 1.0 ng/mL (0.0-4.0)
--- NOTE | 2019-10-31 11:10 | Vascular Lab Report ---
Bilateral Carotid Doppler Ultrasound INDICATION : syncope TECHNIQUE: Grayscale and color Doppler imaging performed through the neck. COMPARISON: None FINDINGS: Right: There is mild atherosclerotic disease in the carotid bulb. Peak systolic velocity in the CCA is 93 cm/s with end-diastolic velocity of 20 cm/s. Peak systolic velocity in the proximal ICA is 98 cm/s with end-diastolic velocity of 15 cm/s. ICA to CCA ratio is less than 2. There is antegrade marielena w in the ECA and the vertebral artery. Left: There is no significant atherosclerotic disease. Peak systolic velocity in the CCA is 99 cm/s w ith end-diastolic velocity of 27 cm/s. Peak systolic velocity in the proximal ICA is 88 cm/s with end -diastolic velocity of 33 cm/s. ICA to CCA ratio is less than 2. There is antegrade flow in the ECA and the vertebral artery. IMPRESSION: No hemodynamically significant stenosis by NASCET criteria. Signer Name: Elvin Pitts MD Signed: 10/31/2019 11:05 AM Workstation Name: [id number]
[2019-10-31] MEDS: DOCUSATE SODIUM 100 MG CAP PO SCH ×3 (12:51→22:11)
[2019-10-31] MEDS: HEPARIN 5,000 UNIT/1 ML VIAL SUB-Q SCH ×2 (12:57→21:37)
[2019-10-31 14:31] LABS: Creatine Kinase MB 1.2 ng/mL (0.0-4.0)
[2019-10-31] MEDS: traZODone 50 MG TAB PO SCH (14:49)
[2019-10-31] MEDS: clonazePAM 0.5 MG TAB PO SCH (14:49)
--- NOTE | 2019-10-31 16:05 | XRay Report ---
LEFT ANKLE. INDICATION / CLINICAL INFORMATION: History of fall, pain. COMPARISON: 07/16/2019, 08/01/2019. FINDINGS: 3 views of the ankle labeled left were obtained. Evidence of remote trimalleolar fracture is again no paco with ununited medial and lateral malleolar fragments. No new acute fracture is identified. Extens nate vascular calcifications throughout the surrounding soft tissues. Moderate size superior and plant ar calcaneal spurs. IMPRESSION: Left ankle without new acute osseous injury. No significant change in remote trimalleolar fracture with ununited medial and lateral malleolar frag ments Signer Name: Nino Lyn MD Signed: 10/31/2019 4:00 PM Workstation Name: [id number]
--- NOTE | 2019-10-31 18:02 | Event Note ---
Date: 10/31/19 Patient was admitted with syncope, and elevated D-dimers Patient's echocardiogram abnormal with LV function of 40 to 45%[prelim report by cardiology] Discussed echocardiogram report with , recommended thallium stress test to rule out ischemia. Other syncope work-up CT head without contrast, carotid Doppler within normal limits CTA chest negative for PE, continue fall precautions Patient also complains of ankle swelling and pain, x-ray ankle old changes no acute fracture noted Continue current management Follow stress test tomorrow, if negative and stable patient may be discharged home Plan of care reviewed with the patient and his nurse . Patient also has elevated TSH, hypothyroidism Will add low-dose Synthroid
[2019-11-01 05:30] LABS: Basophils % (Auto) 0.2 % (0.0-1.8); Eosinophils # (Auto) 0.1 K/mm3 (0.0-0.4); Eosinophils % (Auto) 2.9 % (0.0-4.3); Hematocrit 36.5 % (35.5-45.6); Hemoglobin 12.6 gm/dl (11.8-15.2); Lymphocytes # (Auto) 1.7 K/mm3 (1.2-5.4); Lymphocytes % (Auto) 36.8 % (13.4-35.0); Mean Corpuscular HGB Conc 35 % (32-34); Mean Corpuscular Volume 91 fl (84-94); Monocytes # (Auto) 0.4 K/mm3 (0.0-0.8); Monocytes % (Auto) 8.5 % (0.0-7.3); Platelet Count 178 K/mm3 (140-440); Red Cell Distribution Width 13.9 % (13.2-15.2)
[2019-11-01 05:56] LABS: BUN/Creatinine Ratio 8; Blood Urea Nitrogen 8 mg/dL (9-20); Calcium 8.9 mg/dL (8.4-10.2); Hemolysis Index 4
[2019-11-01] MEDS ORDERED: LEVOTHYROXINE 50 MCG TAB PO SCH (06:00)
[2019-11-01] MEDS: DOCUSATE SODIUM 100 MG CAP PO SCH ×2 (09:22→13:31)
[2019-11-01] MEDS: traZODone 50 MG TAB PO SCH ×2 (09:22→13:31)
[2019-11-01] MEDS: HEPARIN 5,000 UNIT/1 ML VIAL SUB-Q SCH (09:23)
[2019-11-01] MEDS: clonazePAM 0.5 MG TAB PO SCH ×2 (09:23→13:30)
[2019-11-01] MEDS: PROPRANOLOL 10 MG TAB PO SCH ×2 (09:23→13:33)
[2019-11-01] MEDS ORDERED: RAMELTEON 8 MG PO SCH (10:00)
[2019-11-01] MEDS ORDERED: REGADENOSON 0.4 MG/5 ML INJ IV ONE (10:23)
[2019-11-01 12:07] VITALS: BP 119/75
--- NOTE | 2019-11-01 16:41 | Discharge Summary ---
Providers - Providers Date of Admission: 10/31/19 05:30 Date of discharge: 11/01/19 Attending physician: PERLA NOLASCO Primary care physician: REDDY YAO MD Hospitalization Condition: Fair Disposition: DC/[place]-70 ANOTHER TYPE [facility] Time spent for discharge: 32 min Core Measure Documentation - Palliative Care Palliative Care/ Comfort Measures: Not Applicable - Core Measures Any of the following diagnoses?: none Exam - Constitutional Vitals: Temp Pulse Resp BP Pulse Ox 98.2 F 68 20 119/75 99 11/01/19 04:02 11/01/19 13:33 11/01/19 10:00 11/01/19 13:33 11/01/19 12:03 General appearance: Present: no acute distress, well-nourished - EENT Eyes: Present: PERRL, EOM intact - Neck Neck: Present: supple, normal ROM - Respiratory Respiratory effort: normal Respiratory: bilateral: diminished, negative: rales, rhonchi, wheezing - Cardiovascular Rhythm: regular Heart Sounds: Present: S1 & S2 - Extremities Extremities: no ischemia, No edema - Abdominal General gastrointestinal: Present: soft, non-tender, non-distended, normal bowel sounds - Integumentary Integumentary: Present: clear, warm - Musculoskeletal Musculoskeletal: strength equal bilaterally - Psychiatric Psychiatric: appropriate mood/affect, cooperative - Neurologic Neurologic: CNII-XII intact, moves all extremities Plan Activity: advance as tolerated, fall precautions Diet: regular Additional Instructions: Fall Precautions. Advised to see private neurologist if you have recurrent syncope Follow up with: REDDY YAO MD [Primary Care Provider] - 2-3 Days VIVIAN BAUMANN MD [Staff Physician] - 7 Days SOUMYA WORLEY MD [Staff Physician] - 7 Days Prescriptions: Levothyroxine [Synthroid] 50 mcg PO DAILY@0600 #30 tablet
--- NOTE | 2019-11-01 21:07 | Treadmill Report ---
THALLIUM STRESS TEST LEFT VENTRICLE: Left ventricular chamber size is within normal spread. Perfusion study demonstrates homogeneous uptake of the tracer in all segments, no significant defects identified. Gated analysis demonstrates normal left ventricular systolic function with ejection fraction calculated at 70%. CONCLUSION: Normal myocardial perfusion study. JOB# [id number] CA/NTS
== END 2019-11-01 17:47 | disposition other institution (70) ==
LOC: ED 19:17 → 4A 10-31 05:30
PROVIDERS: ADMIT Internal Medicine; ATTEND Internal Medicine
DX: I95.9 Hypotension, unspecified (principal); R55 Syncope and collapse; I10 Essential (primary) hypertension; F31.9 Bipolar disorder, unspecified; F41.9 Anxiety disorder, unspecified; E78.5 Hyperlipidemia, unspecified; I20.9 Angina pectoris, unspecified; R56.9 Unspecified convulsions; G25.1 Drug-induced tremor; R94.6 Abnormal results of thyroid function studies; R07.89 Other chest pain; Z79.899 Other long term (current) drug therapy
CPT/HCPCS: 36415; 70450; 71275; 73610; 74177; 78452; 80048; 80053; 81001; 82140; 82550; 82553; 83735; 84439; 84443; 84484; 85025; 85379; 85610; 85730; 87040; 87116; 93005; 93010; 93017; 93306; 93880; 96360; 96361; 96372; 99284; A9502; G0378; J1644; J7030; J7040; Q9967; 80320; G0480

== ENCOUNTER 2020-02-24 16:48 | Emergency (ER) | payer MEDICARE ==
[2020-02-24] MEDS ORDERED: BUTALB/ACETAMINOPHEN/CAFFEINE TAB PO ONE (18:01)
--- NOTE | 2020-02-24 18:14 | Emergency Department Report ---
ED Headache HPI - General Chief Complaint: Headache Stated Complaint: HEADACHE Time Seen by Provider: 02/24/20 18:01 Source: patient Exam Limitations: no limitations - History of Present Illness Initial Comments: 69-year-old male presents to ED with complaint of headache x2 weeks. Patient states pain is mainly located above the right eye, but does shoot across forehead to the left side at times. He denies neck pain. Patient reports chronic congestion of the right nostril for several years. States he has had sinus infections in the past. Patient reports this feels similar. Patient states pain is usually not present in the morning, but becomes worse throughout the day. States he has been taking ibuprofen for his headaches. Patient denies any nausea or vomiting, recent fevers. Patient states he tested positive for COVID approximately 1.5 weeks ago. Patient states he was tested at [facility] drive-through site. Patient reports he experienced diarrhea approximately a month ago, and currently has a cough, but denies any shortness of breath. Patient also denies sore throat and loss of smell or taste. Timing/Duration: other (2 WEEKS) Quality: moderate Associated Symptoms: nasal congestion. denies: fever/chills, nausea/vomiting, stiff neck Allergies/Adverse Reactions: Allergies No Known Allergies Allergy (Verified 08/01/14 07:29) Home Medications: Ambulatory Orders Ramelteon 8 mg PO DAILY 10/31/19 Trazodone HCl [traZODone] 150 mg PO DAILY 10/31/19 clonazePAM [Klonopin] 1 mg PO DAILY 10/31/19 propranoloL [Inderal] 10 mg PO DAILY 10/31/19 Levothyroxine [Synthroid] 50 mcg PO DAILY@0600 #30 tablet 11/01/19 Dicyclomine [Bentyl] 20 mg PO Q6H PRN #20 tablet 01/11/20 Diphenoxylate/Atropine [Lomotil] 1 - 2 tab PO Q4H PRN #15 tablet 01/11/20 Loratadine [Claritin] 10 mg PO DAILY #30 tablet 01/11/20 Amoxicillin/Potassium Clav [Amox-Clav ER 1,000-62.5 mg Tab] 2 each PO Q12HR 14 Days #56 tab.er.12h 02/24/20 ED Review of Systems ROS: Stated complaint: HEADACHE Other details as noted in HPI Comment: All other systems reviewed and negative Constitutional: denies: chills, fever ENT: congestion. denies: throat pain Respiratory: cough. denies: shortness of breath Gastrointestinal: denies: nausea, vomiting Musculoskeletal: other (Denies neck pain) Neurological: headache ED Past Medical Hx - Past Medical History Previous Medical History?: Yes Hx Hypertension: Yes Hx Arthritis: Yes (hands) Hx Seizures: Yes Hx Psychiatric Treatment: Yes Additional medical history: Bipolar, anxiety, hyperlipidemia, tremors, alcohol abuse, Chest pain - Surgical History Past Surgical History?: Yes Additional Surgical History: left leg with cast. - Social History Smoking Status: Never Smoker Substance Use Type: None - Medications Home Medications: Home Medications Medication Instructions Recorded Confirmed Last Taken Type Ramelteon 8 mg PO DAILY 10/31/19 10/31/19 Unknown History Trazodone HCl [traZODone] 150 mg PO DAILY 10/31/19 10/31/19 Unknown History clonazePAM [Klonopin] 1 mg PO DAILY 10/31/19 10/31/19 Unknown History propranoloL [Inderal] 10 mg PO DAILY 10/31/19 10/31/19 Unknown History Levothyroxine [Synthroid] 50 mcg PO DAILY@0600 #30 tablet 11/01/19 Unknown Rx Dicyclomine [Bentyl] 20 mg PO Q6H PRN #20 tablet 01/11/20 Unknown Rx Diphenoxylate/Atropine [Lomotil] 1 - 2 tab PO Q4H PRN #15 tablet 01/11/20 U nknown Rx Loratadine [Claritin] 10 mg PO DAILY #30 tablet 01/11/20 Unknown Rx Amoxicillin/Potassium Clav 2 each PO Q12HR 14 Days #56 02/24/20 Unknown Rx [Amox-Clav ER 1,000-62.5 mg Tab] tab.er.12h ED Physical Exam - General Limitations: Other General appearance: alert, in no apparent distress - Head Head exam: Present: atraumatic, normocephalic, other (Frontal and maxillary sinus tenderness present on the right; no tenderness present at the anabapt[employer]) - Eye Eye exam: Present: normal appearance, PERRL, EOMI - ENT ENT exam: Present: mucous membranes moist - Neck Neck exam: Present: normal inspection. Absent: tenderness, meningismus - Respiratory Respiratory exam: Present: normal lung sounds bilaterally. Absent: respiratory distress - Cardiovascular Cardiovascular Exam: Present: regular rate, normal rhythm - GI/Abdominal GI/Abdominal exam: Present: soft. Absent: distended, tenderness - Extremities Exam Extremities exam: Present: normal inspection - Neurological Exam Neurological exam: Present: alert, oriented X3, CN II-XII intact. Absent: motor sensory deficit - Psychiatric Psychiatric exam: Present: normal affect, normal mood - Skin Skin exam: Present: warm, dry, intact, normal color ED Course Vital Signs 02/24/20 02/24/20 02/24/20 16:52 19:25 19:30 Temperature 97.7 F Pulse Rate 63 62 Respiratory 15 20 Rate Blood Pressure 131/94 O2 Sat by Pulse 100 99 98 Oximetry 02/24/20 02/24/20 02/24/20 19:31 19:45 20:00 Temperature Pulse Rate Respiratory 20 Rate Blood Pressure 140/75 140/75 118/65 O2 Sat by Pulse 97 99 99 Oximetry 02/24/20 02/24/20 02/24/20 20:15 20:31 20:45 Temperature Pulse Rate Respiratory Rate Blood Pressure 118/65 140/75 140/75 O2 Sat by Pulse 97 97 99 Oximetry 02/24/20 02/24/20 02/24/20 21:00 21:15 21:31 Temperature Pulse Rate Respiratory Rate Blood Pressure 120/71 120/71 120/71 O2 Sat by Pulse 97 99 95 Oximetry 02/24/20 02/24/20 02/24/20 21:45 22:01 22:15 Temperature Pulse Rate Respiratory Rate Blood Pressure 167/59 135/63 135/63 O2 Sat by Pulse 98 98 95 Oximetry ED Medical Decision Making - Lab Data Result diagrams: 02/24/20 18:10 02/24/20 18:10 - Radiology Data Radiology results: report reviewed, image reviewed - Medical Decision Making 69 yo M w/ right sided WINSLOW x 2 weeks. Pt reports he tested COVID+ 1.5 weeks ago. Vitals normal here in ED, pt afebrile. No meningismus on exam. Chart states pt has hx dementia and bipolar d/o, however, pt seems pretty reliable with his history. He is A&Ox3. No neuro deficits on exam. CT shows evidence of sinusitis. Labs normal. Due to age >65, high dose augmentin prescribed for sinusitis. PCP follow-up advised. - Differential Diagnosis sinusitis, tension WINSLOW, temproal arteritis Critical care attestation.: If time is entered above; I have spent that time in minutes in the direct care of this critically ill patient, excluding procedure time. ED Disposition Clinical Impression: Acute sinusitis Disposition: DC- TO HOME OR SELFCARE Is pt being admited?: No Condition: Stable Instructions: Sinusitis (ED) Prescriptions: Amoxicillin/Potassium Clav [Amox-Clav ER 1,000-62.5 mg Tab] 2 each PO Q12HR 14 Days #56 tab.er.12h Referrals: PRIMARY MD ROSA [Primary Care Provider] - 3-5 Days MITESH TAMEZ MD [Staff Physician] - 3-5 Days [facility] [Provider Group] - 3-5 Days Time of Disposition: 19:50
[2020-02-24 18:32] LABS: Basophils % (Auto) 0.6 % (0.0-1.8); Eosinophils # (Auto) 0.2 K/mm3 (0.0-0.4); Eosinophils % (Auto) 2.1 % (0.0-4.3); Hematocrit 38.2 % (35.5-45.6); Hemoglobin 12.9 gm/dl (11.8-15.2); Lymphocytes # (Auto) 2.1 K/mm3 (1.2-5.4); Lymphocytes % (Auto) 28.4 % (13.4-35.0); Mean Corpuscular HGB Conc 34 % (32-34); Mean Corpuscular Volume 87 fl (84-94); Monocytes # (Auto) 0.6 K/mm3 (0.0-0.8); Monocytes % (Auto) 7.7 % (0.0-7.3); Platelet Count 404 K/mm3 (140-440); Red Blood Count 4.38 M/mm3 (3.65-5.03); Red Cell Distribution Width 14.4 % (13.2-15.2)
[2020-02-24 18:46] LABS: BUN/Creatinine Ratio 16; Blood Urea Nitrogen 16 mg/dL (9-20); Calcium 9.3 mg/dL (8.4-10.2); Hemolysis Index 8
--- NOTE | 2020-02-24 19:37 | Cat Scan Report ---
CT head/brain wo con INDICATION: headache. TECHNIQUE: Routine CT head without contrast. All CT scans at this location are performed using CT dos e reduction for ALARA by means of automated exposure control. COMPARISON: Brain CT 10/30/2019 FINDINGS: BRAIN / INTRACRANIAL CONTENTS: No acute hemorrhage, mass effect, midline shift, or hydrocephalus. No appreciable acute large territorial or lacunar infarct. Unchanged prominence of the ventricular syste m. ORBITS: No significant abnormality of visualized orbits. SINUSES / MASTOIDS: The right frontal sinus, right ethmoid air cells, and right maxillary sinus are c ompletely opacified to the extent visualized. The left-sided sinuses and the right sphenoid sinus are clear. ADDITIONAL FINDINGS: None. IMPRESSION: 1. No acute intracranial abnormality. 2. Sinus opacification described above is compatible with acute sinusitis in the appropriate clinical setting. Signer Name: Ole Blackmon MD Signed: 02/24/2020 7:33 PM Workstation Name: [id number]
[2020-02-24 22:23] VITALS: BP 135/63
== END 2020-02-25 00:05 | disposition home or self-care (01) ==
LOC: ED 16:48
DX: J01.80 Other acute sinusitis (principal); I10 Essential (primary) hypertension; M13.88 Other specified arthritis, other site; F41.9 Anxiety disorder, unspecified; F31.9 Bipolar disorder, unspecified; Z79.899 Other long term (current) drug therapy
CPT/HCPCS: 36415; 70450; 80048; 85025

== ENCOUNTER 2020-03-31 06:26 | Emergency (ER) | payer MEDICARE ==
[2020-03-31] MEDS ORDERED: DICYCLOMINE 20 MG/2 ML INJ IM ONE (06:49)
[2020-03-31] MEDS ORDERED: ONDANSETRON 4 MG/2 ML INJ IV ONE (06:49)
--- NOTE | 2020-03-31 06:53 | Emergency Department Report ---
ED Abdominal Pain HPI - General Chief Complaint: Abdominal Pain Stated Complaint: EMESIS Time Seen by Provider: 03/31/20 06:42 Source: patient Mode of arrival: Stretcher Limitations: No Limitations - History of Present Illness Initial Comments: Patient is 69 years old male with history of hypertension, chronic alcoholism, bipolar disorder and seizure. Patient presented to the ER via EMS from [facility] for evaluation of abdominal pain, nausea, vomiting and watery diarrhea. Patient stated that symptoms started this morning after he ate a roasted beef. Patient denied any fever or chills. He also denied any hematemesis, hematochezia or melena. Patient describes his pain as cramping in nature with no radiation. Patient denied any chest pain or shortness of breath. MD Complaint: abdominal pain -: This morning Location: diffuse Radiation: none Migration to: no migration Severity scale (0 -10): 5 Quality: cramping Consistency: intermittent - Related Data Home Medications Medication Instructions Recorded Confirmed Last Taken Ramelteon 8 mg PO DAILY 10/31/19 10/31/19 Unknown Trazodone HCl [traZODone] 150 mg PO DAILY 10/31/19 10/31/19 Unknown clonazePAM [Klonopin] 1 mg PO DAILY 10/31/19 10/31/19 Unknown propranoloL [Inderal] 10 mg PO DAILY 10/31/19 10/31/19 Unknown Previous Rx's Medication Instructions Recorded Last Taken Type Levothyroxine [Synthroid] 50 mcg PO DAILY@0600 #30 tablet 11/01/19 Unknown Rx Dicyclomine [Bentyl] 20 mg PO Q6H PRN #20 tablet 01/11/20 Unknown Rx Diphenoxylate/Atropine [Lomotil] 1 - 2 tab PO Q4H PRN #15 tablet 01/11/20 Unkno wn Rx Loratadine [Claritin] 10 mg PO DAILY #30 tablet 01/11/20 Unknown Rx Amoxicillin/Potassium Clav 2 each PO Q12HR 14 Days #56 02/24/20 Unknown Rx [Amox-Clav ER 1,000-62.5 mg Tab] tab.er.12h Allergies Allergy/AdvReac Type Severity Reaction Status Date / Time No Known Allergies Allergy Verified 08/01/14 07:29 ED Review of Systems ROS: Stated complaint: EMESIS Other details as noted in HPI Comment: All other systems reviewed and negative Constitutional: denies: chills, fever Respiratory: denies: cough, shortness of breath, SOB with exertion, wheezing Cardiovascular: denies: chest pain, palpitations Gastrointestinal: abdominal pain, nausea, vomiting, diarrhea. denies: hematemesis, melena, hematochezia Musculoskeletal: denies: back pain Neurological: denies: headache, weakness, numbness, paresthesias, confusion, abnormal gait ED Past Medical Hx - Past Medical History Hx Hypertension: Yes Hx Arthritis: Yes (hands) Hx Seizures: Yes Hx Psychiatric Treatment: Yes Additional medical history: Bipolar, anxiety, hyperlipidemia, tremors, alcohol abuse, Chest pain - Surgical History Additional Surgical History: left leg with cast. - Social History Smoking Status: Unknown if ever smoked Substance Use Type: None - Medications Home Medications: Home Medications Medication Instructions Recorded Confirmed Last Taken Type Ramelteon 8 mg PO DAILY 10/31/19 10/31/19 Unknown History Trazodone HCl [traZODone] 150 mg PO DAILY 10/31/19 10/31/19 Unknown History clonazePAM [Klonopin] 1 mg PO DAILY 10/31/19 10/31/19 Unknown History propranoloL [Inderal] 10 mg PO DAILY 10/31/19 10/31/19 Unknown History Levothyroxine [Synthroid] 50 mcg PO DAILY@0600 #30 tablet 11/01/19 Unknown Rx Dicyclomine [Bentyl] 20 mg PO Q6H PRN #20 tablet 01/11/20 Unknown Rx Diphenoxylate/Atropine [Lomotil] 1 - 2 tab PO Q4H PRN #15 tablet 01/11/20 Unknown Rx Loratadine [Claritin] 10 mg PO DAILY #30 tablet 01/11/20 Unknown Rx Amoxicillin/Potassium Clav 2 each PO Q12HR 14 Days #56 02/24/20 Unknown Rx [Amox-Clav ER 1,000-62.5 mg Tab] tab.er.12h ED Physical Exam - General Limitations: No Limitations General appearance: alert, in no apparent distress - Head Head exam: Present: atraumatic, normocephalic, normal inspection - Eye Eye exam: Present: normal appearance - ENT ENT exam: Present: normal exam, normal orophraynx, mucous membranes moist - Neck Neck exam: Present: normal inspection, full ROM. Absent: tenderness, meningismus, lymphadenopathy, thyromegaly - Respiratory Respiratory exam: Present: normal lung sounds bilaterally - Cardiovascular Cardiovascular Exam: Present: regular rate, normal rhythm, normal heart sounds - GI/Abdominal GI/Abdominal exam: Present: soft, normal bowel sounds. Absent: distended, tenderness, guarding, rebound, rigid, organomegaly, mass, bruit, pulsatile mass, hernia - Extremities Exam Extremities exam: Present: normal inspection, full ROM, normal capillary refill. Absent: pedal edema, calf tenderness - Back Exam Back exam: Present: normal inspection, full ROM. Absent: CVA tenderness (R), CVA tenderness (L) - Neurological Exam Neurological exam: Present: alert, oriented X3, CN II-XII intact, normal gait, reflexes normal. Absent: motor sensory deficit - Psychiatric Psychiatric exam: Present: normal mood. Absent: suicidal ideation - Skin Skin exam: Present: warm, intact, normal color ED Medical Decision Making - Lab Data Result diagrams: 03/31/20 07:00 03/31/20 08:14 - Radiology Data Radiology results: report reviewed - Medical Decision Making Patient is 69 years old male with history of hypertension, chronic alcoholism, bipolar disorder and seizure. Patient presented to the ER via EMS from [facility] for evaluation of abdominal pain, nausea, vomiting and watery diarrhea. Patient stated that symptoms started this morning after he ate a roasted beef. Patient denied any fever or chills. He also denied any hematemesis, hematochezia or melena. Patient describes his pain as cramping in nature with no radiation. Patient denied any chest pain or shortness of breath. Labs reviewed and is unremarkable. CT abdomen and pelvis showed evidence of enteritis however there is an incidental finding in the pancreas concerning for malignancy and require follow-up. Patient has been informed about this result and patient advised to follow-up with his primary care physician for follow-up and further management. Patient also advised to return to the ER if his symptoms are not improved. Critical care attestation.: If time is entered above; I have spent that time in minutes in the direct care of this critically ill patient, excluding procedure time. ED Disposition Clinical Impression: Abdominal pain, Acute gastroenteritis Disposition: DC-01 TO HOME OR SELFCARE Is pt being admited?: No Condition: Stable Instructions: Abdominal Pain (ED), Acute Nausea and Vomiting (ED) Referrals: PRIMARY CARE, [Primary Care Provider] - 3-5 Days
[2020-03-31 08:00] LABS: Hematocrit 41.9 % (35.5-45.6); Hemoglobin 14.3 gm/dl (11.8-15.2); Mean Corpuscular HGB Conc 34 % (32-34); Mean Corpuscular Volume 93 fl (84-94); Platelet Count 246 K/mm3 (140-440); Red Blood Count 4.53 M/mm3 (3.65-5.03); Red Cell Distribution Width 17.3 % (13.2-15.2)
[2020-03-31 08:02] LABS: Bilirubin,Urine NEG (Negative); Blood,Urine NEG (Negative); Color,Urine Yellow (Yellow); Hyaline Casts,Urine 1 /LPF; Mucus,Urine FEW /HPF; Protein,Urine <15 mg/dL mg/dL (Negative); Urobilinogen,Urine < 2.0 mg/dL (<2.0); WBC,Urine < 1.0 /HPF (0.0-6.0)
[2020-03-31 08:51] LABS: BUN/Creatinine Ratio 16; Blood Urea Nitrogen 18 mg/dL (9-20); Calcium 9.8 mg/dL (8.4-10.2)
[2020-03-31 08:52] LABS: Alanine Aminotransferase 20 units/L (7-56); Albumin 4.5 g/dL (3.9-5); Bilirubin,Direct < 0.2 mg/dL (0-0.2); Hemolysis Index 24
[2020-03-31] MEDS ORDERED: MORPHINE 4 MG/1 ML INJ IV ONE (09:30)
--- NOTE | 2020-03-31 10:26 | Cat Scan Report ---
CT abdomen pelvis w con INDICATION / CLINICAL INFORMATION: lower abd pain and diarrhea 100 ml Omni 300 . TECHNIQUE: All CT scans at this location are performed using CT dose reduction for ALARA by means of automated e xposure control. COMPARISON: 10/31/2019 FINDINGS: Mild subsegmental atelectasis is identified in the left lower lobe otherwise no remarkable findings o n limited lower thoracic images. ABDOMEN: The gallbladder, liver, spleen and kidneys are normal. No biliary ductal dilatation There is interval development of slight prominence of the entire pancreatic duct. No peripancreatic inflammatory changes. The head of the pancreas is slightly full but a discrete mass is not visualized. No periportal or retroperitoneal adenopathy. Adrenal glands are normal. Is mild small bowel distention and slight wall thickening without transition zone, nonspecific. Pelvis: Prostate is enlarged. No pelvic adenopathy. No acute colon abnormality. The distal colon is collapsed. The appendix is normal. No significant skeletal abnormality. IMPRESSION: 1. New pancreatic ductal dilatation and slight enlargement of the pancreatic head could be due to mil d or early acute pancreatitis, correlate with pancreatic enzymes and history. Follow-up is recommende d to exclude malignancy. 2. Nonspecific appearance of small bowel, most likely enteritis versus developing ileus. Signer Name: Jose Raul Patel MD Signed: 03/31/2020 10:21 AM Workstation Name: [id number]
== END 2020-03-31 11:53 | disposition home or self-care (01) ==
LOC: ED 06:26
DX: K52.9 Noninfective gastroenteritis and colitis, unspecified (principal); I10 Essential (primary) hypertension; M19.90 Unspecified osteoarthritis, unspecified site; F31.9 Bipolar disorder, unspecified; F41.9 Anxiety disorder, unspecified; Z86.69 Personal history of other diseases of the nervous system and sense organs; Z79.899 Other long term (current) drug therapy; Z79.2 Long term (current) use of antibiotics
CPT/HCPCS: 36415; 74177; 80048; 80076; 81001; 83690; 85025; 96372; 96374; 96375; 99284; J0500; J2270; J2405

== ENCOUNTER 2020-06-11 15:51 | Emergency (ER) | payer MEDICARE ==
[2020-06-11 17:58] VITALS: BP 123/75
--- NOTE | 2020-06-11 17:58 | Emergency Department Report ---
ED General Adult HPI - General Chief complaint: Earache Stated complaint: HEARING LOSS PUI?: No Time Seen by Provider: 06/11/20 16:54 Source: EMS ( EMS documentation not available at time of chart dictation ), RN notes reviewed, old records reviewed Mode of arrival: Ambulatory Limitations: Other (Patient is hard of hearing.) - History of Present Illness Initial comments: The patient was evaluated in the emergency department for symptoms described in the history of present illness. He/she was evaluated in the context of the global COVID-19 pandemic, which necessitated consideration that the patient might be at risk for infection with the virus that causes COVID-19. Institutional protocols and algorithms that pertain to the evaluation of patients at risk for COVID-19 are in a state of rapid change based on information released by regulatory bodies including the CDC and federal and state organizations. These policies and algorithms were followed during the patient's care in the emergency department. Please note that these policies, procedures and recommendations changed on a rapid basis. Patient is a 69-year-old gentleman, with a past history of hypertension, seizure, bipolar disorder, anxiety, hyperlipidemia, tremors, and alcohol abuse. He presents to the ER with a complaint of painless hearing loss, for 2 weeks. He reports that he has follow-up with his primary care doctor for this issue, this August. The patient makes no complaint of headache, neck pain, headache, chest pain, abdominal pain shortness of breath. Patient makes no complaint of fever. The patient indicates that he feels like his hearing is "going away." The patient and I communicate through written word, which he is able to read and processed without difficulty. The patient is able to talk to me after reading my written responses. He indicates that hearing loss is constant, does not radiate anywhere, does not have exacerbating or relieving factors that he is aware of. -: week(s) Consistency: constant Improves with: none Worsens with: none - Related Data Home Medications Medication Instructions Recorded Confirmed Last Taken Ramelteon 8 mg PO DAILY 10/31/19 06/11/20 Unknown Trazodone HCl [traZODone] 150 mg PO DAILY 10/31/19 06/11/20 Unknown clonazePAM [Klonopin] 1 mg PO DAILY 10/31/19 06/11/20 Unknown propranoloL [Inderal] 10 mg PO DAILY 10/31/19 06/11/20 Unknown Donepezil HCl [Donepezil HCl Odt] 5 mg PO DAILY 06/11/20 06/11/20 Unknown Levothyroxine [Synthroid] 50 mcg PO DAILY 06/11/20 06/11/20 Unknown Mirtazapine [Remeron 30mg Rapdis] 30 mg PO DAILY 06/11/20 06/11/20 Unknown Previous Rx's Medication Instructions Recorded Last Taken Type Loratadine [Claritin] 10 mg PO DAILY #30 tablet 01/11/20 Unknown Rx Allergies Allergy/AdvReac Type Severity Reaction Status Date / Time No Known Allergies Allergy Verified 08/01/14 07:29 ED Review of Systems ROS: Stated complaint: HEARING LOSS Other details as noted in HPI Constitutional: denies: fever ENT: hearing loss. denies: ear pain Cardiovascular: denies: chest pain Gastrointestinal: denies: abdominal pain Neurological: denies: headache ED Past Medical Hx - Past Medical History Hx Hypertension: Yes Hx Arthritis: Yes (hands) Hx Seizures: Yes Hx Psychiatric Treatment: Yes Hx Dementia: Yes (Alzheimers, Lives [facility]) Additional medical history: Bipolar, anxiety, hyperlipidemia, tremors, alcohol abuse, Chest pain - Surgical History Additional Surgical History: left leg with cast. - Social History Smoking Status: Never Smoker Substance Use Type: None - Medications Home Medications: Home Medications Medication Instructions Recorded Confirmed Last Taken Type Ramelteon 8 mg PO DAILY 10/31/19 06/11/20 Unknown History Trazodone HCl [traZODone] 150 mg PO DAILY 10/31/19 06/11/20 Unknown History clonazePAM [Klonopin] 1 mg PO DAILY 10/31/19 06/11/20 Unknown History propranoloL [Inderal] 10 mg PO DAILY 10/31/19 06/11/20 Unknown History Loratadine [Claritin] 10 mg PO DAILY #30 tablet 01/11/20 06/11/20 Unknown Rx Donepezil HCl [Donepezil HCl Odt] 5 mg PO DAILY 06/11/20 06/11/20 Unknown History Levothyroxine [Synthroid] 50 mcg PO DAILY 06/11/20 06/11/20 Unknown History Mirtazapine [Remeron 30mg Rapdis] 30 mg PO DAILY 06/11/20 06/11/20 Unknown History ED Physical Exam - General Limitations: Other (Patient is very hard of hearing) General appearance: alert, in no apparent distress - Head Head exam: Present: atraumatic, normocephalic - Eye Eye exam: Present: normal appearance, PERRL, EOMI. Absent: nystagmus - ENT ENT exam: Present: normal exam, normal orophraynx, mucous membranes moist, TM's normal bilaterally, normal external ear exam, other (Cerumen is noted in the bilateral external auditory canals, left greater than right. There is no mastoid tenderness.) - Neck Neck exam: Present: normal inspection, full ROM. Absent: tenderness, meningismus - Respiratory Respiratory exam: Present: normal lung sounds bilaterally. Absent: respiratory distress - Cardiovascular Cardiovascular Exam: Present: regular rate, normal rhythm, normal heart sounds. Absent: bradycardia, tachycardia, irregular rhythm, systolic murmur, diastolic murmur, rubs, gallop - GI/Abdominal GI/Abdominal exam: Present: soft. Absent: distended, tenderness, guarding, rebound, rigid, pulsatile mass - Rectal Rectal exam: Present: deferred - Extremities Exam Extremities exam: Present: normal inspection, full ROM, other (2+ pulses noted in the bilateral upper and lower extremities. There is no palpable cord. negative Homans sign. Muscular compartments are soft. The pelvis is stable.). Absent: pedal edema, calf tenderness - Back Exam Back exam: Present: normal inspection, full ROM. Absent: tenderness, CVA tenderness (R), CVA tenderness (L), paraspinal tenderness, vertebral tenderness - Neurological Exam Neurological exam: Present: alert, normal gait, other (No facial droop. Tongue midline. Extraocular movements intact bilaterally. Facial sensation intact to light touch in V1, V2, V3 distribution bilaterally. 5 and a 5 strength in 4 extremities. Sensation intact to light touch in 4 extremities.) - Psychiatric Psychiatric exam: Present: anxious - Skin Skin exam: Present: warm, dry, intact, normal color. Absent: rash ED Course Vital Signs 06/11/20 06/11/20 16:15 17:58 Temperature 97.6 F Pulse Rate 87 88 Respiratory 14 18 Rate Blood Pressure 134/84 123/75 [Left] O2 Sat by Pulse 99 100 Oximetry ED Medical Decision Making - Lab Data Vital Signs 06/11/20 16:15 Pulse Rate 87 Respiratory 14 Rate Blood Pressure 134/84 [Left] O2 Sat by Pulse 99 Oximetry Vital Signs 06/11/20 06/11/20 16:15 17:58 Temperature 97.6 F Pulse Rate 87 88 Respiratory 14 18 Rate Blood Pressure 134/84 123/75 [Left] O2 Sat by Pulse 99 100 Oximetry - Medical Decision Making Differential diagnosis, including but not limited to: Cerumen impaction, conductive hearing loss, sensorineural hearing loss Assessment and plan: 69-year-old gentleman, who is afebrile, with reassuring vital signs, with no meningeal signs, no mastoid tenderness, walking with a steady gait, with a benign and unremarkable physical examination, bilateral external auditory canals with cerumen, with complaints of painless hearing loss for 2 weeks. This does not represent an emergency medical condition. The patient can follow- up with an outpatient primary care doctor, neurologist, document specialist for further evaluation of this nonemergent complaint. Critical care attestation.: If time is entered above; I have spent that time in minutes in the direct care of this critically ill patient, excluding procedure time. ED Disposition Clinical Impression: Hearing loss Qualifiers: Hearing loss type: unspecified Laterality: unspecified laterality Qualified Code(s): H91.90 - Unspecified hearing loss, unspecified ear Disposition: DC-01 TO HOME OR SELFCARE Is pt being admited?: No Does the pt Need Aspirin: No Condition: Stable Instructions: Cerumen Impaction (ED) Additional Instructions: Please do not clean ear canals with Q-tips. If patient elects to clean ear canals, patient should use hydrogen peroxide or mineral oil. Avoid listening to very loud sounds and/or music. Please follow-up with a primary care doctor, neurologist, or document specialist/wound care specialist within the next week to 10 days. Please return to the emergency room right away with new pain, worsening pain, migration of pain, projectile vomiting, change in mental status, confusion, inability to tolerate liquid feeds, new, worsened or different symptoms not present on the initial emergency room evaluation. Referrals: PREETI ARECHIGA MD [Referring] - 3-5 Days BESSIE BRADFORD MD [Referring] - 3-5 Days MITESH TAMEZ MD [Staff Physician] - 3-5 Days Time of Disposition: 18:01 (d/c to personal [facility]p)
== END 2020-06-11 19:33 | disposition home or self-care (01) ==
LOC: ED 15:51
DX: H91.90 Unspecified hearing loss, unspecified ear (principal); I10 Essential (primary) hypertension; M19.91 Primary osteoarthritis, unspecified site; R56.9 Unspecified convulsions; F03.90 Unspecified dementia, unspecified severity, without behavioral disturbance, psychotic disturbance, mood disturbance, and anxiety; Z98.890 Other specified postprocedural states; Z79.899 Other long term (current) drug therapy

== ENCOUNTER 2020-07-05 15:41 | Emergency (ER) | payer MEDICARE ==
[2020-07-05] MEDS ORDERED: MIRTAZAPINE 15 MG TAB PO ONE (20:13)
[2020-07-05] MEDS ORDERED: traZODone 50 MG TAB PO ONE (20:13)
--- NOTE | 2020-07-05 20:13 | Emergency Department Report ---
ED General Adult HPI - General Chief complaint: Medical Clearance Stated complaint: WITHDRAWS/SHAKY/DISCOMFORT PUI?: No Time Seen by Provider: 07/05/20 20:05 Source: patient Mode of arrival: Wheelchair Limitations: No Limitations - History of Present Illness Initial comments: This is a 69-year-old male with history of bipolar disorder, dementia, arthritis, hypertension, seizure disorder, hyperlipidemia who presents with need for medication. 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 He expects his home pharmacy to deliver the medication on Tuesday or Tuesday. He truly desires trazodone. Previous medications listed in the electronic medical record includes ramelteon, trazodone, Klonopin diazepam, propranolol, loratadine, donepezil, levothyroxine, Remeron he denies any pain at this time. -: days(s) (1) Severity scale (0 -10): 0 Consistency: constant Improves with: none Worsens with: none Associated Symptoms: denies other symptoms Treatments Prior to Arrival: none - Related Data Home Medications Medication Instructions Recorded Confirmed Last Taken Ramelteon 8 mg PO DAILY 10/31/19 06/11/20 Unknown Trazodone HCl [traZODone] 150 mg PO DAILY 10/31/19 06/11/20 Unknown clonazePAM [Klonopin] 1 mg PO DAILY 10/31/19 06/11/20 Unknown propranoloL [Inderal] 10 mg PO DAILY 10/31/19 06/11/20 Unknown Donepezil HCl [Donepezil HCl Odt] 5 mg PO DAILY 06/11/20 06/11/20 Unknown Levothyroxine [Synthroid] 50 mcg PO DAILY 06/11/20 06/11/20 Unknown Mirtazapine [Remeron 30mg Rapdis] 30 mg PO DAILY 06/11/20 06/11/20 Unknown Previous Rx's Medication Instructions Recorded Last Taken Type Loratadine [Claritin] 10 mg PO DAILY #30 tablet 01/11/20 Unknown Rx Allergies Allergy/AdvReac Type Severity Reaction Status Date / Time No Known Allergies Allergy Verified 08/01/14 07:29 ED Review of Systems ROS: Stated complaint: WITHDRAWS/SHAKY/DISCOMFORT Other details as noted in HPI Comment: All other systems reviewed and negative Constitutional: denies: fever, malaise Respiratory: denies: cough, shortness of breath Gastrointestinal: denies: abdominal pain, nausea, vomiting ED Past Medical Hx - Past Medical History Previous Medical History?: Yes Hx Hypertension: Yes Hx Arthritis: Yes (hands) Hx Seizures: Yes Hx Psychiatric Treatment: Yes Hx Dementia: Yes (Alzheimers, Lives [facility]) Additional medical history: Bipolar, anxiety, hyperlipidemia, tremors, alcohol abuse, Chest pain - Surgical History Past Surgical History?: Yes Additional Surgical History: left leg with cast. - Social History Smoking Status: Never Smoker Substance Use Type: None - Medications Home Medications: Home Medications Medication Instructions Recorded Confirmed Last Taken Type Ramelteon 8 mg PO DAILY 10/31/19 06/11/20 Unknown History Trazodone HCl [traZODone] 150 mg PO DAILY 10/31/19 06/11/20 Unknown History clonazePAM [Klonopin] 1 mg PO DAILY 10/31/19 06/11/20 Unknown History propranoloL [Inderal] 10 mg PO DAILY 10/31/19 06/11/20 Unknown History Loratadine [Claritin] 10 mg PO DAILY #30 tablet 01/11/20 06/11/20 Unknown Rx Donepezil HCl [Donepezil HCl Odt] 5 mg PO DAILY 06/11/20 06/11/20 Unknown History Levothyroxine [Synthroid] 50 mcg PO DAILY 06/11/20 06/11/20 Unknown History Mirtazapine [Remeron 30mg Rapdis] 30 mg PO DAILY 06/11/20 06/11/20 Unknown History ED Physical Exam - General Limitations: No Limitations General appearance: alert, in no apparent distress - Head Head exam: Present: atraumatic, normocephalic - Eye Eye exam: Present: normal appearance - ENT ENT exam: Present: mucous membranes moist - Neck Neck exam: Present: normal inspection, full ROM - Respiratory Respiratory exam: Present: normal lung sounds bilaterally. Absent: respiratory distress, wheezes, rales, rhonchi - Cardiovascular Cardiovascular Exam: Present: regular rate, normal rhythm, normal heart sounds. Absent: systolic murmur, diastolic murmur, rubs, gallop - GI/Abdominal GI/Abdominal exam: Present: soft, normal bowel sounds. Absent: distended, tenderness, guarding, rebound - Rectal Rectal exam: Present: deferred - Extremities Exam Extremities exam: Present: normal inspection - Neurological Exam Neurological exam: Present: alert, oriented X3 - Psychiatric Psychiatric exam: Present: normal affect, normal mood - Skin Skin exam: Present: warm, dry, intact, normal color. Absent: rash ED Course Vital Signs 07/05/20 07/05/20 15:48 17:48 Temperature 98.6 F Pulse Rate 80 76 Respiratory 20 20 Rate Blood Pressure 169/142 156/98 O2 Sat by Pulse 99 Oximetry ED Medical Decision Making - EKG Data -: EKG Interpreted by [facility] EKG shows normal: sinus rhythm, axis, QRS complexes Rate: normal - EKG Data 07/05/20 20:10 EKG obtained 1754 EKG interpreted by [facility]n Normal sinus rhythm 60 bpm normal rate normal axis normal intervals no ST elevation no ST-T signs of ischemia normal EKG - Medical Decision Making Mr. Hernandez presents with need for home medications. He appears well. Mr. Hernandez was given doses of Remeron and Mirtazepine. Dc'd home. Critical care attestation.: If time is entered above; I have spent that time in minutes in the direct care of this critically ill patient, excluding procedure time. ED Disposition Clinical Impression: Medication administered, Dementia Disposition: DC-01 TO HOME OR SELFCARE Is pt being admited?: No Does the pt Need Aspirin: No Condition: Stable Referrals: PRIMARY CARE, [Primary Care Provider] - 3-5 Days
[2020-07-05 20:24] VITALS: BP 150/87
== END 2020-07-05 20:37 | disposition home or self-care (01) ==
LOC: ED 15:41
DX: F03.90 Unspecified dementia, unspecified severity, without behavioral disturbance, psychotic disturbance, mood disturbance, and anxiety (principal); I10 Essential (primary) hypertension; M19.91 Primary osteoarthritis, unspecified site; R56.9 Unspecified convulsions; Z98.890 Other specified postprocedural states; Z79.899 Other long term (current) drug therapy
CPT/HCPCS: 93005

== ENCOUNTER 2021-03-14 06:23 | Emergency (ER) | payer MEDICARE ==
[2021-03-14 07:34] VITALS: BP 151/92
--- NOTE | 2021-03-14 08:51 | Emergency Department Report ---
ED General Adult HPI - General Chief complaint: Medical Clearance Stated complaint: MED REFILL Time Seen by Provider: 03/14/21 07:52 Source: patient Mode of arrival: Ambulatory Limitations: No Limitations - History of Present Illness Initial comments: This is a 70-year-old male he was brought to the emergency room with complaints of being out of his meds. Patient states he is a resident at [facility] and that some of his medicines were not available to him .he states that he took propranolol and Klonopin last night but the rest of his meds he is out of he is now stating that because of that he has not slept all night he feels restless he also reports having diarrhea throughout the night. he denies abdominal pain he denies any urinary symptoms he denies any chest pain or shortness of breath or any known injuries. Patient reports history of dementia, bipolar disorder anxiety and EtOH abuse. Patient is well spoken he is oriented x3 able to state his place of residence he is PCP name. He is in no acute distress -: Last night Severity scale (0 -10): 0 Consistency: intermittent Improves with: none Worsens with: none Associated Symptoms: denies: confusion, chest pain, cough, diaphoresis, headaches, loss of appetite, malaise, nausea/vomiting, rash, seizure, shortness of breath, syncope, weakness Treatments Prior to Arrival: none - Related Data Home Medications Medication Instructions Recorded Confirmed Last Taken Ramelteon 8 mg PO DAILY 10/31/19 06/11/20 Unknown Trazodone HCl [traZODone] 150 mg PO DAILY 10/31/19 06/11/20 Unknown clonazePAM [Klonopin] 1 mg PO DAILY 10/31/19 06/11/20 Unknown propranoloL [Inderal] 10 mg PO DAILY 10/31/19 06/11/20 Unknown Donepezil HCl [Donepezil HCl Odt] 5 mg PO DAILY 06/11/20 06/11/20 Unknown Levothyroxine [Synthroid] 50 mcg PO DAILY 06/11/20 06/11/20 Unknown Mirtazapine [Remeron 30mg Rapdis] 30 mg PO DAILY 06/11/20 06/11/20 Unknown Previous Rx's Medication Instructions Recorded Last Taken Type Loratadine [Claritin] 10 mg PO DAILY #30 tablet 01/11/20 Unknown Rx Allergies Allergy/AdvReac Type Severity Reaction Status Date / Time apple AdvReac Diarrhea Verified 03/14/21 09:35 ED Review of Systems ROS: Stated complaint: MED REFILL Other details as noted in HPI Comment: All other systems reviewed and negative Constitutional: denies: chills, fever, weakness Respiratory: no symptoms reported Cardiovascular: denies: chest pain, palpitations, dyspnea on exertion, orthopnea, edema, syncope, paroxysmal nocturnal dyspnea Endocrine: no symptoms reported. denies: excessive sweating Gastrointestinal: diarrhea. denies: abdominal pain, nausea, vomiting, constipation, hematemesis, melena, hematochezia Genitourinary: denies: urgency, dysuria, frequency, hematuria Skin: denies: rash, lesions Neurological: denies: headache, weakness, numbness, paresthesias Psychiatric: denies: anxiety, depression ED Past Medical Hx - Past Medical History Hx Hypertension: Yes Hx Arthritis: Yes (hands) Hx Seizures: Yes Hx Psychiatric Treatment: Yes Hx Dementia: Yes (Alzheimers, Lives [facility]) Additional medical history: Bipolar, anxiety, hyperlipidemia, tremors, alcohol abuse, Chest pain - Surgical History Additional Surgical History: left leg with cast. - Social History Smoking Status: Never Smoker Substance Use Type: None - Medications Home Medications: Home Medications Medication Instructions Recorded Confirmed Last Taken Type Ramelteon 8 mg PO DAILY 10/31/19 06/11/20 Unknown History Trazodone HCl [traZODone] 150 mg PO DAILY 10/31/19 06/11/20 Unknown History clonazePAM [Klonopin] 1 mg PO DAILY 10/31/19 06/11/20 Unknown History propranoloL [Inderal] 10 mg PO DAILY 10/31/19 06/11/20 Unknown History Loratadine [Claritin] 10 mg PO DAILY #30 tablet 01/11/20 06/11/20 Unknown Rx Donepezil HCl [Donepezil HCl Odt] 5 mg PO DAILY 06/11/20 06/11/20 Unknown History Levothyroxine [Synthroid] 50 mcg PO DAILY 06/11/20 06/11/20 Unknown History Mirtazapine [Remeron 30mg Rapdis] 30 mg PO DAILY 06/11/20 06/11/20 Unknown History ED Physical Exam - General Limitations: No Limitations General appearance: alert, in no apparent distress - Head Head exam: Present: atraumatic, normal inspection - Eye Eye exam: Present: normal appearance - ENT ENT exam: Present: normal exam, mucous membranes moist - Neck Neck exam: Present: normal inspection, full ROM - Respiratory Respiratory exam: Present: normal lung sounds bilaterally. Absent: respiratory distress, wheezes, rales, rhonchi, stridor - Cardiovascular Cardiovascular Exam: Present: regular rate, normal heart sounds - GI/Abdominal GI/Abdominal exam: Present: soft, normal bowel sounds. Absent: distended, tenderness, guarding, rebound - Rectal Rectal exam: Present: deferred - Extremities Exam Extremities exam: Present: normal inspection, other (Ambulatory with steady gait) - Back Exam Back exam: Present: normal inspection, full ROM - Neurological Exam Neurological exam: Present: alert, oriented X3, normal gait - Psychiatric Psychiatric exam: Present: normal affect - Skin Skin exam: Present: warm, dry, intact, normal color ED Course Vital Signs 03/14/21 07:33 Temperature 98.2 F Pulse Rate 54 L Respiratory 20 Rate Blood Pressure 151/92 O2 Sat by Pulse 99 Oximetry - Reevaluation(s) Reevaluation #1: 03/14/21 11:01 Patient in no distress reports doing well no diarrhea since in the emergency room. States that he is ready to go. I called [facility] and spoke to Ms. Pickett she is to the senior account representative of the facility. Ms. 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 Ms. Pickett is ready for patient to return to [facility]. ED Medical Decision Making - Lab Data Result diagrams: 03/14/21 08:48 03/14/21 08:48 - Medical Decision Making 70-year-old male with a history of dementia bipolar disorder and anxiety presents to the emergency room stating that he is out some of his medications. He also reported episodes of diarrhea last night. Upon evaluation there is no sign of dehydration or blood in fact infection or urine infection. I spoke to the senior account representative of the facility [facility] where patient resides and she states that patient has all the medications that he needs and she is the one that sees to it that he is medicated as prescribed. The plan is for patient to receive transport back to [facility] at [address] [place] [address] [address]. Patient is in no distress with no further complaints and is safe to be returned to his place of residence Critical Care Time: No Critical care attestation.: If time is entered above; I have spent that time in minutes in the direct care of this critically ill patient, excluding procedure time. ED Disposition Clinical Impression: Encounter for medical assessment Diarrhea Qualifiers: Diarrhea type: unspecified type Qualified Code(s): R19.7 - Diarrhea, unspecified Disposition: DC- TO HOME OR SELFCARE Is pt being admited?: No Does the pt Need Aspirin: No Condition: Stable Instructions: Diarrhea, Adult, Health Maintenance After Age 65 Additional Instructions: Rest drink plenty fluids. I suggested clear liquid diet for the next 24 hours then gradually increase avoid dairy or dairy products for the next 2 days. Follow-up with your primary care doctor or an return or return to the emergency room for any worsening symptoms such as fever abdominal pain and bloody diarrhea Referrals: PRIMARY MD ROSA [Referring] - 3-5 Days MITESH TAMEZ MD [Staff Physician] - 3-5 Days Time of Disposition: 11:07
[2021-03-14] MEDS ORDERED: hydrOXYzine HCL 25 MG TAB PO ONE (08:56)
[2021-03-14 09:56] LABS: Hematocrit 44.8 % (35.5-45.6); Hemoglobin 15.3 gm/dl (11.8-15.2); Mean Corpuscular HGB Conc 34 % (32-34); Mean Corpuscular Volume 92 fl (84-94); Platelet Count 253 K/mm3 (140-440); Red Blood Count 4.87 M/mm3 (3.65-5.03); Red Cell Distribution Width 14.3 % (13.2-15.2)
[2021-03-14 10:13] LABS: Bilirubin,Urine NEG (Negative); Blood,Urine NEG (Negative); Color,Urine Straw (Yellow); Protein,Urine <15 mg/dL mg/dL (Negative); Urobilinogen,Urine < 2.0 mg/dL (<2.0); WBC,Urine < 1.0 /HPF (0.0-6.0)
[2021-03-14 10:23] LABS: BUN/Creatinine Ratio 15; Blood Urea Nitrogen 15 mg/dL (9-20); Hemolysis Index 35
== END 2021-03-14 11:20 | disposition home or self-care (01) ==
LOC: ED 06:23
DX: R19.7 Diarrhea, unspecified (principal); I10 Essential (primary) hypertension; M19.91 Primary osteoarthritis, unspecified site; R56.9 Unspecified convulsions; Z98.890 Other specified postprocedural states; Z79.899 Other long term (current) drug therapy; Z91.018 Allergy to other foods
CPT/HCPCS: 36415; 80048; 81001; 85027

== ENCOUNTER 2021-04-26 10:24 | Emergency (ER) | payer MEDICARE ==
[2021-04-26] MEDS ORDERED: SODIUM CHLORIDE 0.9% 1000 ML 1,000 ML IV ONE (10:46)
[2021-04-26] MEDS ORDERED: DICYCLOMINE 20 MG/2 ML INJ IM ONE (10:46)
[2021-04-26 11:31] LABS: Basophils % (Auto) 0.4 % (0.0-1.8); Eosinophils # (Auto) 0.1 K/mm3 (0.0-0.4); Eosinophils % (Auto) 2.6 % (0.0-4.3); Hematocrit 39.7 % (35.5-45.6); Hemoglobin 13.8 gm/dl (11.8-15.2); Lymphocytes # (Auto) 1.4 K/mm3 (1.2-5.4); Lymphocytes % (Auto) 30.5 % (13.4-35.0); Mean Corpuscular HGB Conc 35 % (32-34); Mean Corpuscular Volume 91 fl (84-94); Monocytes # (Auto) 0.3 K/mm3 (0.0-0.8); Platelet Count 237 K/mm3 (140-440); Red Blood Count 4.34 M/mm3 (3.65-5.03); Red Cell Distribution Width 14.2 % (13.2-15.2)
[2021-04-26 11:45] LABS: Alanine Aminotransferase 20 units/L (7-56); Albumin 3.8 g/dL (3.9-5); BUN/Creatinine Ratio 9; Blood Urea Nitrogen 10 mg/dL (9-20); Hemolysis Index 7
--- NOTE | 2021-04-26 12:34 | Cat Scan Report ---
CT ABDOMEN AND PELVIS WITH CONTRAST HISTORY: abd p[ain with diarrhea OMNIPAQUE 300 100ML. COMPARISON: None. TECHNIQUE: CT images of the abdomen and pelvis were obtained following administration of intravenous contrast. All CT scans at this location are performed using CT dose reduction for ALARA by means of automated exposure control. CONTRAST: 100 ml of intravenous contrast administered. FINDINGS: Lungs/bones: Lung bases are clear Abdomen/pelvis: The liver, spleen, adrenal glands, pancreas, gallbladder and upper GI tract appear n ormal. Bilateral kidneys appear normal. Urinary bladder is contracted. Pancreatic duct dilatation is not as well-seen on today's examination. No peripancreatic fluid collection or inflammation. Aorta ap pears normal. Degenerative changes seen throughout spine. Appendix is not well seen however there is no evidence for appendicitis IMPRESSION: 1. Interval improvement in pancreatic ductal dilatation. No fluid collection or inflammation surround ing the pancreas. Pancreas appears normal. 2. No bowel obstruction is identified. Signer Name: Justice Duggan MD Signed: 04/26/2021 12:30 PM Workstation Name: [id number]
--- NOTE | 2021-04-26 13:12 | Emergency Department Report ---
ED N/V/D HPI - General Chief complaint: Abdominal Pain Stated complaint: ABDOMINAL PAIN Time Seen by Provider: 04/26/21 10:41 Source: patient, EMS Mode of arrival: Stretcher Limitations: No Limitations - History of Present Illness Initial comments: Patient is a 70-year-old male who is presenting with 3 weeks of intermittent diarrhea. He states that diarrhea is loose and somewhat dark in color. States he has some lower abdominal crampy pain. States he will take Kaopectate and Pepto-Bismol which will help the symptoms for approximately a day but then it returns. Has not had any nausea vomiting during this episode. Denies fever cough cold congestion. Denies seeing any actual blood in his stool. - Related Data Home Medications Medication Instructions Recorded Confirmed Last Taken Ramelteon 8 mg PO DAILY 10/31/19 06/11/20 Unknown Trazodone HCl [traZODone] 150 mg PO DAILY 10/31/19 06/11/20 Unknown clonazePAM [Klonopin] 1 mg PO DAILY 10/31/19 06/11/20 Unknown propranoloL [Inderal] 10 mg PO DAILY 10/31/19 06/11/20 Unknown Donepezil HCl [Donepezil HCl Odt] 5 mg PO DAILY 06/11/20 06/11/20 Unknown Levothyroxine [Synthroid] 50 mcg PO DAILY 06/11/20 06/11/20 Unknown Mirtazapine [Remeron 30mg Rapdis] 30 mg PO DAILY 06/11/20 06/11/20 Unknown Previous Rx's Medication Instructions Recorded Last Taken Type Loratadine [Claritin] 10 mg PO DAILY #30 tablet 01/11/20 Unknown Rx Dicyclomine [Bentyl] 20 mg PO QID #14 tablet 04/26/21 Unknown Rx Diphenoxylate/Atropine [Lomotil] 1 tab PO Q8HR PRN #10 tablet 04/26/21 Unknown Rx Allergies Allergy/AdvReac Type Severity Reaction Status Date / Time apple AdvReac Diarrhea Verified 03/14/21 09:35 ED Review of Systems ROS: Stated complaint: ABDOMINAL PAIN Other details as noted in HPI Comment: All other systems reviewed and negative ED Past Medical Hx - Past Medical History Hx Hypertension: Yes Hx Arthritis: Yes (hands) Hx Seizures: Yes Hx Psychiatric Treatment: Yes Hx Dementia: Yes (Alzheimers, Lives [employer]) Additional medical history: Bipolar, anxiety, hyperlipidemia, tremors, alcohol abuse, Chest pain - Surgical History Additional Surgical History: left leg with cast. - Social History Smoking Status: Never Smoker - Medications Home Medications: Home Medications Medication Instructions Recorded Confirmed Last Taken Type Ramelteon 8 mg PO DAILY 10/31/19 06/11/20 Unknown History Trazodone HCl [traZODone] 150 mg PO DAILY 10/31/19 06/11/20 Unknown History clonazePAM [Klonopin] 1 mg PO DAILY 10/31/19 06/11/20 Unknown History propranoloL [Inderal] 10 mg PO DAILY 10/31/19 06/11/20 Unknown History Loratadine [Claritin] 10 mg PO DAILY #30 tablet 01/11/20 06/11/20 Unknown Rx Donepezil HCl [Donepezil HCl Odt] 5 mg PO DAILY 06/11/20 06/11/20 Unknown History Levothyroxine [Synthroid] 50 mcg PO DAILY 06/11/20 06/11/20 Unknown History Mirtazapine [Remeron 30mg Rapdis] 30 mg PO DAILY 06/11/20 06/11/20 Unknown History Dicyclomine [Bentyl] 20 mg PO QID #14 tablet 04/26/21 Unknown Rx Diphenoxylate/Atropine [Lomotil] 1 tab PO Q8HR PRN #10 tablet 04/26/21 Unknown Rx ED Physical Exam - General Limitations: No Limitations General appearance: alert, in no apparent distress - Head Head exam: Present: atraumatic, normocephalic - Eye Eye exam: Present: normal appearance - ENT ENT exam: Present: mucous membranes moist - Neck Neck exam: Present: normal inspection - Respiratory Respiratory exam: Present: normal lung sounds bilaterally. Absent: respiratory distress, wheezes, rales, rhonchi - Cardiovascular Cardiovascular Exam: Present: regular rate, normal rhythm, normal heart sounds. Absent: systolic murmur, diastolic murmur, rubs, gallop - GI/Abdominal GI/Abdominal exam: Present: soft, tenderness (lower abd mild), normal bowel sounds. Absent: distended, guarding, rebound, rigid - Rectal Rectal exam: Present: deferred - Extremities Exam Extremities exam: Present: normal inspection - Back Exam Back exam: Present: normal inspection - Neurological Exam Neurological exam: Present: alert, oriented X3 - Psychiatric Psychiatric exam: Present: normal affect, normal mood - Skin Skin exam: Present: warm, dry, intact, normal color. Absent: rash ED Course Vital Signs 04/26/21 10:47 Temperature 98.0 F Pulse Rate 60 Respiratory 13 Rate Blood Pressure 126/72 [Left] O2 Sat by Pulse 97 Oximetry ED Medical Decision Making - Lab Data Result diagrams: 04/26/21 10:54 04/26/21 10:54 Lab Results 04/26/21 04/26/21 Range/Units 10:54 10:54 WBC 4.6 (4.5-11.0) K/mm3 RBC 4.34 (3.65-5.03) M/mm3 Hgb 13.8 (11.8-15.2) gm/dl Hct 39.7 (35.5-45.6) % MCV 91 (84-94) fl MCH 32 (28-32) pg MCHC 35 H (32-34) % RDW 14.2 (13.2-15.2) % Plt Count 237 (140-440) K/mm3 Lymph % (Auto) 30.5 (13.4-35.0) % [place] % (Auto) 7.0 (0.0-7.3) % Eos % (Auto) 2.6 (0.0-4.3) % Baso % (Auto) 0.4 (0.0-1.8) % Lymph # (Auto) 1.4 (1.2-5.4) K/mm3 [place] # (Auto) 0.3 (0.0-0.8) K/mm3 Eos # (Auto) 0.1 (0.0-0.4) K/mm3 Baso # (Auto) 0.0 (0.0-0.1) K/mm3 Seg Neutrophils % 59.5 (40.0-70.0) % Seg Neutrophils # 2.7 (1.8-7.7) K/mm3 Sodium 140 (137-145) mmol/L Potassium 3.5 L (3.6-5.0) mmol/L Chloride 100.6 (98-107) mmol/L Carbon Dioxide 28 (22-30) mmol/L Anion Gap 15 mmol/L BUN 10 (9-20) mg/dL Creatinine 1.1 (0.8-1.3) mg/dL Estimated GFR > 60 ml/min BUN/Creatinine Ratio 9 % Glucose 124 H (75-100) mg/dL Calcium 9.0 (8.4-10.2) mg/dL Total Bilirubin 0.20 (0.1-1.2) mg/dL AST 18 (5-40) units/L ALT 20 (7-56) units/L Alkaline Phosphatase 52 (35-129) units/L Total Protein 6.3 (6.3-8.2) g/dL Albumin 3.8 L (3.9-5) g/dL Albumin/Globulin Ratio 1.5 % - Radiology Data [facility], [place] [address] [place] [address] Cat Scan Report Signed Patient: JENNIFER WILLETT MR#: [id number] 64 : 1950 Acct:[id number] Age/Sex: 70 / M ADM Date: 04/26/21 Loc: ED Attending Dr: Ordering Physician: GERALD COLLAZO MD Date of Service: 04/26/21 Procedure(s): CT abdomen pelvis w con Accession Number(s): [id number] cc: GERALD COLLAZO MD CT ABDOMEN AND PELVIS WITH CONTRAST HISTORY: abd p[ain with diarrhea OMNIPAQUE 300 100ML. COMPARISON: None. TECHNIQUE: CT images of the abdomen and pelvis were obtained following administration of intravenous contrast. All CT scans at this location are performed using CT dose reduction for ALARA by means of automated exposure control. CONTRAST: 100 ml of intravenous contrast administered. FINDINGS: Lungs/bones: Lung bases are clear Abdomen/pelvis: The liver, spleen, adrenal glands, pancreas, gallbladder and upper GI tract appear normal. Bilateral kidneys appear normal. Urinary bladder is contracted. Pancreatic duct dilatation is not as well-seen on today's examination. No peripancreatic fluid collection or inflammation. Aorta appears normal. Degenerative changes seen throughout spine. Appendix is not well seen however there is no evidence for appendicitis IMPRESSION: 1. Interval improvement in pancreatic ductal dilatation. No fluid collection or inflammation surrounding the pancreas. Pancreas appears normal. 2. No bowel obstruction is identified. Signer Name: Justice Duggan MD Signed: 04/26/2021 12:30 PM Workstation Name: [id number] - Medical Decision Making Patient CT shows no acute process that would explain the patient's diarrhea. Blood work is within normal limits. No drop in his hemoglobin suggestive of severe GI bleed over the past 3 weeks. Patient will be referred to GI. Started on Bentyl and Lomotil. Patient appears stable for discharge. Critical care attestation.: If time is entered above; I have spent that time in minutes in the direct care of this critically ill patient, excluding procedure time. ED Disposition Clinical Impression: Chronic diarrhea of unknown origin Disposition: DC- TO HOME OR SELFCARE Is pt being admited?: No Does the pt Need Aspirin: No Condition: Stable Instructions: Chronic Diarrhea Referrals: REDDY YAO MD [Primary Care Provider] - 3-5 Days [facility] [Provider Group] - 3-5 Days Time of Disposition: 13:09
[2021-04-26 15:47] VITALS: BP 120/67
== END 2021-04-26 15:47 | disposition home or self-care (01) ==
LOC: ED 10:24
DX: K52.9 Noninfective gastroenteritis and colitis, unspecified (principal); E78.5 Hyperlipidemia, unspecified; I10 Essential (primary) hypertension; M19.90 Unspecified osteoarthritis, unspecified site; F31.9 Bipolar disorder, unspecified; F41.9 Anxiety disorder, unspecified; Z79.899 Other long term (current) drug therapy; Z91.018 Allergy to other foods; Z86.69 Personal history of other diseases of the nervous system and sense organs; Z98.890 Other specified postprocedural states
CPT/HCPCS: 36415; 74177; 80053; 85025; 96360; 96361; 96372; 99284; J0500; J7030; Q9967

== ENCOUNTER 2021-05-02 02:22 | Emergency (ER) | payer MEDICARE ==
[2021-05-02 02:54] VITALS: BP 110/63
--- NOTE | 2021-05-02 12:41 | Emergency Department Report ---
ED Fall HPI - General Chief Complaint: Wound/Laceration Stated Complaint: LEFT THUMB LAC Time Seen by Provider: 05/02/21 12:24 Source: patient, EMS Mode of arrival: Wheelchair - History of Present Illness Initial Comments: 70-year-old male was brought to the ER today by EMS for evaluation after a fall. Patient has a history of dementia but he is currently awake alert oriented x3 and remembers the incident. He states that earlier this morning he was walking back from the bathroom to his room. He states that when he flipped a light switch, the lights did not come on. He states that sometimes his light bulb in the room can get loose. He states that he try to get back to the bed in the dark and while she was fumbling around trying to get to the bed he tripped and fell. He states that he struck his left hand on the bed frame and now has a laceration to the palmar surface of this left hand. He also states that he struck his left ribs and also his knees. He states that he does not recall hitting his head. He states that he did take a Tylenol for his pain but does not seem to help. He is not sure of his last tetanus shot. He currently denies any headache, dizziness, nausea, vomiting, neck pain, chest pain, abdominal pain, back pain or any other symptoms at this time. MD Complaint: fall -: Sudden - Related Data Home Medications Medication Instructions Recorded Confirmed Last Taken Ramelteon 8 mg PO DAILY 10/31/19 06/11/20 Unknown Trazodone HCl [traZODone] 150 mg PO DAILY 10/31/19 06/11/20 Unknown clonazePAM [Klonopin] 1 mg PO DAILY 10/31/19 06/11/20 Unknown propranoloL [Inderal] 10 mg PO DAILY 10/31/19 06/11/20 Unknown Donepezil HCl [Donepezil HCl Odt] 5 mg PO DAILY 06/11/20 06/11/20 Unknown Levothyroxine [Synthroid] 50 mcg PO DAILY 06/11/20 06/11/20 Unknown Mirtazapine [Remeron 30mg Rapdis] 30 mg PO DAILY 06/11/20 06/11/20 Unknown Previous Rx's Medication Instructions Recorded Last Taken Type Loratadine [Claritin] 10 mg PO DAILY #30 tablet 01/11/20 Unknown Rx Dicyclomine [Bentyl] 20 mg PO QID #14 tablet 04/26/21 Unknown Rx Diphenoxylate/Atropine [Lomotil] 1 tab PO Q8HR PRN #10 tablet 04/26/21 Unknown Rx HYDROcodone/APAP 5-325 [Rhome 1 each PO Q6HR PRN #12 tablet 05/02/21 Unknown Rx 5/325] Allergies Allergy/AdvReac Type Severity Reaction Status Date / Time apple AdvReac Diarrhea Verified 03/14/21 09:35 ED Review of Systems ROS: Stated complaint: LEFT THUMB LAC Other details as noted in HPI Comment: All other systems reviewed and negative Constitutional: denies: chills, fever Eyes: denies: eye pain, eye discharge, vision change ENT: denies: ear pain, throat pain, dental pain, hearing loss, epistaxis, conges tion Respiratory: denies: cough, shortness of breath, SOB with exertion, SOB at rest, wheezing Cardiovascular: other (Left rib pain). denies: chest pain, palpitations, edema, syncope, paroxysmal nocturnal dyspnea Endocrine: no symptoms reported Gastrointestinal: denies: abdominal pain, nausea, vomiting, diarrhea, constipation, hematemesis, hematochezia Genitourinary: denies: urgency, dysuria, frequency, hematuria, discharge Musculoskeletal: joint swelling, arthralgia. denies: back pain Neurological: denies: headache, weakness, numbness, paresthesias, confusion, abnormal gait, vertigo Psychiatric: denies: anxiety, depression Hematological/Lymphatic: denies: easy bleeding, easy bruising ED Past Medical Hx - Past Medical History Previous Medical History?: Yes Hx Hypertension: Yes Hx Arthritis: Yes (hands) Hx Seizures: Yes Hx Psychiatric Treatment: Yes Hx Dementia: Yes (Alzheimers, Lives [place] [facility]) Additional medical history: Bipolar, anxiety, hyperlipidemia, tremors, alcohol abuse, Chest pain - Surgical History Past Surgical History?: Yes Additional Surgical History: left leg with cast. - Social History Smoking Status: Never Smoker - Medications Home Medications: Home Medications Medication Instructions Recorded Confirmed Last Taken Type Ramelteon 8 mg PO DAILY 10/31/19 06/11/20 Unknown History Trazodone HCl [traZODone] 150 mg PO DAILY 10/31/19 06/11/20 Unknown History clonazePAM [Klonopin] 1 mg PO DAILY 10/31/19 06/11/20 Unknown History propranoloL [Inderal] 10 mg PO DAILY 10/31/19 06/11/20 Unknown History Loratadine [Claritin] 10 mg PO DAILY #30 tablet 01/11/20 06/11/20 Unknown Rx Donepezil HCl [Donepezil HCl Odt] 5 mg PO DAILY 06/11/20 06/11/20 Unknown History Levothyroxine [Synthroid] 50 mcg PO DAILY 06/11/20 06/11/20 Unknown History Mirtazapine [Remeron 30mg Rapdis] 30 mg PO DAILY 06/11/20 06/11/20 Unknown History Dicyclomine [Bentyl] 20 mg PO QID #14 tablet 04/26/21 Unknown Rx Diphenoxylate/Atropine [Lomotil] 1 tab PO Q8HR PRN #10 tablet 04/26/21 Unknown Rx HYDROcodone/APAP 5-325 [Rhome 1 each PO Q6HR PRN #12 tablet 05/02/21 Unknown Rx 5/325] ED Physical Exam - General Limitations: Physical Limitation General appearance: alert, in no apparent distress - Head Head exam: Present: atraumatic, normocephalic, normal inspection - Eye Eye exam: Present: normal appearance, PERRL, EOMI Pupils: Present: normal accommodation - ENT ENT exam: Present: normal exam, mucous membranes moist, TM's normal bilaterally - Neck Neck exam: Present: normal inspection, full ROM. Absent: tenderness - Respiratory Respiratory exam: Present: normal lung sounds bilaterally, chest wall tenderness (Moderate tenderness to palpation to the left lateral mid to lower rib area. No crepitus, deformity, bruising or swelling noted.). Absent: respiratory distress, wheezes, rales, rhonchi - Cardiovascular Cardiovascular Exam: Present: regular rate, normal rhythm, normal heart sounds - GI/Abdominal GI/Abdominal exam: Present: soft. Absent: distended, tenderness, guarding, rebound - Extremities Exam Extremities exam: Present: full ROM, tenderness (Tenderness to palpation to the anterior aspect of both knees with some mild erythema/bruising noted . No apparent swelling, joint effusion and he has full range of motion of both knees) - Expanded Upper Extremity Exam Left Hand Wrist exam: Present: full ROM, tenderness (Mainly along the laceration to the hypothenar eminence of the left hand), swelling, laceration (Approximately 5 cm superficial laceration noted along the thenar eminence of the left hand. No active bleeding no foreign body). Absent: abrasion, ecchymosis, deformity, crepidus, dislocation, erythema, amputation, nail avulsion, subungual hematoma Neurosensory exam: Present: radial nerve intact, ulnar nerve intact, median nerve intact Vascular: Present: normal capillary refill. Absent: vascular compromise - Back Exam Back exam: Present: normal inspection, full ROM - Neurological Exam Neurological exam: Present: alert, oriented X3, CN II-XII intact - Psychiatric Psychiatric exam: Present: normal affect, normal mood - Skin Skin exam: Present: intact ED Course Vital Signs 05/02/21 02:53 Temperature 97.7 F Pulse Rate 50 L Respiratory 16 Rate Blood Pressure 110/63 [Right] O2 Sat by Pulse 97 Oximetry - Laceration /Wound Repair Left Palm Hand Wound Location: upper extremity (Left upper extremity ) Wound's Depth, Shape: linear, flap Wound Explored: clean Betadine Prep?: Yes Anesthesia: 1% Lidocaine Volume Anesthetic (ccs): 9 Wound Debrided: minimal Wound Repaired With: sutures Suture Size/Type: 4:0 (7) Layer Closure?: No Sterile Dressing Applied?: Yes ED Medical Decision Making - Lab Data Result diagrams: 05/02/21 13:25 05/02/21 13:25 - Radiology Data Radiology results: report reviewed Patient: JENNIFER WILLETT MR#: [id number] 64 : 1950 Acct:[id number] Age/Sex: 70 / M ADM Date: 05/02/21 Loc: ED Attending Dr: Ordering Physician: MARINA FENG Date of Service: 05/02/21 Procedure(s): XR hand 3+V LT Accession Number(s): [id number] cc: MARINA FENG Fluoro Time In Minutes: LEFT HAND, 3 VIEWS INDICATION / CLINICAL INFORMATION: fall/hand lac. COMPARISON: None available. FINDINGS: No fracture or malalignment is noted. No abnormal soft tissue abnormality. Mild degenerative changes are present throughout the IP joints of the finger and thumb as well as in the thumb carpometacarpal joint. IMPRESSION: No acute osseous abnormality. Signer Name: Mamta Santoro MD Signed: 05/02/2021 1:52 PM Workstation Name: [id number] Transcribed By: JR Dictated By: Mamta Santoro MD Electronically Authenticated By: Mamta Santoro MD Signed Date/Time: 05/02/21 1352 DD/ 1351 TD/TT: Patient: JENNIFER WILLETT MR#: [id number] 64 : 1950 Acct:[id number] Age/Sex: 70 / M ADM Date: 05/02/21 Loc: ED Attending Dr: Ordering Physician: MARINA FENG Date of Service: 05/02/21 Procedure(s): XR knee BILAT 3V Accession Number(s): [id number] cc: MARINA FENG Fluoro Time In Minutes: BILATERAL KNEES, 6 VIEWS INDICATION / CLINICAL INFORMATION: fall/injury. COMPARISON: None available. FINDINGS: Right knee: Moderate degenerative changes are seen within the right knee, especially in the medial joint compartment. No fracture, malalignment, or joint effusion is noted. Vascular calcifications are noted. Left knee: Moderate degenerative changes are present in the left knee, most notable in the medial joint compartment and the patellofemoral compartment. No joint effusion, fracture, or malalignment is noted. Vascular calcifications are noted IMPRESSION: Moderate degenerative change bilaterally consistent with osteo arthritis. No evidence for fracture or malalignment. Extensive atherosclerotic plaque. Signer Name: Mamta Santoro MD Signed: 05/02/2021 1:44 PM Workstation Name: [id number] Patient: JENNIFER WILLETT MR#: [id number] 64 : 1950 Acct:[id number] Age/Sex: 70 / M ADM Date: 05/02/21 Loc: ED Attending Dr: Ordering Physician: MARINA FENG Date of Service: 05/02/21 Procedure(s): CT abdomen pelvis w con Accession Number(s): [id number] cc: MARINA FENG CT abdomen pelvis w con INDICATION / CLINICAL INFORMATION: fall/trauma/left lower rib pain/flank pain OMNI 300 100 ML. TECHNIQUE: Axial CT imaging of abdomen and pelvis was obtained with IV contrast. Coronal and sagittal reformatted imaging obtained and reviewed. All CT scans at this location are performed using CT dose reduction for ALARA by means of automated exposure control. COMPARISON: Prior CT abdomen/pelvis 04/26/2021 FINDINGS: CT abdomen with contrast demonstrates grossly normal appearance of the liver, spleen, pancreas, kidneys, and adrenal glands. Gallbladder is grossly unremarkable. No biliary dilatation. No pancreatic duct dilatation is noted on today's exam. CT pelvis with contrast demonstrates mild enlargement of the prostate gland. No pelvic mass, free fluid, or focal inflammatory changes noted. A normal appendix is present in the right lower quadrant. GI tract is within normal limits. Visualized lung bases demonstrate some minimal basilar atelectasis. No visible pneumothorax or hemothorax. Visualized osseous structures demonstrate nondisplaced fractures of the ninth and 10th lateral ribs. Severe degenerative changes are seen throughout the lumbar spine. No additional fractures identified. IMPRESSION: 1. Nondisplaced fractures of the lateral left ninth and 10th ribs. 2. No acute finding within the abdomen or pelvis. Signer Name: Mamta Santoro MD Signed: 05/02/2021 2:54 PM Workstation Name: [id number] Transcribed By: JR Dictated By: Mamta Santoro MD Electronically Authenticated By: Mamta Santoro MD Signed Date/Time: 05/02/21 1454 DD/ 1448 TD/TT: Patient: JENNIFER WILLETT MR#: [id number] 64 : 1950 Acct:[id number] Age/Sex: 70 / M ADM Date: 05/02/21 Loc: ED Attending Dr: Ordering Physician: MARINA FENG Date of Service: 05/02/21 Procedure(s): CT head/brain wo con Accession Number(s): [id number] cc: MARINA FENG CT HEAD WITHOUT CONTRAST INDICATION / CLINICAL INFORMATION: fall. TECHNIQUE: All CT scans at this location are performed using CT dose reduction for ALARA by means of automated exposure control. COMPARISON: Head CT 02/24/2020 FINDINGS: HEMORRHAGE: No evidence of intracranial hemorrhage or extra-axial fluid collection. EXTRA-AXIAL SPACES: Cortical sulci and sylvian fissures are mildly enlarged reflecting a degree of parenchymal volume loss which is within normal limits for the patient's age 70 years. Basilar cisterns have an unremarkable appearance. VENTRICULAR SYSTEM: The third and lateral ventricles are enlarged out of proportion to the cortical sulci. This probably reflects the presence of central greater than cortical atrophy. These findings are stable compared to prior study. CEREBRAL PARENCHYMA: Periventricular and deep white matter lucency is observed. This is probably secondary to microvascular ischemic change. There is no indication of recent infarction. No areas of encephalomalacia are identified. MIDLINE SHIFT OR HERNIATION: There is no mass effect. CEREBELLUM / BRAINSTEM: Brainstem has an unremarkable appearance. Moderate cerebellar atrophy is demonstrated. MIDLINE STRUCTURES:No abnormalities of the pituitary gland or pineal region are observed INTRACRANIAL VESSELS:Calcified atherosclerotic plaque is present along the course of the cavernous segments of both internal carotid arteries. ORBITS: visualized portions of the orbits have an unremarkable appearance. SOFT TISSUES of HEAD: No significant abnormality. CALVARIUM: Evaluation of bone windows reveals no abnormalities. PARANASAL SINUSES / MASTOID AIR CELLS: Opacification of the right maxillary sinus, multiple anterior and mid right ethmoid air cells and the right frontal sinus is observed. This pattern of sinus disease indicates obstruction of the air passageways of the right OM U with resultant right frontal, ethmoid and maxillary sinusitis. These findings are stable in comparison to previous study 02/24/2020. Left-sided paranasal sinuses and right sphenoid sinus are clear. Opacification of multiple mastoid air cells is observed on the right secondary to mastoid effusions versus mastoiditis. This has developed since 02/24/2020. ADDITIONAL FINDINGS: None. IMPRESSION: 1. Central greater than cortical parenchymal volume loss. 2. No acute intracranial abnormality. 3. Right frontal, ethmoid and maxillary sinusitis. These are stable findings compared to prior study. 4. Interval development of opacification of multiple right-sided mastoid air cells. Consider possible mastoiditis. Signer Name: Blaine Haas MD Signed: 05/02/2021 2:43 PM Workstation Name: [id number] Transcribed By: Dictated By: Blaine Haas MD Electronically Authenticated By: Blaine Haas MD Signed Date/Time: 05/02/21 1443 DD/ 1439 TD/TT: Patient: JENNIFER WILLETT MR#: [id number] 64 : 1950 Acct:[id number] Age/Sex: 70 / M ADM Date: 05/02/21 Loc: ED Attending Dr: Ordering Physician: MARINA FENG Date of Service: 05/02/21 Procedure(s): CT chest w con Accession Number(s): [id number] cc: MARINA FENG CT chest w con INDICATION / CLINICAL INFORMATION: fall/trauma/left rib pain OMNI 300 100 ML. TECHNIQUE: Axial CT imaging of the chest was obtained with IV contrast. Coronal and sagittal reformatted imaging obtained and reviewed. All CT scans at this location are performed using CT dose reduction for ALARA by means of automated exposure control. COMPARISON: Prior CTA chest 10/31/2019 FINDINGS: CT chest with contrast demonstrates normal appearance of the mediastinum and great vessels. Thoracic aorta is intact and without dissection or aneurysm. Heart size is mildly enlarged. No pericardial effusion. No mediastinal or hilar mass or adenopathy noted. The lungs are both well expanded. There is some mild atelectasis in the left lower lobe most likely secondary to splinting from left lateral rib fractures. No pneumothorax or hemothorax is noted. No evidence of pulmonary contusion. The visualized osseous structures appear grossly intact. There is suggestion of left first rib fracture at the costo chondral junction anteriorly. Please correlate with physical exam. There were visible nondisplaced fractures of the lateral ninth and 10th ribs on CT abdomen. No additional fractures noted. IMPRESSION: 1. Mild left lower lobe atelectasis most likely due to splinting. The lungs are otherwise clear. 2. Nondisplaced fractures of the ninth and 10th lateral left ribs, seen best on CT abdomen. 3. Lucency is seen in the left first rib near the costosternal junction. This may just represent degenerative change, but is concerning for possibility of fracture.. Please correlate with physical exam to see if patient is physically symptomatic in the anterior left first rib. Signer Name: Mamta Santoro MD Signed: 05/02/2021 3:03 PM Workstation Name: [id number] Transcribed By: Dictated By: Mamta Santoro MD Electronically Authenticated By: Mamta Santoro MD Signed Date/Time: 07/31/21 1503 - Medical Decision Making X-ray of the left hand, and bilateral knee shows nothing acute. CT of the head shows nothing acute. CT of the abdomen pelvis with IV contrast shows rib fractures of the ninth and 10th rib on the left side but otherwise no other acute abnormalities. CT chest with IV contrast shows - Mild left lower lobe atelectasis most likely due to splinting. The lungs are otherwise clear. Nondisplaced fractures of the ninth and 10th lateral left ribs, seen best on CT abdomen. Lucency is seen in the left first rib near the costosternal junction. This may just represent degenerative change, but is concerning for possibility of fracture. Please correlate with physical exam to see if patient is physically symptomatic in the anterior left first rib. On exam most of patient's tenderness was to his left lateral ribs. He had no bruising, swelling or crepitus or flail chest noted on exam. Patient currently resting in the bed comfortably. He has been very talkative throughout the stay. He is not a significant pain distress. He also is not in any respiratory distress. He is awake alert oriented x3 with a GCS of 15. He has no focal neurological deficits and he has a normal gait. His vital signs are stable. He has had laceration was repaired by me. See procedure note for detail. Patient was given an incentive spirometer with instructions as to how to use it. He was given strict instructions not to wrap his ribs. There is no indication for admission or transfer or any additional testing at this time. Patient will be discharged home with medications for pain to help with pain control. Wound care discussed with patient. Patient expressed understanding of instructions and agree with plan. Patient was stable at time of discharge. Critical care attestation.: If time is entered above; I have spent that time in minutes in the direct care of this critically ill patient, excluding procedure time. ED Disposition Clinical Impression: Left rib fracture, Knee contusion, Hand contusion, Hand laceration Disposition: DC-01 TO HOME OR SELFCARE Is pt being admited?: No Does the pt Need Aspirin: No Condition: Stable Instructions: Contusion, Laceration Care, Adult, Rib Fracture, [id number] Additional Instructions: Take the pain medication as prescribed. Use incentive spirometer as instructed. Do not wrap your ribs with any sheets, belts or any braces. Keep the wound clean daily with soap and water. Do not use peroxide or alcohol. Wash briefly and then dry well and after you dry apply a thin layer of Neosporin and cover. Do this daily until its time to have the stitches removed which will be in the next 10 days. Return to the ER sooner if there is any signs and symptoms of infection such as pus drainage, increasing redness or pain. You can follow-up with your primary care doctor to have the stitches removed. Prescriptions: HYDROcodone/APAP 5-325 [Rhome 5/325] 1 each PO Q6HR PRN #12 tablet PRN Reason: Pain Referrals: PRIMARY CARE, [Primary Care Provider] - 3-5 Days Time of Disposition: 16:38
[2021-05-02] MEDS ORDERED: LIDOCAINE (1%) 10 MG/1 ML VIAL 20 ML MDV INFILTRATI ONE (12:42)
[2021-05-02] MEDS ORDERED: TETANUS,DIPH,PERTUSS(ACELL) VACCINE 0.5 ML SYRINGE IM ONE (12:42)
[2021-05-02] MEDS ORDERED: HYDROcodone/ACETAMINOPHEN 5-325 MG TAB PO ONE (12:42)
--- NOTE | 2021-05-02 13:48 | XRay Report ---
BILATERAL KNEES, 6 VIEWS INDICATION / CLINICAL INFORMATION: fall/injury. COMPARISON: None available. FINDINGS: Right knee: Moderate degenerative changes are seen within the right knee, especially in the medial annalee int compartment. No fracture, malalignment, or joint effusion is noted. Vascular calcifications are n oted. Left knee: Moderate degenerative changes are present in the left knee, most notable in the medial anastasiia nt compartment and the patellofemoral compartment. No joint effusion, fracture, or malalignment is no paco. Vascular calcifications are noted IMPRESSION: Moderate degenerative change bilaterally consistent with osteoarthritis. No evidence for fracture or malalignment. Extensive atherosclerotic plaque. Signer Name: Mamta Santoro MD Signed: 05/02/2021 1:44 PM Workstation Name: [id number]
--- NOTE | 2021-05-02 13:57 | XRay Report ---
LEFT HAND, 3 VIEWS INDICATION / CLINICAL INFORMATION: fall/hand lac. COMPARISON: None available. FINDINGS: No fracture or malalignment is noted. No abnormal soft tissue abnormality. Mild degenerative changes are present throughout the IP joints of the finger and thumb as well as in the thumb carpometacarpal joint. IMPRESSION: No acute osseous abnormality. Signer Name: Mamta Santoro MD Signed: 05/02/2021 1:52 PM Workstation Name: [id number]
[2021-05-02 14:04] LABS: Basophils % (Auto) 0.4 % (0.0-1.8); Eosinophils # (Auto) 0.2 K/mm3 (0.0-0.4); Eosinophils % (Auto) 2.5 % (0.0-4.3); Hematocrit 46.3 % (35.5-45.6); Hemoglobin 15.7 gm/dl (11.8-15.2); Lymphocytes # (Auto) 1.5 K/mm3 (1.2-5.4); Lymphocytes % (Auto) 19.3 % (13.4-35.0); Mean Corpuscular HGB Conc 34 % (32-34); Mean Corpuscular Volume 92 fl (84-94); Monocytes # (Auto) 0.5 K/mm3 (0.0-0.8); Platelet Count 250 K/mm3 (140-440); Red Blood Count 5.05 M/mm3 (3.65-5.03); Red Cell Distribution Width 14.2 % (13.2-15.2)
[2021-05-02 14:19] LABS: Alanine Aminotransferase 15 units/L (7-56); Albumin 4.7 g/dL (3.9-5); BUN/Creatinine Ratio 10; Blood Urea Nitrogen 9 mg/dL (9-20); Calcium 9.8 mg/dL (8.4-10.2); Hemolysis Index 3
--- NOTE | 2021-05-02 14:47 | Cat Scan Report ---
CT HEAD WITHOUT CONTRAST INDICATION / CLINICAL INFORMATION: fall. TECHNIQUE: All CT scans at this location are performed using CT dose reduction for ALARA by means of automated e xposure control. COMPARISON: Head CT 02/24/2020 FINDINGS: HEMORRHAGE: No evidence of intracranial hemorrhage or extra-axial fluid collection. EXTRA-AXIAL SPACES: Cortical sulci and sylvian fissures are mildly enlarged reflecting a degree of pa renchymal volume loss which is within normal limits for the patient's age 70 years. Basilar cisterns have an unremarkable appearance. VENTRICULAR SYSTEM: The third and lateral ventricles are enlarged out of proportion to the cortical s ulci. This probably reflects the presence of central greater than cortical atrophy. These findings ar e stable compared to prior study. CEREBRAL PARENCHYMA: Periventricular and deep white matter lucency is observed. This is probably seco ndary to microvascular ischemic change. There is no indication of recent infarction. No areas of ence phalomalacia are identified. MIDLINE SHIFT OR HERNIATION: There is no mass effect. CEREBELLUM / BRAINSTEM: Brainstem has an unremarkable appearance. Moderate cerebellar atrophy is demo nstrated. MIDLINE STRUCTURES:No abnormalities of the pituitary gland or pineal region are observed INTRACRANIAL VESSELS:Calcified atherosclerotic plaque is present along the course of the cavernous se gments of both internal carotid arteries. ORBITS: visualized portions of the orbits have an unremarkable appearance. SOFT TISSUES of HEAD: No significant abnormality. CALVARIUM: Evaluation of bone windows reveals no abnormalities. PARANASAL SINUSES / MASTOID AIR CELLS: Opacification of the right maxillary sinus, multiple anterior and mid right ethmoid air cells and the right frontal sinus is observed. This pattern of sinus diseas e indicates obstruction of the air passageways of the right OM U with resultant right frontal, ethmoi d and maxillary sinusitis. These findings are stable in comparison to previous study 02/24/2020. Left- sided paranasal sinuses and right sphenoid sinus are clear. Opacification of multiple mastoid air jacob ls is observed on the right secondary to mastoid effusions versus mastoiditis. This has developed sin ce 02/24/2020. ADDITIONAL FINDINGS: None. IMPRESSION: 1. Central greater than cortical parenchymal volume loss. 2. No acute intracranial abnormality. 3. Right frontal, ethmoid and maxillary sinusitis. These are stable findings compared to prior study. 4. Interval development of opacification of multiple right-sided mastoid air cells. Consider possible mastoiditis. Signer Name: Blaine Haas MD Signed: 05/02/2021 2:43 PM Workstation Name: [id number]
--- NOTE | 2021-05-02 14:58 | Cat Scan Report ---
CT abdomen pelvis w con INDICATION / CLINICAL INFORMATION: fall/trauma/left lower rib pain/flank pain OMNI 300 100 ML. TECHNIQUE: Axial CT imaging of abdomen and pelvis was obtained with IV contrast. Coronal and sagittal reformatte d imaging obtained and reviewed. All CT scans at this location are performed using CT dose reduction for ALARA by means of automated exposure control. COMPARISON: Prior CT abdomen/pelvis 04/26/2021 FINDINGS: CT abdomen with contrast demonstrates grossly normal appearance of the liver, spleen, pancreas, kidne ys, and adrenal glands. Gallbladder is grossly unremarkable. No biliary dilatation. No pancreatic arabella t dilatation is noted on today's exam. CT pelvis with contrast demonstrates mild enlargement of the prostate gland. No pelvic mass, free flu id, or focal inflammatory changes noted. A normal appendix is present in the right lower quadrant. GI tract is within normal limits. Visualized lung bases demonstrate some minimal basilar atelectasis. No visible pneumothorax or hemoth orax. Visualized osseous structures demonstrate nondisplaced fractures of the ninth and 10th lateral ribs. Severe degenerative changes are seen throughout the lumbar spine. No additional fractures identified. IMPRESSION: 1. Nondisplaced fractures of the lateral left ninth and 10th ribs. 2. No acute finding within the abdomen or pelvis. Signer Name: Mamta Santoro MD Signed: 05/02/2021 2:54 PM Workstation Name: [id number]
--- NOTE | 2021-05-02 15:08 | Cat Scan Report ---
CT chest w con INDICATION / CLINICAL INFORMATION: fall/trauma/left rib pain OMNI 300 100 ML. TECHNIQUE: Axial CT imaging of the chest was obtained with IV contrast. Coronal and sagittal reformatted imaging obtained and reviewed. All CT scans at this location are performed using CT dose reduction for ALAR A by means of automated exposure control. COMPARISON: Prior CTA chest 10/31/2019 FINDINGS: CT chest with contrast demonstrates normal appearance of the mediastinum and great vessels. Thoracic aorta is intact and without dissection or aneurysm. Heart size is mildly enlarged. No pericardial eff usion. No mediastinal or hilar mass or adenopathy noted. The lungs are both well expanded. There is some mild atelectasis in the left lower lobe most likely s econdary to splinting from left lateral rib fractures. No pneumothorax or hemothorax is noted. No tash dence of pulmonary contusion. The visualized osseous structures appear grossly intact. There is suggestion of left first rib fractu re at the costo chondral junction anteriorly. Please correlate with physical exam. There were visible nondisplaced fractures of the lateral ninth and 10th ribs on CT abdomen. No additional fractures not ed. IMPRESSION: 1. Mild left lower lobe atelectasis most likely due to splinting. The lungs are otherwise clear. 2. Nondisplaced fractures of the ninth and 10th lateral left ribs, seen best on CT abdomen. 3. Lucency is seen in the left first rib near the costosternal junction. This may just represent dege nerative change, but is concerning for possibility of fracture.. Please correlate with physical exam to see if patient is physically symptomatic in the anterior left first rib. Signer Name: Mamta Santoro MD Signed: 05/02/2021 3:03 PM Workstation Name: [id number]
[2021-05-02] MEDS ORDERED: NEOMY 3.5 MG/BACIT 400 UNITS/POLY B 5000 UNITS/GM OINT PACKET TP ONE (16:34)
== END 2021-05-02 18:12 | disposition home or self-care (01) ==
LOC: ED 02:22
DX: S22.42XA Multiple fractures of ribs, left side, initial encounter for closed fracture (principal); S61.012A Laceration without foreign body of left thumb without damage to nail, initial encounter; S80.01XA Contusion of right knee, initial encounter; S80.02XA Contusion of left knee, initial encounter; F31.9 Bipolar disorder, unspecified; F41.9 Anxiety disorder, unspecified; E78.5 Hyperlipidemia, unspecified; I10 Essential (primary) hypertension; M19.90 Unspecified osteoarthritis, unspecified site; F03.90 Unspecified dementia, unspecified severity, without behavioral disturbance, psychotic disturbance, mood disturbance, and anxiety; Z98.890 Other specified postprocedural states; Z79.899 Other long term (current) drug therapy; Z91.018 Allergy to other foods; Z86.69 Personal history of other diseases of the nervous system and sense organs; W18.30XA Fall on same level, unspecified, initial encounter; Y93.89 Activity, other specified; Y92.89 Other specified places as the place of occurrence of the external cause; Y99.8 Other external cause status
CPT/HCPCS: 12002; 36415; 70450; 71260; 73130; 73562; 74177; 80053; 83690; 85025; 90471; 90715; 99284; A6250; Q9967

== ENCOUNTER 2021-10-12 07:42 | Emergency (ER) | payer MEDICARE ==
--- NOTE | 2021-10-12 07:52 | Emergency Department Report ---
ED General Adult HPI - General Chief complaint: Fall Stated complaint: FALL PUI?: No Time Seen by Provider: 10/12/21 07:48 Source: patient, EMS (Verbal report received from emergency medical services. EMS documentation not available at time of chart dictation ), RN notes reviewed, old records reviewed Mode of arrival: Stretcher Limitations: Other (Patient is demented and a poor historian) - History of Present Illness Initial comments: The patient was evaluated in the emergency department for symptoms described in the history of present illness. He/she was evaluated in the context of the global COVID-19 pandemic, which necessitated consideration that the patient might be at risk for infection with the virus that causes COVID-19. Institutional protocols and algorithms that pertain to the evaluation of patients at risk for COVID-19 are in a state of rapid change based on information released by regulatory bodies including the CDC and federal and state organizations. These policies and algorithms were followed during the patient's care in the emergency department. Please note that these policies, procedures and recommendations changed on a rapid basis. The patient is a 70-year-old gentleman. His past medical history includes dementia, hypertension, thyroid derangement, anxiety, possible seizures, and also being hard of hearing. The patient is brought to the hospital today by emergency medical services with a request for medical clearance. History obtained from EMS. They state that this patient resides in a group facility, and had a fall, which they believe is unwitnessed. They report that the patient is ambulatory upon their assessment and has stable vital signs. They further report that the patient endorsed no complaints to them in the field. The patient himself does not recall falling. He denies headache, neck pain, chest pain, abdominal pain or shortness of breath. Then, after completion of his initially history and physical, he complains of left-sided chest wall pain. When asked to further elaborate, the patient indicates that he is now not having chest pain. He also stated that he was having diarrhea. He cannot further elaborate. The patient is demented and a poor historian. He is not accompanied by friends or family at this time for collateral information or additional history. The patient himself does not describe the qualitative nature of his symptoms, except as noted, does not describe exacerbating factors relieving factors or aggravating factors. As per EMS verbal report, it is believed that the patient fell on or around 4:00 AM this morning. -: unknown - Related Data Home Medications Medication Instructions Recorded Confirmed Last Taken Ramelteon 8 mg PO DAILY 10/31/19 06/11/20 Unknown Trazodone HCl [traZODone] 150 mg PO DAILY 10/31/19 06/11/20 Unknown clonazePAM [Klonopin] 1 mg PO DAILY 10/31/19 06/11/20 Unknown propranoloL [Inderal] 10 mg PO DAILY 10/31/19 06/11/20 Unknown Donepezil HCl [Donepezil HCl Odt] 5 mg PO DAILY 06/11/20 06/11/20 Unknown Levothyroxine [Synthroid] 50 mcg PO DAILY 06/11/20 06/11/20 Unknown Mirtazapine [Remeron 30mg Rapdis] 30 mg PO DAILY 06/11/20 06/11/20 Unknown Previous Rx's Medication Instructions Recorded Last Taken Type Loratadine [Claritin] 10 mg PO DAILY #30 tablet 01/11/20 Unknown Rx Dicyclomine [Bentyl] 20 mg PO QID #14 tablet 04/26/21 Unknown Rx Diphenoxylate/Atropine [Lomotil] 1 tab PO Q8HR PRN #10 tablet 04/26/21 Unknown Rx HYDROcodone/APAP 5-325 [[place] 1 each PO Q6HR PRN #12 tablet 05/02/21 Unknown Rx 5/325] Allergies Allergy/AdvReac Type Severity Reaction Status Date / Time apple AdvReac Diarrhea Verified 03/14/21 09:35 ED Review of Systems ROS: Stated complaint: FALL Other details as noted in HPI Comment: Unobtainable due to pts medical conditions (Patient is demented and a poor historian) Constitutional: denies: fever ENT: denies: epistaxis Respiratory: denies: cough Cardiovascular: as per HPI Gastrointestinal: diarrhea. denies: abdominal pain Genitourinary: denies: dysuria Musculoskeletal: denies: back pain Neurological: confusion ED Past Medical Hx - Past Medical History Hx Hypertension: Yes Hx Arthritis: Yes (hands) Hx Seizures: Yes Hx Psychiatric Treatment: Yes Hx Dementia: Yes (Alzheimers, Lives [facility]) Additional medical history: Bipolar, anxiety, hyperlipidemia, tremors, alcohol abuse, Chest pain - Surgical History Additional Surgical History: left leg with cast. - Social History Smoking Status: Never Smoker - Medications Home Medications: Home Medications Medication Instructions Recorded Confirmed Last Taken Type Ramelteon 8 mg PO DAILY 10/31/19 06/11/20 Unknown History Trazodone HCl [traZODone] 150 mg PO DAILY 10/31/19 06/11/20 Unknown History clonazePAM [Klonopin] 1 mg PO DAILY 10/31/19 06/11/20 Unknown History propranoloL [Inderal] 10 mg PO DAILY 10/31/19 06/11/20 Unknown History Loratadine [Claritin] 10 mg PO DAILY #30 tablet 01/11/20 06/11/20 Unknown Rx Donepezil HCl [Donepezil HCl Odt] 5 mg PO DAILY 06/11/20 06/11/20 Unknown History Levothyroxine [Synthroid] 50 mcg PO DAILY 06/11/20 06/11/20 Unknown History Mirtazapine [Remeron 30mg Rapdis] 30 mg PO DAILY 06/11/20 06/11/20 Unknown Hi story Dicyclomine [Bentyl] 20 mg PO QID #14 tablet 04/26/21 Unknown Rx Diphenoxylate/Atropine [Lomotil] 1 tab PO Q8HR PRN #10 tablet 04/26/21 Unknown Rx HYDROcodone/APAP 5-325 [[place] 1 each PO Q6HR PRN #12 tablet 05/02/21 Unknown Rx 5/325] ED Physical Exam - General Limitations: Other (Dementia and baseline confusion) General appearance: in no apparent distress - Head Head exam: Present: atraumatic, normocephalic - Eye Eye exam: Present: normal appearance, PERRL, EOMI. Absent: nystagmus - ENT ENT exam: Present: normal exam, normal orophraynx, mucous membranes moist, TM's normal bilaterally, normal external ear exam, other (There is no mastoid tenderness. There is no nasal septal hematoma) - Neck Neck exam: Present: normal inspection, full ROM. Absent: tenderness, meningismus - Respiratory Respiratory exam: Present: normal lung sounds bilaterally. Absent: respiratory distress, wheezes, rales, rhonchi, stridor, decreased breath sounds - Cardiovascular Cardiovascular Exam: Present: regular rate, normal rhythm, normal heart sounds. Absent: bradycardia, tachycardia, irregular rhythm, systolic murmur, diastolic murmur, rubs, gallop - GI/Abdominal GI/Abdominal exam: Present: soft. Absent: distended, tenderness, guarding, rebound, rigid, pulsatile mass - Rectal Rectal exam: Present: deferred - Extremities Exam Extremities exam: Present: full ROM, other (2+ pulses noted in the bilateral upper and lower extremities. There is no palpable cord. negative Homans sign. Muscular compartments are soft. The pelvis is stable. 2+ pulses noted in the bilateral femoral distribution). Absent: normal inspection (There is an abrasion noted to the right anterior knee), tenderness, calf tenderness - Back Exam Back exam: Present: normal inspection. Absent: tenderness, CVA tenderness (R), CVA tenderness (L), paraspinal tenderness, vertebral tenderness - Neurological Exam Neurological exam: Present: alert (The patient is alert to name and follows commands. The patient has baseline dementia. The patient knows that he is at a hospital.), other (No facial droop. Tongue midline. Extraocular movements intact bilaterally. Facial sensation intact to light touch in V1, V2, V3 distribution bilaterally. 5 and a 5 strength in 4 extremities. Sensation intact to light touch in 4 extremities.) - Psychiatric Psychiatric exam: Present: flat affect - Skin Skin exam: Present: warm, abrasion (Right anterior knee abrasion) ED Course Vital Signs 10/12/21 11:12 Temperature 97.4 F L Pulse Rate 73 Respiratory 18 Rate Blood Pressure 118/71 [Left] O2 Sat by Pulse 98 Oximetry - Reevaluation(s) Reevaluation #1: 10/12/21 09:31 Differential diagnosis, including but not limited to: Fall, pneumonia, urinary tract infection, electrolyte derangement, intracranial injury, cervical spine injury, anterior knee abrasion, medical clearance Assessment and plan: 70-year-old gentleman who was referred to the emergency room for medical clearance after an unwitnessed fall. His physical examination is unremarkable with the exception of dementia, and anterior knee abrasion. Given dementia, poor baseline mentation, unable to clear cervical spine, so we will obtain CT scan of the brain, and CT scan of the cervical spine. Laboratory studies are nonactionable at this time. X-ray the chest, x-ray the lower extremities, EKG, urinalysis pending. Appears that he is up-to-date with his tetanus vaccination series. Reassess after acquisition of the aforementioned radiographic studies and adjuncts Reevaluation #2: 10/12/21 09:34 The patient is not unstable. I did not have this discussion with the technologist. This documentation is not accurate. This patient is stable for acquisition of CT scan. 10/12/21 08:26 - Radiology Dept. Note by PREETI ROD Acct Num: [id number] : 1950 Patient Age: 70 Per MD hold on CT. Pt too unstable. 0827. JS 10/12/21 12:27 Patient resting comfortably in stretcher, and in no acute distress. Laboratory studies unremarkable and nonactionable. CT scan and x-ray showed no acute or emergent findings. Patient reevaluated multiple times, resting comfortably, no acute distress. He is suitable for discharge at this time. ED Medical Decision Making - Lab Data Result diagrams: 10/12/21 08:15 10/12/21 08:10 Lab Results 10/12/21 10/12/21 10/12/21 Range/Units 08:10 08:10 08:10 WBC (4.5-11.0) K/mm3 RBC (3.65-5.03) M/mm3 Hgb (11.8-15.2) gm/dl Hct (35.5-45.6) % MCV (84-94) fl MCH (28-32) pg MCHC (32-34) % RDW (13.2-15.2) % Plt Count (140-440) K/mm3 Lymph % (Auto) (13.4-35.0) % [place] % (Auto) (0.0-7.3) % Eos % (Auto) (0.0-4.3) % Baso % (Auto) (0.0-1.8) % Lymph # (Auto) (1.2-5.4) K/mm3 [place] # (Auto) (0.0-0.8) K/mm3 Eos # (Auto) (0.0-0.4) K/mm3 Baso # (Auto) (0.0-0.1) K/mm3 Seg Neutrophils % (40.0-70.0) % Seg Neutrophils # (1.8-7.7) K/mm3 PT 12.8 (12.2-14.9) Sec. INR 0.87 (0.87-1.13) Sodium 139 (137-145) mmol/L Potassium 4.6 (3.6-5.0) mmol/L Chloride 99.1 (98-107) mmol/L Carbon Dioxide 26 (22-30) mmol/L Anion Gap 19 mmol/L BUN 21 H (9-20) mg/dL Creatinine 1.2 (0.8-1.3) mg/dL Estimated GFR 60 ml/min BUN/Creatinine Ratio 18 % Glucose 85 (75-100) mg/dL Calcium 9.5 (8.4-10.2) mg/dL Total Bilirubin 0.20 (0.1-1.2) mg/dL AST 13 (5-40) units/L ALT 14 (7-56) units/L Alkaline Phosphatase 52 (35-129) units/L Troponin T < 0.010 (0.00-0.029) ng/mL Total Protein 6.8 (6.3-8.2) g/dL Albumin 4.0 (3.9-5) g/dL Albumin/Globulin Ratio 1.4 % Salicylates (2.8-20.0) mg/dL Acetaminophen (10.0-30.0) ug/mL Plasma/Serum Alcohol < 0.01 (0-0.07) % 10/12/21 10/12/21 10/12/21 Range/Units 08:10 08:10 08:15 WBC 5.3 (4.5-11.0) K/mm3 RBC 4.46 (3.65-5.03) M/mm3 Hgb 13.7 (11.8-15.2) gm/dl Hct 41.7 (35.5-45.6) % MCV 94 (84-94) fl MCH 31 (28-32) pg MCHC 33 (32-34) % RDW 14.6 (13.2-15.2) % Plt Count 276 (140-440) K/mm3 Lymph % (Auto) 19.8 (13.4-35.0) % [place] % (Auto) 8.5 H (0.0-7.3) % Eos % (Auto) 0.9 (0.0-4.3) % Baso % (Auto) 0.4 (0.0-1.8) % Lymph # (Auto) 1.1 L (1.2-5.4) K/mm3 [place] # (Auto) 0.5 (0.0-0.8) K/mm3 Eos # (Auto) 0.1 (0.0-0.4) K/mm3 Baso # (Auto) 0.0 (0.0-0.1) K/mm3 Seg Neutrophils % 70.4 H (40.0-70.0) % Seg Neutrophils # 3.8 (1.8-7.7) K/mm3 PT (12.2-14.9) Sec. INR (0.87-1.13) Sodium (137-145) mmol/L Potassium (3.6-5.0) mmol/L Chloride (98-107) mmol/L Carbon Dioxide (22-30) mmol/L Anion Gap mmol/L BUN (9-20) mg/dL Creatinine (0.8-1.3) mg/dL Estimated GFR ml/min BUN/Creatinine Ratio % Glucose (75-100) mg/dL Calcium (8.4-10.2) mg/dL Total Bilirubin (0.1-1.2) mg/dL AST (5-40) units/L ALT (7-56) units/L Alkaline Phosphatase (35-129) units/L Troponin T (0.00-0.029) ng/mL Total Protein (6.3-8.2) g/dL Albumin (3.9-5) g/dL Albumin/Globulin Ratio % Salicylates < 0.3 L (2.8-20.0) mg/dL Acetaminophen 5.0 L (10.0-30.0) ug/mL Plasma/Serum Alcohol (0-0.07) % Lab Results 10/12/21 10/12/21 10/12/21 Range/Units 08:10 08:10 08:10 WBC (4.5-11.0) K/mm3 RBC (3.65-5.03) M/mm3 Hgb (11.8-15.2) gm/dl Hct (35.5-45.6) % MCV (84-94) fl MCH (28-32) pg MCHC (32-34) % RDW (13.2-15.2) % Plt Count (140-440) K/mm3 Lymph % (Auto) (13.4-35.0) % [place] % (Auto) (0.0-7.3) % Eos % (Auto) (0.0-4.3) % Baso % (Auto) (0.0-1.8) % Lymph # (Auto) (1.2-5.4) K/mm3 [place] # (Auto) (0.0-0.8) K/mm3 Eos # (Auto) (0.0-0.4) K/mm3 Baso # (Auto) (0.0-0.1) K/mm3 Seg Neutrophils % (40.0-70.0) % Seg Neutrophils # (1.8-7.7) K/mm3 PT 12.8 (12.2-14.9) Sec. INR 0.87 (0.87-1.13) Sodium 139 (137-145) mmol/L Potassium 4.6 (3.6-5.0) mmol/L Chloride 99.1 (98-107) mmol/L Carbon Dioxide 26 (22-30) mmol/L Anion Gap 19 mmol/L BUN 21 H (9-20) mg/dL Creatinine 1.2 (0.8-1.3) mg/dL Estimated GFR 60 ml/min BUN/Creatinine Ratio 18 % Glucose 85 (75-100) mg/dL Calcium 9.5 (8.4-10.2) mg/dL Total Bilirubin 0.20 (0.1-1.2) mg/dL AST 13 (5-40) units/L ALT 14 (7-56) units/L Alkaline Phosphatase 52 (35-129) units/L Troponin T < 0.010 (0.00-0.029) ng/mL Total Protein 6.8 (6.3-8.2) g/dL Albumin 4.0 (3.9-5) g/dL Albumin/Globulin Ratio 1.4 % Salicylates (2.8-20.0) mg/dL Acetaminophen (10.0-30.0) ug/mL Plasma/Serum Alcohol < 0.01 (0-0.07) % 10/12/21 10/12/21 10/12/21 Range/Units 08:10 08:10 08:15 WBC 5.3 (4.5-11.0) K/mm3 RBC 4.46 (3.65-5.03) M/mm3 Hgb 13.7 (11.8-15.2) gm/dl Hct 41.7 (35.5-45.6) % MCV 94 (84-94) fl MCH 31 (28-32) pg MCHC 33 (32-34) % RDW 14.6 (13.2-15.2) % Plt Count 276 (140-440) K/mm3 Lymph % (Auto) 19.8 (13.4-35.0) % [place] % (Auto) 8.5 H (0.0-7.3) % Eos % (Auto) 0.9 (0.0-4.3) % Baso % (Auto) 0.4 (0.0-1.8) % Lymph # (Auto) 1.1 L (1.2-5.4) K/mm3 [place] # (Auto) 0.5 (0.0-0.8) K/mm3 Eos # (Auto) 0.1 (0.0-0.4) K/mm3 Baso # (Auto) 0.0 (0.0-0.1) K/mm3 Seg Neutrophils % 70.4 H (40.0-70.0) % Seg Neutrophils # 3.8 (1.8-7.7) K/mm3 PT (12.2-14.9) Sec. INR (0.87-1.13) Sodium (137-145) mmol/L Potassium (3.6-5.0) mmol/L Chloride (98-107) mmol/L Carbon Dioxide (22-30) mmol/L Anion Gap mmol/L BUN (9-20) mg/dL Creatinine (0.8-1.3) mg/dL Estimated GFR ml/min BUN/Creatinine Ratio % Glucose (75-100) mg/dL Calcium (8.4-10.2) mg/dL Total Bilirubin (0.1-1.2) mg/dL AST (5-40) units/L ALT (7-56) units/L Alkaline Phosphatase (35-129) units/L Troponin T (0.00-0.029) ng/mL Total Protein (6.3-8.2) g/dL Albumin (3.9-5) g/dL Albumin/Globulin Ratio % Salicylates < 0.3 L (2.8-20.0) mg/dL Acetaminophen 5.0 L (10.0-30.0) ug/mL Plasma/Serum Alcohol (0-0.07) % Vital Signs 10/12/21 11:12 Temperature 97.4 F L Pulse Rate 73 Respiratory 18 Rate Blood Pressure 118/71 [Left] O2 Sat by Pulse 98 Oximetry Lab Results 10/12/21 10/12/21 10/12/21 Range/Units 08:10 08:10 08:10 WBC (4.5-11.0) K/mm3 RBC (3.65-5.03) M/mm3 Hgb (11.8-15.2) gm/dl Hct (35.5-45.6) % MCV (84-94) fl MCH (28-32) pg MCHC (32-34) % RDW (13.2-15.2) % Plt Count (140-440) K/mm3 Lymph % (Auto) (13.4-35.0) % [place] % (Auto) (0.0-7.3) % Eos % (Auto) (0.0-4.3) % Baso % (Auto) (0.0-1.8) % Lymph # (Auto) (1.2-5.4) K/mm3 [place] # (Auto) (0.0-0.8) K/mm3 Eos # (Auto) (0.0-0.4) K/mm3 Baso # (Auto) (0.0-0.1) K/mm3 Seg Neutrophils % (40.0-70.0) % Seg Neutrophils # (1.8-7.7) K/mm3 PT 12.8 (12.2-14.9) Sec. INR 0.87 (0.87-1.13) Sodium 139 (137-145) mmol/L Potassium 4.6 (3.6-5.0) mmol/L Chloride 99.1 (98-107) mmol/L Carbon Dioxide 26 (22-30) mmol/L Anion Gap 19 mmol/L BUN 21 H (9-20) mg/dL Creatinine 1.2 (0.8-1.3) mg/dL Estimated GFR 60 ml/min BUN/Creatinine Ratio 18 % Glucose 85 (75-100) mg/dL Calcium 9.5 (8.4-10.2) mg/dL Total Bilirubin 0.20 (0.1-1.2) mg/dL AST 13 (5-40) units/L ALT 14 (7-56) units/L Alkaline Phosphatase 52 (35-129) units/L Troponin T < 0.010 (0.00-0.029) ng/mL Total Protein 6.8 (6.3-8.2) g/dL Albumin 4.0 (3.9-5) g/dL Albumin/Globulin Ratio 1.4 % Urine Color (Yellow) Urine Turbidity (Clear) Urine pH (5.0-7.0) Ur Specific [place] (1.003-1.030) Urine Protein (Negative) mg/dL Urine Glucose (UA) (Negative) mg/dL Urine Ketones (Negative) mg/dL Urine Blood (Negative) Urine Nitrite (Negative) Urine Bilirubin (Negative) Urine Urobilinogen (<2.0) mg/dL Ur Leukocyte Esterase (Negative) Urine WBC (Auto) (0.0-6.0) /HPF Urine RBC (Auto) (0.0-6.0) /HPF Urine Mucus /HPF Salicylates (2.8-20.0) mg/dL Acetaminophen (10.0-30.0) ug/mL Plasma/Serum Alcohol < 0.01 (0-0.07) % 10/12/21 10/12/21 10/12/21 Range/Units 08:10 08:10 08:15 WBC 5.3 (4.5-11.0) K/mm3 RBC 4.46 (3.65-5.03) M/mm3 Hgb 13.7 (11.8-15.2) gm/dl Hct 41.7 (35.5-45.6) % MCV 94 (84-94) fl MCH 31 (28-32) pg MCHC 33 (32-34) % RDW 14.6 (13.2-15.2) % Plt Count 276 (140-440) K/mm3 Lymph % (Auto) 19.8 (13.4-35.0) % [place] % (Auto) 8.5 H (0.0-7.3) % Eos % (Auto) 0.9 (0.0-4.3) % Baso % (Auto) 0.4 (0.0-1.8) % Lymph # (Auto) 1.1 L (1.2-5.4) K/mm3 [place] # (Auto) 0.5 (0.0-0.8) K/mm3 Eos # (Auto) 0.1 (0.0-0.4) K/mm3 Baso # (Auto) 0.0 (0.0-0.1) K/mm3 Seg Neutrophils % 70.4 H (40.0-70.0) % Seg Neutrophils # 3.8 (1.8-7.7) K/mm3 PT (12.2-14.9) Sec. INR (0.87-1.13) Sodium (137-145) mmol/L Potassium (3.6-5.0) mmol/L Chloride (98-107) mmol/L Carbon Dioxide (22-30) mmol/L Anion Gap mmol/L BUN (9-20) mg/dL Creatinine (0.8-1.3) mg/dL Estimated GFR ml/min BUN/Creatinine Ratio % Glucose (75-100) mg/dL Calcium (8.4-10.2) mg/dL Total Bilirubin (0.1-1.2) mg/dL AST (5-40) units/L ALT (7-56) units/L Alkaline Phosphatase (35-129) units/L Troponin T (0.00-0.029) ng/mL Total Protein (6.3-8.2) g/dL Albumin (3.9-5) g/dL Albumin/Globulin Ratio % Urine Color (Yellow) Urine Turbidity (Clear) Urine pH (5.0-7.0) Ur Specific [place] (1.003-1.030) Urine Protein (Negative) mg/dL Urine Glucose (UA) (Negative) mg/dL Urine Ketones (Negative) mg/dL Urine Blood (Negative) Urine Nitrite (Negative) Urine Bilirubin (Negative) Urine Urobilinogen (<2.0) mg/dL Ur Leukocyte Esterase (Negative) Urine WBC (Auto) (0.0-6.0) /HPF Urine RBC (Auto) (0.0-6.0) /HPF Urine Mucus /HPF Salicylates < 0.3 L (2.8-20.0) mg/dL Acetaminophen 5.0 L (10.0-30.0) ug/mL Plasma/Serum Alcohol (0-0.07) % 10/12/21 Range/Units Unknown WBC (4.5-11.0) K/mm3 RBC (3.65-5.03) M/mm3 Hgb (11.8-15.2) gm/dl Hct (35.5-45.6) % MCV (84-94) fl MCH (28-32) pg MCHC (32-34) % RDW (13.2-15.2) % Plt Count (140-440) K/mm3 Lymph % (Auto) (13.4-35.0) % [place] % (Auto) (0.0-7.3) % Eos % (Auto) (0.0-4.3) % Baso % (Auto) (0.0-1.8) % Lymph # (Auto) (1.2-5.4) K/mm3 [place] # (Auto) (0.0-0.8) K/mm3 Eos # (Auto) (0.0-0.4) K/mm3 Baso # (Auto) (0.0-0.1) K/mm3 Seg Neutrophils % (40.0-70.0) % Seg Neutrophils # (1.8-7.7) K/mm3 PT (12.2-14.9) Sec. INR (0.87-1.13) Sodium (137-145) mmol/L Potassium (3.6-5.0) mmol/L Chloride (98-107) mmol/L Carbon Dioxide (22-30) mmol/L Anion Gap mmol/L BUN (9-20) mg/dL Creatinine (0.8-1.3) mg/dL Estimated GFR ml/min BUN/Creatinine Ratio % Glucose (75-100) mg/dL Calcium (8.4-10.2) mg/dL Total Bilirubin (0.1-1.2) mg/dL AST (5-40) units/L ALT (7-56) units/L Alkaline Phosphatase (35-129) units/L Troponin T (0.00-0.029) ng/mL Total Protein (6.3-8.2) g/dL Albumin (3.9-5) g/dL Albumin/Globulin Ratio % Urine Color Yellow (Yellow) Urine Turbidity Clear (Clear) Urine pH 5.0 (5.0-7.0) Ur Specific [place] 1.023 (1.003-1.030) Urine Protein <15 mg/dl (Negative) mg/dL Urine Glucose (UA) Neg (Negative) mg/dL Urine Ketones Tr (Negative) mg/dL Urine Blood Neg (Negative) Urine Nitrite Neg (Negative) Urine Bilirubin Neg (Negative) Urine Urobilinogen < 2.0 (<2.0) mg/dL Ur Leukocyte Esterase Neg (Negative) Urine WBC (Auto) 1.0 (0.0-6.0) /HPF Urine RBC (Auto) 1.0 (0.0-6.0) /HPF Urine Mucus 1+ /HPF Salicylates (2.8-20.0) mg/dL Acetaminophen (10.0-30.0) ug/mL Plasma/Serum Alcohol (0-0.07) % - EKG Data -: EKG Interpreted by Ri EKG shows normal: sinus rhythm Rate: normal - EKG Data 10/12/21 11:34 The EKG is interpreted at 11: 34 Sinus rhythm, with a rate of 75 bpm. Normal axis, normal P wave axis. There is motion artifact. The QTC is 446 ms. The NV interval is 180 ms. This is an abnormal EKG. There is motion artifact. The EKG is not a STEMI. - Radiology Data Radiology results: pending, report reviewed, image reviewed XR pelvis 1-2V INDICATION / CLINICAL INFORMATION: fall leg pain. COMPARISON: None available. FINDINGS: No acute fracture. Normal alignment. Joint spaces are preserved. No destructive osseous lesion or suspicious periosteal reaction. Impression: 1.No acute fracture. Signer Name: Ari Barajas MD Signed: 10/12/2021 8:54 AM Workstation Name: [id number] KNEE 3 VIEWS INDICATION: Fall, pain, injury. COMPARISON: None. IMPRESSION: Moderate to severe osteoarthritic changes are identified. The medial compartment and patellofemoral compartment are most affected. No acute osseous injury, bone lesion or large joint effusion is detected. Moderate soft tissue vascular calcifications are noted. Signer Name: Corbin Fernandez Jr, MD Signed: 10/12/2021 8:55 AM Workstation Name: [id number] CT cervical spine wo con, CT head/brain wo con INDICATION: dall dementia closed head injury. TECHNIQUE: CT head and cervical spine without contrast. All CT scans at this location are performed using CT dose reduction for ALARA by means of automated exposure control. COMPARISON: None. FINDINGS: HEAD: Intracranial: Basurto-white matter differentiation is maintained. No intracranial hemorrhage. No extra axial collection.. No hydrocephalus. No herniation. Sinuses: Complete opacification of the right maxillary sinus with partial opacification of the right anterior ethmoid air cells and right frontal sinus. Hyperostosis of the right maxillary sparks. Minimal opacification of bilateral mastoid air cells. Orbits: Globes are intact Calvarium: No acute fracture. CERVICAL: Alignment: Normal alignment. Vertebrae: No fracture. Vertebral body heights are preserved. C1 and C2 are congruent. Atlantooccipital joint is maintained. Spondylolysis: Multilevel spondylosis with significant foraminal narrowing at multiple levels osseous fusion of the left C2-C3 articular processes.. Soft tissues: No prevertebral soft tissue thickening. Additional findings: No significant additional findings. IMPRESSION: 1. No acute intracranial abnormality. 2.No cervical spine fracture. 3. Right ostiomeatal unit complex obstruction pattern of sinus disease. Signer Name: Ari Barajas MD Signed: 10/12/2021 9:12 AM Workstation Name: [id number] XR chest 1V ap INDICATION / CLINICAL INFORMATION: Fall hx of chest pain COMPARISON: None available. FINDINGS: SUPPORT DEVICES: None. HEART / MEDIASTINUM: No significant abnormality. LUNGS / PLEURA: Lungs are clear. Cost ophrenic sulci are sharp. No pneumothorax. ADDITIONAL FINDINGS: Left shoulder arthropathy. No significant additional findings. IMPRESSION: 1. No acute findings. Signer Name: Ari Barajas MD Signed: 10/12/2021 8:53 AM Workstation Name: [id number] Critical care attestation.: If time is entered above; I have spent that time in minutes in the direct care of this critically ill patient, excluding procedure time. ED Disposition Clinical Impression: Fall, Dementia, Abrasion of knee, right, Encounter for medical screening examination, Arthritis of right knee, Arthropathy of left shoulder, Maxillary sinusitis Disposition: [facility] Is pt being admited?: No Does the pt Need Aspirin: No Condition: Stable Additional Instructions: The patient was not found to have an emergent medical condition present today while in the emergency room. Patient had laboratory studies and radiology s tudies today obtained, which have your primary care doctor contact the medical records department to obtain copies of laboratory studies and radiology studies, to follow-up on nonemergent incidental abnormal findings. We do recommend that fall precautions are initiated for this patient. We also recommend discontinuation/tapering down of sedating medications. Please return to the emergency room right away with new pain, worsened pain, migration of pain, projectile vomiting, change in mental status, confusion, inability tolerate liquid feeds, new, worsened or different symptoms not present on the initial emergency room evaluation Referrals: [facility] [Provider Group] - as needed
[2021-10-12 08:44] LABS: Basophils % (Auto) 0.4 % (0.0-1.8); Eosinophils # (Auto) 0.1 K/mm3 (0.0-0.4); Eosinophils % (Auto) 0.9 % (0.0-4.3); Hematocrit 41.7 % (35.5-45.6); Hemoglobin 13.7 gm/dl (11.8-15.2); Lymphocytes # (Auto) 1.1 K/mm3 (1.2-5.4); Lymphocytes % (Auto) 19.8 % (13.4-35.0); Mean Corpuscular HGB Conc 33 % (32-34); Mean Corpuscular Volume 94 fl (84-94); Monocytes # (Auto) 0.5 K/mm3 (0.0-0.8); Monocytes % (Auto) 8.5 % (0.0-7.3); Platelet Count 276 K/mm3 (140-440); Red Blood Count 4.46 M/mm3 (3.65-5.03); Red Cell Distribution Width 14.6 % (13.2-15.2)
[2021-10-12 08:57] LABS: INR 0.87 (0.87-1.13)
[2021-10-12 09:09] LABS: Alanine Aminotransferase 14 units/L (7-56); BUN/Creatinine Ratio 18; Blood Urea Nitrogen 21 mg/dL (9-20); Calcium 9.5 mg/dL (8.4-10.2); Hemolysis Index 10
--- NOTE | 2021-10-12 10:01 | XRay Report ---
XR chest 1V ap INDICATION / CLINICAL INFORMATION: Fall hx of chest pain COMPARISON: None available. FINDINGS: SUPPORT DEVICES: None. HEART / MEDIASTINUM: No significant abnormality. LUNGS / PLEURA: Lungs are clear. Costophrenic sulci are sharp. No pneumothorax. ADDITIONAL FINDINGS: Left shoulder arthropathy. No significant additional findings. IMPRESSION: 1. No acute findings. Signer Name: Ari Barajas MD Signed: 10/12/2021 9:53 AM Workstation Name: [id number]
--- NOTE | 2021-10-12 10:02 | XRay Report ---
RIGHT KNEE 3 VIEWS INDICATION: Fall, pain, injury. COMPARISON: None. IMPRESSION: Moderate to severe osteoarthritic changes are identified. The medial compartment and pat ellofemoral compartment are most affected. No acute osseous injury, bone lesion or large joint effus ion is detected. Moderate soft tissue vascular calcifications are noted. Signer Name: Corbin Fernandez Jr, MD Signed: 10/12/2021 9:55 AM Workstation Name: [id number]
--- NOTE | 2021-10-12 10:02 | XRay Report ---
XR pelvis 1-2V INDICATION / CLINICAL INFORMATION: fall leg pain. COMPARISON: None available. FINDINGS: No acute fracture. Normal alignment. Joint spaces are preserved. No destructive osseous lesion or s uspicious periosteal reaction. Impression: 1.No acute fracture. Signer Name: Ari Barajas MD Signed: 10/12/2021 9:54 AM Workstation Name: [id number]
--- NOTE | 2021-10-12 10:16 | Cat Scan Report ---
CT cervical spine wo con, CT head/brain wo con INDICATION: dall dementia closed head injury. TECHNIQUE: CT head and cervical spine without contrast. All CT scans at this location are performed u sing CT dose reduction for ALARA by means of automated exposure control. COMPARISON: None. FINDINGS: HEAD: Intracranial: Basurto-white matter differentiation is maintained. No intracranial hemorrhage. No extra a xial collection.. No hydrocephalus. No herniation. Sinuses: Complete opacification of the right maxillary sinus with partial opacification of the right anterior ethmoid air cells and right frontal sinus. Hyperostosis of the right maxillary sparks. Minima l opacification of bilateral mastoid air cells. Orbits: Globes are intact Calvarium: No acute fracture. CERVICAL: Alignment: Normal alignment. Vertebrae: No fracture. Vertebral body heights are preserved. C1 and C2 are congruent. Atlantooccipi shahid joint is maintained. Spondylolysis: Multilevel spondylosis with significant foraminal narrowing at multiple levels osseous fusion of the left C2-C3 articular processes.. Soft tissues: No prevertebral soft tissue thickening. Additional findings: No significant additional findings. IMPRESSION: 1. No acute intracranial abnormality. 2.No cervical spine fracture. 3. Right ostiomeatal unit complex obstruction pattern of sinus disease. Signer Name: Ari Barajas MD Signed: 10/12/2021 10:12 AM Workstation Name: [id number]
[2021-10-12 11:13] VITALS: BP 118/71
[2021-10-12 11:57] LABS: Bilirubin,Urine NEG (Negative); Blood,Urine NEG (Negative); Color,Urine Yellow (Yellow); Mucus,Urine 1+ /HPF; Protein,Urine <15 mg/dL mg/dL (Negative); Urobilinogen,Urine < 2.0 mg/dL (<2.0)
== END 2021-10-12 16:16 ==
LOC: ED 07:42
DX: S80.211A Abrasion, right knee, initial encounter (principal); F03.90 Unspecified dementia, unspecified severity, without behavioral disturbance, psychotic disturbance, mood disturbance, and anxiety; J32.0 Chronic maxillary sinusitis; Z00.00 Encounter for general adult medical examination without abnormal findings; M19.012 Primary osteoarthritis, left shoulder; M17.11 Unilateral primary osteoarthritis, right knee; X58.XXXA Exposure to other specified factors, initial encounter; Y93.89 Activity, other specified; Y92.89 Other specified places as the place of occurrence of the external cause; Y99.8 Other external cause status
CPT/HCPCS: 36415; 70450; 71045; 72125; 72170; 80053; 80320; 81001; 84484; 85025; 85610; 99284; G0480

== ENCOUNTER 2021-12-09 13:48 | Emergency (ER) | payer MEDICARE ==
[2021-12-09 13:51] VITALS: BP 158/95
--- NOTE | 2021-12-09 14:22 | Emergency Department Report ---
ED General Adult HPI - General Chief complaint: Medical Clearance Stated complaint: OUT OF PSYCH MEDS Time Seen by Provider: 12/09/21 13:49 Source: EMS Mode of arrival: Ambulatory Limitations: No Limitations - History of Present Illness Initial comments: Patient presents by ambulance secondary to a medication refill. He ran out of his psychiatric meds several days ago. He states that he tried to see his psychiatrist, but could not get through. Patient states he is out of all of his medications. He has a history of parkinsonism. He does not know what medicine he takes for his Parkinson's disease. He states that he needs refills on everything. He is not suicidal homicidal. He is not delusional. He is not paranoid. He has no chest pain or shortness of breath. He states that he only came in because he needed a refill. - Related Data Home Medications Medication Instructions Recorded Confirmed Last Taken clonazePAM [Klonopin] 1 mg PO QPM 11/13/21 11/13/21 Unknown Previous Rx's Medication Instructions Recorded Last Taken Type Aspirin [Aspirin BABY CHEW TAB] 81 mg PO QDAY #30 tab.chew 11/14/21 Unknown Rx HYDROcodone/APAP 7.5-325 [[place] 1 each PO Q6HR PRN #20 tablet 11/14/21 Unknown Rx 7.5/325] traMADoL [Ultram 50 MG tab] 50 mg PO Q6HR PRN #30 tablet 11/14/21 Unknown Rx AtorvaSTATin [Lipitor] 20 mg PO QHS #15 tab 12/09/21 Unknown Rx Duloxetine HCl [Cymbalta] 120 mg PO QDAY #30 tab 12/09/21 Unknown Rx Levothyroxine [Synthroid] 50 mcg PO DAILY #15 tab 12/09/21 Unknown Rx clonazePAM [Klonopin] 0.5 mg PO BID #30 tab 12/09/21 Unknown Rx donepeziL [Aricept] 10 mg PO QHS #15 tab 12/09/21 Unknown Rx traZODone [Desyrel] 50 mg PO QHS #30 tab 12/09/21 Unknown Rx Allergies Allergy/AdvReac Type Severity Reaction Status Date / Time apple AdvReac Diarrhea Verified 12/09/21 13:51 ED Review of Systems ROS: Stated complaint: OUT OF PSYCH MEDS Other details as noted in HPI Comment: All other systems reviewed and negative Constitutional: denies: fever Eyes: denies: eye pain ENT: denies: throat pain Respiratory: denies: cough Cardiovascular: denies: chest pain Endocrine: denies: unexplained weight loss Gastrointestinal: denies: abdominal pain Genitourinary: denies: dysuria Musculoskeletal: denies: back pain Skin: denies: rash Neurological: denies: headache Hematological/Lymphatic: denies: easy bruising ED Past Medical Hx - Past Medical History Hx Hypertension: Yes Hx Arthritis: Yes (hands) Hx Seizures: Yes Hx Psychiatric Treatment: Yes Hx Dementia: Yes Additional medical history: Bipolar, anxiety, hyperlipidemia, tremors, alcohol abuse, Chest pain - Surgical History Additional Surgical History: left leg with cast. - Family History Family history: hypertension - Social History Smoking Status: Never Smoker - Medications Home Medications: Home Medications Medication Instructions Recorded Confirmed Last Taken Type clonazePAM [Klonopin] 1 mg PO QPM 11/13/21 11/13/21 Unknown History Aspirin [Aspirin BABY CHEW TAB] 81 mg PO QDAY #30 tab.chew 11/14/21 Unknown Rx HYDROcodone/APAP 7.5-325 [[place] 1 each PO Q6HR PRN #20 tablet 11/14/21 Unknown Rx 7.5/325] traMADoL [Ultram 50 MG tab] 50 mg PO Q6HR PRN #30 tablet 11/14/21 Unknown Rx AtorvaSTATin [Lipitor] 20 mg PO QHS #15 tab 12/09/21 Unknown Rx Duloxetine HCl [Cymbalta] 120 mg PO QDAY #30 tab 12/09/21 Unknown Rx Levothyroxine [Synthroid] 50 mcg PO DAILY #15 tab 12/09/21 Unknown Rx clonazePAM [Klonopin] 0.5 mg PO BID #30 tab 12/09/21 Unknown Rx donepeziL [Aricept] 10 mg PO QHS #15 tab 12/09/21 Unknown Rx traZODone [Desyrel] 50 mg PO QHS #30 tab 12/09/21 Unknown Rx ED Physical Exam - General Limitations: No Limitations, Other (Pulse ox noted and normal) General appearance: alert, in no apparent distress, other (Diffuse tremor noted) - Head Head exam: Present: atraumatic, normocephalic - Eye Eye exam: Present: normal appearance, PERRL, EOMI. Absent: scleral icterus - ENT ENT exam: Present: normal orophraynx, normal external ear exam - Neck Neck exam: Present: normal inspection. Absent: meningismus - Respiratory Respiratory exam: Present: normal lung sounds bilaterally. Absent: respiratory distress - Cardiovascular Cardiovascular Exam: Present: regular rate, normal rhythm - GI/Abdominal GI/Abdominal exam: Present: soft. Absent: tenderness - Extremities Exam Extremities exam: Present: normal capillary refill - Back Exam Back exam: Present: full ROM - Neurological Exam Neurological exam: Present: alert, oriented X3, CN II-XII intact. Absent: motor sensory deficit - Psychiatric Psychiatric exam: Present: normal mood, anxious - Skin Skin exam: Present: warm, dry ED Course Vital Signs 12/09/21 13:49 Temperature 98 F Pulse Rate 77 Respiratory 18 Rate Blood Pressure 158/95 [Left] O2 Sat by Pulse 95 Oximetry - Reevaluation(s) Reevaluation #1: 12/09/21 14:18 EMS was met upon arrival. Old records noted. Patient was discharged. ED Medical Decision Making - Medical Decision Making Patient presented by ambulance for prescription refill. Is not suicidal homicidal. Is not delusional. He does not need emergent psychiatric evaluation. Patient does not appear to have any physical complaint. There is no suggestion of metabolic derangement. He was discharged. Critical Care Time: No Critical care attestation.: If time is entered above; I have spent that time in minutes in the direct care of this critically ill patient, excluding procedure time. ED Disposition Clinical Impression: Medication refill Disposition: 01 HOME / SELF CARE / HOMELESS Is pt being admited?: No Condition: Stable Instructions: Medicine Refill at the Emergency Department Additional Instructions: See your regular doctor and psychiatrist for prescription needs. Return for problems. Prescriptions: donepeziL [Aricept] 10 mg PO QHS #15 tab traZODone [Desyrel] 50 mg PO QHS #30 tab AtorvaSTATin [Lipitor] 20 mg PO QHS #15 tab Duloxetine HCl [Cymbalta] 120 mg PO QDAY #30 tab clonazePAM [Klonopin] 0.5 mg PO BID #30 tab Levothyroxine [Synthroid] 50 mcg PO DAILY #15 tab Referrals: PRIMARY CARE, [Referring] - 3-5 Days
== END 2021-12-09 17:00 | disposition home or self-care (01) ==
LOC: ED 13:48
DX: F41.9 Anxiety disorder, unspecified (principal); G20 Parkinson's disease; Z76.0 Encounter for issue of repeat prescription; I10 Essential (primary) hypertension; M19.90 Unspecified osteoarthritis, unspecified site; G40.909 Epilepsy, unspecified, not intractable, without status epilepticus; F03.90 Unspecified dementia, unspecified severity, without behavioral disturbance, psychotic disturbance, mood disturbance, and anxiety; Z79.899 Other long term (current) drug therapy; Z98.890 Other specified postprocedural states; Z91.02 Food additives allergy status
CPT/HCPCS: 99283

== ENCOUNTER 2022-02-01 10:59 | Emergency (ER) | payer MEDICARE ==
[2022-02-01 11:12] VITALS: BP 119/75
[2022-02-01] MEDS ORDERED: SODIUM CHLORIDE 0.9% 1000 ML 1,000 ML IV ONE (12:31)
[2022-02-01 13:00] LABS: INR 0.94 (0.87-1.13)
[2022-02-01 13:13] LABS: Basophils % (Auto) 0.3 % (0.0-1.8); Eosinophils # (Auto) 0.2 K/mm3 (0.0-0.4); Eosinophils % (Auto) 4.1 % (0.0-4.3); Hematocrit 40.3 % (35.5-45.6); Hemoglobin 13.1 gm/dl (11.8-15.2); Lymphocytes # (Auto) 1.1 K/mm3 (1.2-5.4); Lymphocytes % (Auto) 21.3 % (13.4-35.0); Mean Corpuscular HGB Conc 33 % (32-34); Mean Corpuscular Volume 94 fl (84-94); Monocytes # (Auto) 0.4 K/mm3 (0.0-0.8); Platelet Count 207 K/mm3 (140-440); Red Blood Count 4.28 M/mm3 (3.65-5.03); Red Cell Distribution Width 15.5 % (13.2-15.2)
[2022-02-01 13:15] LABS: Alanine Aminotransferase 15 units/L (7-56); Albumin 4.2 g/dL (3.9-5); BUN/Creatinine Ratio 14; Blood Urea Nitrogen 15 mg/dL (9-20); Calcium 9.1 mg/dL (8.4-10.2); Hemolysis Index 5
--- NOTE | 2022-02-01 17:32 | Emergency Department Report ---
ED General Adult HPI - General Chief complaint: Fall Stated complaint: BILATERAL LEG PAIN Time Seen by Provider: 02/01/22 11:30 Source: EMS Mode of arrival: Stretcher Limitations: Physical Limitation - History of Present Illness Initial comments: weakness falls , familys ent him here for placement in group home Severity scale (0 -10): 0 Associated Symptoms: denies: denies other symptoms, confusion, chest pain, cough Treatments Prior to Arrival: none - Related Data Home Medications Medication Instructions Recorded Confirmed Last Taken clonazePAM [Klonopin] 1 mg PO QPM 11/13/21 11/13/21 Unknown Previous Rx's Medication Instructions Recorded Last Taken Type Aspirin [Aspirin BABY CHEW TAB] 81 mg PO QDAY #30 tab.chew 11/14/21 Unknown Rx HYDROcodone/APAP 7.5-325 [[place] 1 each PO Q6HR PRN #20 tablet 11/14/21 Unknown Rx 7.5/325] traMADoL [Ultram 50 MG tab] 50 mg PO Q6HR PRN #30 tablet 11/14/21 Unknown Rx AtorvaSTATin [Lipitor] 20 mg PO QHS #15 tab 12/09/21 Unknown Rx Duloxetine HCl [Cymbalta] 120 mg PO QDAY #30 tab 12/09/21 Unknown Rx Levothyroxine [Synthroid] 50 mcg PO DAILY #15 tab 12/09/21 Unknown Rx clonazePAM [Klonopin] 0.5 mg PO BID #30 tab 12/09/21 Unknown Rx donepeziL [Aricept] 10 mg PO QHS #15 tab 12/09/21 Unknown Rx traZODone [Desyrel] 50 mg PO QHS #30 tab 12/09/21 Unknown Rx Allergies Allergy/AdvReac Type Severity Reaction Status Date / Time apple AdvReac Diarrhea Verified 12/09/21 13:51 ED Review of Systems ROS: Stated complaint: BILATERAL LEG PAIN Other details as noted in HPI Constitutional: denies: chills, fever Eyes: denies: eye pain, eye discharge, vision change ENT: denies: ear pain, throat pain Respiratory: denies: cough, shortness of breath, wheezing Cardiovascular: denies: chest pain, palpitations Endocrine: no symptoms reported Gastrointestinal: denies: abdominal pain, nausea, diarrhea Genitourinary: denies: urgency, dysuria Musculoskeletal: denies: back pain, joint swelling, arthralgia Skin: denies: rash, lesions Neurological: denies: headache, weakness, paresthesias Psychiatric: denies: anxiety, depression Hematological/Lymphatic: denies: easy bleeding, easy bruising ED Past Medical Hx - Past Medical History Hx Hypertension: Yes Hx Arthritis: Yes (hands) Hx Seizures: Yes Hx Psychiatric Treatment: Yes Hx Dementia: Yes Additional medical history: Bipolar, anxiety, hyperlipidemia, tremors, alcohol abuse, Chest pain - Surgical History Additional Surgical History: left leg with cast. - Social History Smoking Status: Never Smoker - Medications Home Medications: Home Medications Medication Instructions Recorded Confirmed Last Taken Type clonazePAM [Klonopin] 1 mg PO QPM 11/13/21 11/13/21 Unknown History Aspirin [Aspirin BABY CHEW TAB] 81 mg PO QDAY #30 tab.chew 11/14/21 Unknown Rx HYDROcodone/APAP 7.5-325 [[place] 1 each PO Q6HR PRN #20 tablet 11/14/21 Unknown Rx 7.5/325] traMADoL [Ultram 50 MG tab] 50 mg PO Q6HR PRN #30 tablet 11/14/21 Unknown Rx AtorvaSTATin [Lipitor] 20 mg PO QHS #15 tab 12/09/21 Unknown Rx Duloxetine HCl [Cymbalta] 120 mg PO QDAY #30 tab 12/09/21 Unknown Rx Levothyroxine [Synthroid] 50 mcg PO DAILY #15 tab 12/09/21 Unknown Rx clonazePAM [Klonopin] 0.5 mg PO BID #30 tab 12/09/21 Unknown Rx donepeziL [Aricept] 10 mg PO QHS #15 tab 12/09/21 Unknown Rx traZODone [Desyrel] 50 mg PO QHS #30 tab 12/09/21 Unknown Rx ED Physical Exam - General Limitations: Physical Limitation General appearance: alert, in no apparent distress - Head Head exam: Present: atraumatic, normocephalic - Eye Eye exam: Present: normal appearance - ENT ENT exam: Present: mucous membranes moist - Neck Neck exam: Present: normal inspection - Respiratory Respiratory exam: Present: normal lung sounds bilaterally. Absent: respiratory distress - Cardiovascular Cardiovascular Exam: Present: regular rate, normal rhythm. Absent: systolic mur mur, diastolic murmur, rubs, gallop - GI/Abdominal GI/Abdominal exam: Present: soft, normal bowel sounds - Rectal Rectal exam: Present: deferred - Extremities Exam Extremities exam: Present: normal inspection - Back Exam Back exam: Present: normal inspection - Neurological Exam Neurological exam: Present: alert, oriented X3 - Psychiatric Psychiatric exam: Present: normal affect, normal mood - Skin Skin exam: Present: warm, dry, intact, normal color. Absent: rash ED Course Vital Signs 02/01/22 11:06 Temperature 98.7 F Pulse Rate 60 Respiratory 16 Rate Blood Pressure 119/75 [Left] O2 Sat by Pulse 97 Oximetry ED Medical Decision Making - Lab Data Result diagrams: 02/01/22 12:12 02/01/22 12:12 - Medical Decision Making social consult , pt has a place to go Critical care attestation.: If time is entered above; I have spent that time in minutes in the direct care of this critically ill patient, excluding procedure time. ED Disposition Clinical Impression: Dementia Disposition: 01 HOME / SELF CARE / HOMELESS Is pt being admited?: No Does the pt Need Aspirin: No Condition: Stable Instructions: Dementia, [id number] Referrals: REDDY YAO MD [Primary Care Provider] - 3-5 Days
[2022-02-01] MEDS ORDERED: LORazepam 2 MG/ML VIAL IM PRN (22:37)
--- NOTE | 2022-02-02 10:26 | Electrocardiograph Report ---
[facility] Test Date: 2022-02-02 Test Time: 00:42:39 Pat Name: JENNIFER WILLETT Department: Room: Gender: M [address] Clerk: MIKE : 1950 Requested By: TIFFANIE TREVINO Order Number: [id number] Reading MD: Dallin Glasgow Measurements Intervals [place] Rate: 53 P: 62 [place]: 219 QRS: 50 QRSD: 118 T: 65 QT: 491 QTc: 460 Interpretive Statements Sinus bradycardia Borderline prolonged [place] interval Nonspecific intraventricular conduction delay Compared to ECG 11/12/2021 13:43:42 Intraventricular conduction delay now present Sinus rhythm no longer present Electronically Signed On 02-02-2022 10:26:15 EDT by Dallin Glasgow
== END 2022-02-01 23:08 | disposition home or self-care (01) ==
LOC: ED 10:59
DX: F03.90 Unspecified dementia, unspecified severity, without behavioral disturbance, psychotic disturbance, mood disturbance, and anxiety (principal); I10 Essential (primary) hypertension; R79.1 Abnormal coagulation profile; M19.90 Unspecified osteoarthritis, unspecified site; Z79.899 Other long term (current) drug therapy; Z91.018 Allergy to other foods
CPT/HCPCS: 36415; 80053; 82550; 83735; 84100; 84443; 84484; 85025; 85610; 93005; 96360; 96372; 99284; J2060; J7030; 96361; 96374

== ENCOUNTER 2022-02-01 23:28 | Emergency (ER) | payer MEDICARE ==
--- NOTE | 2022-02-02 00:42 | Emergency Department Report ---
ED General Adult HPI - General Chief complaint: Pain General Stated complaint: CHEST PAIN Time Seen by Provider: 02/02/22 00:36 Source: patient, EMS Mode of arrival: Stretcher Limitations: No Limitations - History of Present Illness Initial comments: Patient is a 71-year-old male with history of dementia returning to emergency department with complaint of chest pain. He was on his way home via EMS when symptoms began and EMS turned around and brought him back. Upon arrival he does not appear to be in any acute distress. He reports pains in his shoulders and across his chest. He was seen here initially for bilateral leg pain. - Related Data Home Medications Medication Instructions Recorded Confirmed Last Taken clonazePAM [Klonopin] 1 mg PO QPM 11/13/21 11/13/21 Unknown Previous Rx's Medication Instructions Recorded Last Taken Type Aspirin [Aspirin BABY CHEW TAB] 81 mg PO QDAY #30 tab.chew 11/14/21 Unknown Rx HYDROcodone/APAP 7.5-325 [[place] 1 each PO Q6HR PRN #20 tablet 11/14/21 Unknown Rx 7.5/325] traMADoL [Ultram 50 MG tab] 50 mg PO Q6HR PRN #30 tablet 11/14/21 Unknown Rx AtorvaSTATin [Lipitor] 20 mg PO QHS #15 tab 12/09/21 Unknown Rx Duloxetine HCl [Cymbalta] 120 mg PO QDAY #30 tab 12/09/21 Unknown Rx Levothyroxine [Synthroid] 50 mcg PO DAILY #15 tab 12/09/21 Unknown Rx clonazePAM [Klonopin] 0.5 mg PO BID #30 tab 12/09/21 Unknown Rx donepeziL [Aricept] 10 mg PO QHS #15 tab 12/09/21 Unknown Rx traZODone [Desyrel] 50 mg PO QHS #30 tab 12/09/21 Unknown Rx Allergies Allergy/AdvReac Type Severity Reaction Status Date / Time apple AdvReac Diarrhea Verified 02/02/22 01:21 ED Review of Systems ROS: Stated complaint: CHEST PAIN Other details as noted in HPI Constitutional: denies: chills, fever Respiratory: denies: cough, shortness of breath, wheezing Cardiovascular: chest pain Endocrine: no symptoms reported Gastrointestinal: denies: abdominal pain, nausea, diarrhea Genitourinary: denies: urgency, dysuria Musculoskeletal: other (Leg pain) Skin: denies: rash, lesions ED Past Medical Hx - Past Medical History Hx Hypertension: Yes Hx Arthritis: Yes (hands) Hx Seizures: Yes Hx Psychiatric Treatment: Yes Hx Dementia: Yes Additional medical history: Bipolar, anxiety, hyperlipidemia, tremors, alcohol abuse, Chest pain - Surgical History Additional Surgical History: left leg with cast. - Social History Smoking Status: Never Smoker Substance Use Type: None - Medications Home Medications: Home Medications Medication Instructions Recorded Confirmed Last Taken Type clonazePAM [Klonopin] 1 mg PO QPM 11/13/21 11/13/21 Unknown History Aspirin [Aspirin BABY CHEW TAB] 81 mg PO QDAY #30 tab.chew 11/14/21 Unknown Rx HYDROcodone/APAP 7.5-325 [[place] 1 each PO Q6HR PRN #20 tablet 11/14/21 Unknown Rx 7.5/325] traMADoL [Ultram 50 MG tab] 50 mg PO Q6HR PRN #30 tablet 11/14/21 Unknown Rx AtorvaSTATin [Lipitor] 20 mg PO QHS #15 tab 12/09/21 Unknown Rx Duloxetine HCl [Cymbalta] 120 mg PO QDAY #30 tab 12/09/21 Unknown Rx Levothyroxine [Synthroid] 50 mcg PO DAILY #15 tab 12/09/21 Unknown Rx clonazePAM [Klonopin] 0.5 mg PO BID #30 tab 12/09/21 Unknown Rx donepeziL [Aricept] 10 mg PO QHS #15 tab 12/09/21 Unknown Rx traZODone [Desyrel] 50 mg PO QHS #30 tab 12/09/21 Unknown Rx ED Physical Exam - General Limitations: No Limitations - Head Head exam: Present: atraumatic, normocephalic - Neck Neck exam: Present: normal inspection - Respiratory Respiratory exam: Present: normal lung sounds bilaterally. Absent: respiratory distress - Cardiovascular Cardiovascular Exam: Present: regular rate, normal rhythm. Absent: systolic murmur, diastolic murmur, rubs, gallop - GI/Abdominal GI/Abdominal exam: Present: soft, normal bowel sounds. Absent: tenderness - Rectal Rectal exam: Present: deferred - Extremities Exam Extremities exam: Present: normal inspection, full ROM. Absent: tenderness - Neurological Exam Neurological exam: Present: alert, CN II-XII intact - Psychiatric Psychiatric exam: Present: other (Demented with intermittent agitation) - Skin Skin exam: Present: warm, dry, intact, normal color ED Course Vital Signs 02/02/22 00:02 Temperature 98.9 F Pulse Rate 58 L Respiratory 18 Rate Blood Pressure 157/78 O2 Sat by Pulse 98 Oximetry ED Medical Decision Making - EKG Data -: EKG Interpreted by Me (Sinus bradycardia with rate of 53. [place] interval 219 ms. No acute ischemic ) - Medical Decision Making Patient given Geodon for agitation. No acute ischemic findings on EKG. Troponin is within normal limits. He is stable for discharge back to nursing facility Critical care attestation.: If time is entered above; I have spent that time in minutes in the direct care of this critically ill patient, excluding procedure time. ED Disposition Clinical Impression: Non-cardiac chest pain, Agitation due to dementia Disposition: 03 [facility] FACILITY Is pt being admited?: No Condition: Stable Instructions: Nonspecific Chest Pain, Adult Time of Disposition: 03:41
[2022-02-02] MEDS ORDERED: ZIPRASIDONE MESYLATE 20 MG VIAL IM ONE (01:15)
[2022-02-02] MEDS ORDERED: WATER FOR INJ Sterile (PF) 10 ML ONE ×2 (01:16→04:46)
[2022-02-02] MEDS: ZIPRASIDONE MESYLATE 20 MG VIAL IM PRN ×3 (01:22→05:29)
[2022-02-02] MEDS ORDERED: LORazepam 2 MG/ML VIAL IM PRN (10:25)
[2022-02-02 11:01] VITALS: BP 130/77
[2022-02-02] MEDS ORDERED: HALOPERIDOL LACTATE 5 MG/1 ML INJ IM PRN (11:48)
== END 2022-02-02 12:28 ==
LOC: ED 23:28
DX: R07.9 Chest pain, unspecified (principal); F03.91 Unspecified dementia, unspecified severity, with behavioral disturbance; I10 Essential (primary) hypertension; Z91.018 Allergy to other foods
CPT/HCPCS: 36415; 84484; 96372; 99284; J2060; J3486; 99283